=== PATIENT | male | born 1965 ===

== ENCOUNTER 2021-10-03 19:52 | Emergency (ER) | payer MEDICAID, SELFPAY ==
[2021-10-03 20:06] VITALS: BP 128/79; PULSE 98; RESP 14; TEMP 35.8; O2SAT 98; BMI 30.9
--- NOTE | 2021-10-03 20:41 | CRLHL7_ITS ---
For Patients: As a result of the Century Cures Act, medical imaging exams and procedure reports are released immediately into your electronic medical record. You may view this report before your referring provider. If you have questions, please contact your health care provider. INDICATION: Persistent cough. TECHNIQUE: Two view chest. FINDINGS: The lungs are clear. The heart, mediastinum and pulmonary vessels are of normal size. There is no evidence of pleural disease. IMPRESSION: Negative chest. Dictated by Harry Cason MD @ 10/03/2021 9:08:44 PM (Electronically Signed)
--- NOTE | 2021-10-03 21:18 | ED.NURSE ---
Report given to DENTON Morel.
--- NOTE | 2021-10-03 21:54 | ED.NURSE ---
Assisted patient with [employer] machine. Issue came up with insurance coverage. [employer] representative said that rx's could be printed and filed at a local pharmacy. Paper RX were provided to patient at time of discharge.
--- NOTE | 2021-10-05 16:55 | ED_ITS ---
HPI - URI/Sore Throat General Chief Complaint: Cough Stated Complaint: Covid+ Time Seen by Provider: 10/03/21 20:33 History of Present Illness HPI Narrative: 56-year-old man presenting to the emergency department with concern of a cough. He says when he eats he wants to cough. Drinking fluids are okay but if there cold this and inspire cough. He denies a history of reactive airway or other lung disease. He describes how in particular hurts his epigastrium with cough. Not pleuritic. Does not have abdominal pain otherwise in no particular food intolerance is. Has not apparently struggle with heartburn. Slight sore throat especially with his cough. Sounds like had more of an escalated episode of coughing this evening. And was recommended to be seen medically by his ?Patron. He was COVID positive 4 weeks ago. Feels like that had mostly resolved. Related Data Home Medications Medication Instructions Recorded Confirmed Insulin See Rx Instructions .Route .COMPLEX 10/03/21 10/03/21 metformin 1,000 mg tablet mg 10/03/21 Allergies Allergy/AdvReac Type Severity Reaction Status Date / Time No Known Drug Allergies Allergy Verified 10/03/21 20:12 Review of Systems Status of ROS: Reports: 10 or more systems reviewed and unremarkable except as noted in History and below PFSH PFSH Social History Smoking Status: Smoker, status unknown How often do you have a drink containing alcohol: never AUDIT-C Alcohol total score: 0 Non-prescribed substance use: denies use Exam Narrative: Exam Narrative: He is pleasant. NAD. Quite calm. Cranial nerves 2-12 intact. Skin is warm and dry. Has psoriatic plaquing over bilateral extremities. Slightly congested about the face but he does not have any swelling erythema or tenderness. Oropharynx is unremarkable other than his missing teeth. Abdomen is overweight soft and nontender. Lungs are clear. Equal expansion excursion. Breathing easily. Extremities are well perfused. No edema. Const: Documenting provider has reviewed patient's vital signs: yes Course Course Hospital Course: Did not require any interventions. Vital Signs Vital signs: Initial Vital Signs Temperature 96.4 F L 10/03/21 20:06 Temperature Source Temporal Artery Scan 10/03/21 20:06 Pulse Rate 98 10/03/21 20:06 Pulse Rhythm 10/03/21 20:06 Respiratory Rate 14 10/03/21 20:06 Blood Pressure 128/79 08/20/22 20:06 Blood Pressure Mean 95 10/03/21 20:06 Blood Pressure Position Sitting 10/03/21 20:06 Pulse Oximetry 98 10/03/21 20:06 Oxygen Delivery Method 10/03/21 20:06 Vital Signs Temperature 96.4 F L 10/03/21 20:06 Pulse Rate 98 10/03/21 20:06 Respiratory Rate 14 10/03/21 20:06 Blood Pressure 128/79 10/03/21 20:06 Pulse Oximetry 98 10/03/21 20:06 Oxygen Delivery Method 10/03/21 20:06 Temperature 96.4 F L 10/03/21 20:06 Pulse Rate 98 10/03/21 20:06 Respiratory Rate 14 10/03/21 20:06 Blood Pressure 128/79 10/03/21 20:06 Pulse Oximetry 98 10/03/21 20:06 Oxygen Delivery Method 10/03/21 20:06 MDM - URI/Sore Throat MDM Narrative Medical decision making narrative: It is not clear to me that there has been lingering cough since COVID diagnosis. Sounds like that was relatively mild. He does not have persistent epigastric pains generally or heartburn symptoms. And think it is unreasonable to do a chest x-ray looking for pneumothorax or evidence of aspiration. He is not actively coughing now. Vitals are well. By my read chest x-ray is WNL. No pneumothorax. No evidence of infiltrate. Discharge Plan Discharge Clinical Impression: Cough Patient Disposition: Home, Self-Care Condition: Stable Additional Instructions: Focus on hydration. Be seen for increasing cough or increasing shortness of breath, associated fever. Cough syrup and prednisone from [facility]. Take the prednisone as 60 mg daily for 2 days then 40 mg daily for 3 more days. Conc?ntrese en la hidrataci?n. Ser visto para aumentar la tos o aumentar la falta de aliento, fiebre asociada. Jarabe para la tos y prednisona de [facility]. [place] la prednisona juvenal 60 mg al d?a kenny 2 d?as y luego 40 mg al d?a kenny 3 d?as m?s. Prescriptions: No Action metformin 1,000 mg tablet Label Comments: TAKE ONE TABLET BY MOUTH TWICE A DAY WITH MORNING AND EVENING MEALS Insulin See Rx Instructions .ROUTE .COMPLEX Rx Instructions: 10units each AM; 15 units at noc; Follow Up/Referrals: Yandel Greer MD [Primary Care Provider] - Stand Alone Forms: [facility] Info Instructions
== END 2021-10-03 22:09 | disposition home or self-care (01) ==
PROVIDERS: Emergency Provider Family Medicine
DX: R05.9 Cough, unspecified (principal); Z86.16 Personal history of COVID-19
CPT/HCPCS: 71046; 99283

== ENCOUNTER 2022-03-04 19:08 | Outpatient (CLI) | payer SELFPAY | END 2022-03-04 19:09 | disposition home or self-care (01) | PROVIDERS: Visit Provider Emergency Medicine Emergency Medical Services | DX: S29.9XXA Unspecified injury of thorax, initial encounter (principal); V89.2XXA Person injured in unspecified motor-vehicle accident, traffic, initial encounter; Y92.410 Unspecified street and highway as the place of occurrence of the external cause | CPT/HCPCS: A0425; A0427 ==

== ENCOUNTER 2022-03-04 19:49 | Emergency (ER) | payer SELFPAY ==
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
--- NOTE | 2022-03-04 19:57 | CRLHL7_ITS ---
For Patients: As a result of the Century Cures Act, medical imaging exams and procedure reports are released immediately into your electronic medical record. You may view this report before your referring provider. If you have questions, please contact your health care provider. INDICATION: Chest pain. TECHNIQUE: Chest 2 views. COMPARISON: 09/2021. FINDINGS: Cardiovascular and mediastinum: Heart size and vasculature are normal in caliber and appearance. Lungs and pleural spaces: The lungs are clear. No pleural effusion or pneumothorax. Bones and soft tissues: No significant findings. IMPRESSION: No evidence of an acute pulmonary process. Dictated by Ramana Rowe MD @ 03/04/2022 8:36:25 PM (Electronically Signed)
[2022-03-04 20:11] VITALS: BP 203/115; PULSE 99; RESP 16; TEMP 36.6; O2SAT 99
[2022-03-04 21:40] VITALS: BP 151/72; PULSE 93; RESP 16; O2SAT 99
[2022-03-04 22:16] VITALS: BP 151/72; PULSE 93; RESP 16; TEMP 36.7; O2SAT 96
== END 2022-03-04 22:18 | disposition home or self-care (01) ==
LOC: ED 21:19
PROVIDERS: Emergency Provider Emergency Medicine Emergency Medical Services
DX: Z71.1 Person with feared health complaint in whom no diagnosis is made (principal); V43.52XA Car driver injured in collision with other type car in traffic accident, initial encounter
CPT/HCPCS: 71046; 76604; 76705; 93005; 93308; 99284; 99285; 99291; G0390

== ENCOUNTER 2022-12-18 21:10 | Day surgery (SDC) | payer MEDICAID, SELFPAY ==
[2022-12-18] VITALS (7 sets, daily range): BP systolic 120–138; BP diastolic 71–81; PULSE 93–107; RESP 16; TEMP 38.6; O2SAT 96–99; BMI 30.9
--- NOTE | 2022-12-18 21:37 | ED.GENADULT ---
HPI - General Adult General Date Seen: 12/18/22 Chief complaint: Abdominal Pain Stated complaint: abdominal pain, constipation Time Seen by Provider: 12/18/22 21:13 Source: patient and manager core Mode of arrival: ambulatory Limitations: language barrier History of Present Illness HPI narrative: Patient is a 57-year-old man, primarily Citizen [place]-speaking, who presents for evaluation of abdominal pain, diarrhea, cough. He says he initially got abdominal pain a few days ago, thought it was due to constipation and started to take MiraLax. He is now having diarrhea but still has abdominal pain. He describes abdominal pain as severe and diffuse. He has maybe had a little nausea but no vomiting. He has a fever here but did not noted fever at home. Cough is occasionally productive of some sputum. No bloody stools. Patient does not smoke or drink. Medications reviewed. No prior abdominal surgeries. History of diabetes and hypertension. History is obtained with the assistance of an manager core. Related Data Home Medications ?Medication ?Instructions ?Recorded ?Confirmed Insulin See Rx Instructions .Route .COMPLEX 10/03/21 06/13/23 metformin 1,000 mg tablet 1,000 mg 10/03/21 glyburide 5 mg tablet 10 mg PO BID 12/19/22 06/13/23 insulin NPH isoph U-100 human 100 20 unit subcut BID 12/19/22 06/13/23 unit/mL subcutaneous suspension (Humulin N NPH U-100 Insulin (isophane susp)) lisinopril 20 mg tablet 20 mg PO DAILY 12/19/22 06/13/23 metformin 1,000 mg tablet 1,000 mg PO BIDWMEAL 12/19/22 12/19/22 polyethylene glycol 3350 17 17 g PO DAILY PRN 12/19/22 06/13/23 gram/dose oral powder (Miralax) aspirin 81 mg tablet,delayed 81 mg PO DAILY diabetes mellitus 06/13/23 06/13/23 release clotrimazole-betamethasone 1 applic topical 06/13/23 %-0.05 % topical cream Previous Rx's ?Medication ?Instructions ?Recorded sennosides 8.6 mg capsule (senna) 8.6 mg PO DAILY PRN constipation 12/19/22 #90 caps cyclobenzaprine 10 mg tablet 10 mg PO TID #15 tabs 02/14/24 ketorolac 10 mg tablet 10 mg PO Q8H 5 days #15 tabs 03/30/23 cyclobenzaprine 10 mg tablet 10 mg PO TID #15 tabs 05/12/23 ketorolac 10 mg tablet 10 mg PO Q8H 5 days #15 tabs 05/12/23 codeine 10 mg-guaifenesin 100 mg/5 10 ml PO Q4-6H PRN #200 mL 06/13/23 mL oral liquid polymyxin B sulfate 10,000 1 drp ophthalmic (eye) Q3H 7 days 06/13/23 unit-trimethoprim 1 mg/mL eye drops #10 mL Allergies Allergy/AdvReac Type Severity Reaction Status Date / Time No Known Drug Allergies Allergy Verified 06/13/23 19:39 Review of Systems Status of ROS: Reports: 10 or more systems reviewed and unremarkable except as noted in History and below [facility] Medical History Psoriasis ?L40.9 - Psoriasis, unspecified (ICD-10) Diabetes ?E11.9 - Type 2 diabetes mellitus without complications (ICD-10) Hypertension ?I10 - Essential (primary) hypertension (ICD-10) Social History (System 05/26/23 @ 11:08 by Shreya Crystal) What is your current living situation?: I presently have a place to live Problems where you live: no known problems Problems where you live details: no known problems In the past 12 months, utilities in danger of being shut off: yes In past 12 months, lack of transportation kept you from medical appts, meetings, work, or getting things needed for daily living: no In the past 12 mos, have been you worried that your food would run out before you had money to buy more?: sometimes true In the past 12 mos, the food you bought just didn't last and you didn't have money to buy more?: sometimes true Smoking Status: Never smoker Do you use any of these nicotine containing products: None Second hand tobacco smoke exposure: No How often do you have a drink containing alcohol: never AUDIT-C Alcohol total score: 0 Non-prescribed substance use: denies use Caffeine: Yes (Coffee) How often does anyone, including family, friends and others, physically hurt you: never How often does anyone, including family, friends and others, insult or talk down to you: never How often does anyone, including family, friends and others, threaten you with harm: never How often does anyone, including family, friends and others, scream or curse at you: never service: No Exam Narrative: Exam Narrative: Vital signs as noted above. In general, an alert, nontoxic middle-aged male. Head: Normocephalic, atraumatic. Eyes: Pupils are equal reactive. Extraocular movements are full. Conjunctivae are normal. ENT: Mucous membranes are moist. Neck: Supple without lymphadenopathy. Heart: Mildly tachycardic, no obvious murmur. Lungs: Clear bilaterally. No increased work of breathing, crackles or wheezes. Abdomen: Soft and nondistended, diffuse tenderness without rebound guarding or rigidity. No localizing tenderness. Extremities: Well perfused. No edema. No calf tenderness. Pulses intact. Neurologic: Patient is alert and oriented to person and place. Speech is fluent. Face is symmetric. Moves all extremities equally. Affect: Normal. Skin: Warm and dry. Well perfused. Const: Vital Signs, click to edit/add: Vital Signs - 24 hr 12/18/22 21:18 12/18/22 21:30 12/18/22 22:26 Temperature 101.5 F H Pulse Rate 105 H 96 Pulse Rate [Pulse Oximeter] 107 H Respiratory Rate 16 16 Blood Pressure 120/80 Blood Pressure [Ri ght Upper Arm] 127/81 Pulse Oximetry 99 99 97 Oxygen Delivery Me thod Room Air Room Air Room Air 12/18/22 22:30 12/18/22 22:31 12/18/22 22:45 Temperature Pulse Rate 96 95 93 Pulse Rate [Pulse Oximeter] Respiratory Rate Blood Pressure 138/71 Blood Pressure [Ri ght Upper Arm] Pulse Oximetry 97 97 96 Oxygen Delivery Me thod 12/18/22 23:54 12/19/22 00:00 12/19/22 00:31 Temperature Pulse Rate 107 H 97 Pulse Rate [Pulse Oximeter] Respiratory Rate Blood Pressure 117/69 Blood Pressure [Ri ght Upper Arm] Pulse Oximetry 99 97 Oxygen Delivery Me thod Documenting provider has reviewed patient's vital signs: yes Course Course ED Course: Differential this point is broad and includes infectious illnesses such as COVID or pneumonia, pancreatitis, cholecystitis, appendicitis, diverticulitis or colitis among others. Will place an IV, give some Toradol to start and see how he does pain boswell. A L normal saline is ordered. I am going to get a little blood work back before deciding on imaging. Labs showed normal LFTs and lipase, elected to get a CT scan of the abdomen. White blood cell count was elevated 12.5, hemoglobin of 13.9 left shift with 79% neutrophils. Metabolic panel unremarkable, blood sugar is 144. Lactate 1.6. CRP is elevated at 3.7, urinalysis is notable for protein and glucose but no significant white blood cells. 5-10 red blood cells. Blood alcohol was negative, COVID was negative. CT abdomen by my review showed inflammatory changes in the right lower quadrant and a dilated appendix, suggestive of acute appendicitis. Final radiology read: FINDINGS: Lower chest: Unremarkable. Liver: Unremarkable. Spleen: Unremarkable. Pancreas: Unremarkable. Gallbladder and bile ducts: Unremarkable. Adrenal glands: Unremarkable. Kidneys: Unremarkable. GI tract: The appendix measures 1.4 cm. Mild periappendiceal fat stranding. No abscess or extraluminal air. Vascular structures: Unremarkable. Lymph nodes: Unremarkable. Miscellaneous: Unremarkable. No free air or significant free fluid. Pelvic Organs: Unremarkable. Bones: Unremarkable for age. IMPRESSION: Acute appendicitis. No abscess or extraluminal air. Findings discussed with Dr. Han at 12:40 a.m. on December 19, 2022.Case discussed with Dr. Richmond on-call for General surgery. Plan pending her review. Plan will be admission to the hospital for appendectomy in the morning. Pain is well controlled at this time. Vital Signs Vital signs: Initial Vital Signs Temperature 101.5 F H 12/18/22 21:18 Temperature Source Temporal Artery Scan 12/18/22 21:18 Pulse Rate 107 H 12/18/22 21:18 Respiratory Rate 16 12/18/22 21:18 Blood Pressure 127/81 12/18/22 21:18 Blood Pressure Mean 96 12/18/22 21:18 Blood Pressure Position Supine 12/18/22 21:18 Pulse Oximetry 99 12/18/22 21:18 Oxygen Delivery Method Room Air 12/18/22 21:18 Vital Signs Temperature 101.5 F H 12/18/22 21:18 Pulse Rate 107 H 12/18/22 21:18 Respiratory Rate 16 12/18/22 21:18 Blood Pressure 127/81 12/18/22 21:18 Pulse Oximetry 99 12/18/22 21:18 Oxygen Delivery Method Room Air 12/18/22 21:18 Temperature 97.7 F 12/19/22 11:45 Pulse Rate 104 H 12/19/22 15:00 Respiratory Rate 16 12/19/22 15:00 Blood Pressure 122/68 12/19/22 13:00 Pulse Oximetry 98 12/19/22 13:00 Oxygen Delivery Method Room Air 12/19/22 13:00 Fraction of Inspired Oxygen 2 12/19/22 10:17 Medical Decision Making Lab Data Labs: Lab Results 12/18/22 Range/Units 21:45 WBC 12.56 H (4.50-11.00) K/uL RBC 4.74 (4.30-5.90) m/uL Hgb 13.9 (13.5-17.5) gm/dL Hct 40.3 (37.0-53.0) % MCV 85 (80-100) fL MCH 29 (26-34) pg MCHC 35 (32-36) gm/dL RDW Coeff of Brendan 12.7 (11.5-15.5) % Plt Count 240 (140-440) K/uL Neut % (Auto) 79.1 H (42.0-72.0) % Lymph % (Auto) 11.5 L (20-44) % [place] % (Auto) 7.7 (0.0-11.0) % Eos % (Auto) 0.6 (0.0-7.0) % Baso % (Auto) 0.3 (0.0-3.0) % Neut # (Auto) 9.90 H (1.7-7.0) K/uL Lymph # (Auto) 1.40 (0.90-2.90) K/uL [place] # (Auto) 1.00 H (0.00-0.90) K/UL Eos # (Auto) 0.10 (0.00-0.50) K/uL Baso # (Auto) 0.00 (0.00-0.30) K/uL Abs Immat Gran (auto) 0.10 (0.00-0.30) K/uL Imm/Tot Granulo (auto) 0.8 % Sodium 138 (135-149) mmol/L Potassium 4.7 (3.6-5.1) mmol/L Chloride 101 (96-114) mmol/L Carbon Dioxide 28 (20-32) mmol/L Anion Gap 9 (7-15) mEq/L BUN 27 (7-30) mg/dL Creatinine 0.9 (0.5-1.5) mg/dL Estimated Creat Clear 76.74 Estimated GFR 100 ml/min Glucose 144 H (60-115) mg/dL Lactate 1.6 (0.5-1.9) mmol/L Calcium 9.9 (8.4-10.6) mg/dL Total Bilirubin 0.8 (0.1-1.5) mg/dL Direct Bilirubin 0.0 (0.0-0.5) mg/dL AST 41 H (12-35) U/L ALT 27 (4-50) U/L Alkaline Phosphatase 104 (40-150) U/L C-Reactive Protein 3.7 H (0.5-1.0) mg/dL Total Protein 7.7 (6.0-8.3) g/dL Albumin 4.3 (3.3-5.0) g/dL Lipase 45 (23-300) U/L Urine Color Yellow (Yellow) Urine Appearance Clear (Clear) Urine pH 5.5 (5.0-8.5) Ur Specific [place] 1.020 (1.000-1.030) Urine Protein 3+ A (Negative) Urine Glucose (UA) 2+ A (Negative) Urine Ketones Negative (Negative) Urine Blood 1+ A (Negative) Urine Nitrite Negative (Negative) Urine Bilirubin Negative (Negative) Urine Urobilinogen 0.2 (0.2-1.0) Ur Leukocyte Esterase Negative (Negative) Urine RBC 5-10 A (0-2) Urine WBC 0-2 (0-5) Ur Squamous Epith Cells Few (None-Few) Urine Bacteria None (None) Ethyl Alcohol < 0.01 L (0.01-0.03) % SARS-CoV-2 (PCR) Negative SARS-CoV-2 (Negative) Influenza Type A (PCR) Negative PCR FLU A (Negative) Influenza Type B (PCR) Negative PCR FLU B (Negative) RSV (PCR) Negative PCR RSV (Negative) Discharge Plan Discharge Clinical Impression: Acute appendicitis Patient Disposition: Admitted As Observation Condition: Improved Activity Level: No strenuous activity Activity Detail: Activity as tolerated. Avoid strenuous activity. No lifting greater than 20 lb for 2 weeks. Discharge Diet: Regular
[2022-12-18 22:00] LABS: Lactate Sepsis w/Reflex* 1.6 mmol/L (0.5-1.9)
[2022-12-18] MEDS: 0.9 % SODIUM CHLORIDE 1000 ml 1,000 ML IV (22:00)
[2022-12-18] MEDS: KETOROLAC 15 MG/ML inj IVP (22:00)
[2022-12-18 22:05] LABS: Appearance Urine Clear (Clear); Bilirubin Urine Negative (Negative); Blood Urine 1+ (Negative); Color Urine Yellow (Yellow); Glucose Urine 2+ (Negative); Ketones Urine Negative (Negative); Leukocyte Esterase Urine Negative (Negative); Nitrite Urine Negative (Negative); Protein Urine 3+ (Negative); Urobilinogen Urine 0.2 (0.2-1.0); pH Urine 5.5 (5.0-8.5)
[2022-12-18 22:13] LABS: Squamous Epithelial Cell Urine Few (None-Few); WBC Urine 0-2 (0-5)
[2022-12-18 22:14] LABS: Albumin* 4.3 g/dL (3.3-5.0)
[2022-12-18 22:15] LABS: Chloride* 101 mmol/L (96-114); Potassium* 4.7 mmol/L (3.6-5.1); Sodium* 138 mmol/L (135-149)
[2022-12-18 22:16] LABS: Basophils Percent Auto 0.3 % (0.0-3.0); Eosinophils Percent Auto 0.6 % (0.0-7.0); Hematocrit 40.3 % (37.0-53.0); Hemoglobin* 13.9 gm/dL (13.5-17.5); Immature Granulocytes Pct Auto 0.8 %; Lymphocytes Percent Auto 11.5 % (20-44); Mean Corpuscular HGB Conc 35 gm/dL (32-36); Mean Corpuscular Hemoglobin 29 pg (26-34); Mean Corpuscular Volume 85 fL (80-100); Monocytes Percent Auto 7.7 % (0.0-11.0); Neutrophils Percent Auto 79.1 % (42.0-72.0); Platelet Count* 240 K/uL (140-440); RDW Coefficient of Variation % 12.7 % (11.5-15.5); Red Blood Count 4.74 m/uL (4.30-5.90); White Blood Count* 12.56 K/uL (4.50-11.00)
[2022-12-18 22:17] LABS: Alkaline Phosphatase* 104 U/L (40-150); Aspartate Amino Transferase* 41 U/L (12-35); Bilirubin Total* 0.8 mg/dL (0.1-1.5); Lipase* 45 U/L (23-300); Total Protein* 7.7 g/dL (6.0-8.3)
[2022-12-18 22:18] LABS: Alanine Aminotransferase* 27 U/L (4-50); Creatinine* 0.9 mg/dL (0.5-1.5); Est. Creatinine Clearance* 76.74; Estimated Glomerular Filt Rate 100 ml/min
[2022-12-18 22:19] LABS: Anion Gap 9 mEq/L (7-15); Blood Urea Nitrogen* 27 mg/dL (7-30); Calcium* 9.9 mg/dL (8.4-10.6); Carbon Dioxide* 28 mmol/L (20-32); Glucose* 144 mg/dL (60-115)
[2022-12-18 22:22] LABS: C Reactive Protein* 3.7 mg/dL (0.5-1.0); Ethanol* < 0.01 % (0.01-0.03); Slide Review Reflex No
--- NOTE | 2022-12-18 22:31 | CRLHL7_ITS ---
For Patients: As a result of the Century Cures Act, medical imaging exams and procedure reports are released immediately into your electronic medical record. You may view this report before your referring provider. If you have questions, please contact your health care provider. INDICATION: Abdominal pain and fever TECHNIQUE: CT abdomen and pelvis acquired with 89 cc Isovue 370 IV contrast. COMPARISON: None FINDINGS: Lower chest: Unremarkable. Liver: Unremarkable. Spleen: Unremarkable. Pancreas: Unremarkable. Gallbladder and bile ducts: Unremarkable. Adrenal glands: Unremarkable. Kidneys: Unremarkable. GI tract: The appendix measures 1.4 cm. Mild periappendiceal fat stranding. No abscess or extraluminal air. Vascular structures: Unremarkable. Lymph nodes: Unremarkable. Miscellaneous: Unremarkable. No free air or significant free fluid. Pelvic Organs: Unremarkable. Bones: Unremarkable for age. IMPRESSION: Acute appendicitis. No abscess or extraluminal air. Findings discussed with Dr. Han at 12:40 a.m. on December 19, 2022. Please note that all CT scans at this facility use dose modulation, iterative reconstruction, and/or weight-based dosing when appropriate to reduce radiation dose to as low as reasonably achievable. Dictated by Lexie De La Cruz MD @ 12/19/2022 12:41:02 AM (Electronically Signed)
[2022-12-18 22:41] LABS: PCR FLU A Negative PCR FLU A (Negative); PCR FLU B Negative PCR FLU B (Negative); PCR RSV Negative PCR RSV (Negative)
[2022-12-18 22:44] LABS: SARS PCR* Negative SARS-CoV-2 (Negative)
[2022-12-18] MEDS: LORazepam 2 MG/ML inj 1 MG IVP (23:16)
[2022-12-19] VITALS (20 sets, daily range): BP systolic 108–165; BP diastolic 55–78; PULSE 90–111; RESP 14–18; TEMP 36.4–36.8; O2SAT 92–100; BMI 29.9
--- NOTE | 2022-12-19 03:00 | W.PM.THH&P_ITS ---
Telehealth- H&P: [facility] History of Present Illness Date Seen: 12/19/22 Chief complaint: abdominal pain, constipation Narrative: Narciso Elmore is seen as an Interactive Telehealth visit. 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 He has been admitted through the emergency room. He is Ethiopian-speaking. Professional web communications specialist was used. He tells me he has had 3 days of increasing abdominal pain by the time he was taken to the hospital it was 10 out of 10. He initially thought it was constipation took MiraLAX at home he has a little bit of loose stools. He was given pain medications in the emergency room his pain is significantly improved. At home he was nauseated but did not vomit. No fevers no chills no chest pain no shortness of breath. He does not have any other symptoms. Review of Systems Narrative: A complete review of systems was performed positive pertinence and negatives in the [facility] [place] Psoriasis ?L40.9 - Psoriasis, unspecified (ICD-10) Diabetes ?E11.9 - Type 2 diabetes mellitus without complications (ICD-10) Hypertension ?I10 - Essential (primary) hypertension (ICD-10) Social History What is your current living situation?: I presently have a place to live Problems where you live: no known problems Problems where you live details: no known problems In the past 12 months, utilities in danger of being shut off: yes In past 12 months, lack of transportation kept you from medical appts, meetings, work, or getting things needed for daily living: no In the past 12 mos, have been you worried that your food would run out before you had money to buy more?: sometimes true In the past 12 mos, the food you bought just didn't last and you didn't have money to buy more?: sometimes true Smoking Status: Never smoker Second hand tobacco smoke exposure: No How often do you have a drink containing alcohol: never AUDIT-C Alcohol total score: 0 Non-prescribed substance use: denies use Caffeine: Yes (Coffee) How often does anyone, including family, friends and others, physically hurt you : never How often does anyone, including family, friends and others, insult or talk down to you: never How often does anyone, including family, friends and others, threaten you with harm: never How often does anyone, including family, friends and others, scream or curse at you: never Meds Home Medications and Allergies Home Medications Medication Instructions Recorded Confirmed Type blood pressure medication 12/18/22 History insulin aspart U-100 .ROUTE 12/18/22 History metformin .ROUTE 12/18/22 History Allergies Allergy/AdvReac Type Severity Reaction Status Date / Time No Known Drug Allergies Allergy Verified 12/18/22 22:36 Exam Narrative Exam Narrative: Physical Exam GENERAL: ?vital signs reviewed, well developed and nourished, in no distress HEENT: pupils are equal round and reactive to light, extraocular movements are grossly within normal limits and oral mucosa is moist. NECK: Supple without lymphadenopathy or thyromegaly according to nursing staff examination observation HEART: Regular rate and rhythm without any rubs, murmurs, or gallops. LUNGS: Clear to auscultation bilaterally with good air movement throughout ABDOMEN: Observation from nurse assisted exam, abdomen appears soft, Mildly tender he does appear to have some guarding does not have any rebound currently mild peritoneal signs.Bowel sounds are present EXTREMITIES: Strength and sensation is observed to be grossly within normal limits in the upper and lower extremities.? No focal strength deficit is observed. SKIN:? Observed warm and dry with color normal Const Vital Signs, click to edit/add: Vital Signs - 24 hr 12/18/22 21:18 12/18/22 21:30 12/18/22 22:26 Temperature 101.5 F H Pulse Rate 105 H 96 Pulse Rate [Pulse Oximeter] 107 H Respiratory Rate 16 16 Blood Pressure 120/80 Blood Pressure [Left Arm] Blood Pressure [Right Upper Arm] 127/81 Pulse Oximetry 99 99 97 Oxygen Delivery Method Room Air Room Air Room Air 12/18/22 22:30 12/18/22 22:31 12/18/22 22:45 Temperature Pulse Rate 96 95 93 Pulse Rate [Pulse Oximeter] Respiratory Rate Blood Pressure 138/71 Blood Pressure [Left Arm] Blood Pressure [Right Upper Arm] Pulse Oximetry 97 97 96 Oxygen Delivery Method 12/18/22 23:54 12/19/22 00:00 12/19/22 00:31 Temperature Pulse Rate 107 H 97 Pulse Rate [Pulse Oximeter] Respiratory Rate Blood Pressure 117/69 Blood Pressure [Left Arm] Blood Pressure [Right Upper Arm] Pulse Oximetry 99 97 Oxygen Delivery Method 12/19/22 01:00 CDT 12/19/22 01:28 CDT 12/19/22 01:03 REFUSE LABORER Temperature 98.1 F 98.2 F Pulse Rate 94 Pulse Rate [Pulse Oximeter] 95 Respiratory Rate 16 18 Blood Pressure 108/55 L Blood Pressure [Left Arm] 165/78 H Blood Pressure [Right Upper Arm] Pulse Oximetry 98 100 Oxygen Delivery Method Room Air Room Air 12/19/22 01:03 REFUSE LABORER Temperature Pulse Rate Pulse Rate [Pulse Oximeter] Respiratory Rate 16 Blood Pressure Blood Pressure [Left Arm] Blood Pressure [Right Upper Arm] Pulse Oximetry 100 Oxygen Delivery Method Room Air Hospitalist - H&P: Result Labs Labs: Short CBC 12/18/22 Range/Units 21:45 WBC 12.56 H (4.50-11.00) K/uL Hgb 13.9 (13.5-17.5) gm/dL Hct 40.3 (37.0-53.0) % Plt Count 240 (140-440) K/uL BMP 12/18/22 21:45 Sodium 138 Potassium 4.7 Chloride 101 Carbon Dioxide 28 BUN 27 Creatinine 0.9 Glucose 144 H Calcium 9.9 Liver Function 12/18/22 Range/Units 21:45 Total Bilirubin 0.8 (0.1-1.5) mg/dL Direct Bilirubin 0.0 (0.0-0.5) mg/dL AST 41 H (12-35) U/L ALT 27 (4-50) U/L Alkaline Phosphatase 104 (40-150) U/L Albumin 4.3 (3.3-5.0) g/dL Urine 12/18/22 Range/Units 21:45 Urine Color Yellow (Yellow) Urine Appearance Clear (Clear) Urine pH 5.5 (5.0-8.5) Ur Specific [place] 1.020 (1.000-1.030) Urine Protein 3+ A (Negative) Urine Glucose (UA) 2+ A (Negative) Assessment and Plan Assessment and plan (1) Acute appendicitis: Status: Acute (2) Diabetes: Status: Acute (3) Hypertension: Status: Acute Plan Acute appendicitis?patient with a mild white count fever. He does not look particularly toxic at this point we will place him on Invanz. CT scan supporting the diagnosis of appendicitis. Surgery was contacted by the emergen cy room. We will keep him n.p.o. Anticipate surgery in the morning. This was discussed in detail with patient via layer out. We will use IV hydromorphone for pain control along with Toradol. Normal saline at 100 MLS per hour. Diabetes?patient sounds like he takes insulin unclear what kind and how much he takes. It sounds like he takes 20 units twice a day likely glargine but potentially could be other types of insulin. This will need to be clarified for now we will place him on the low-dose sliding scale. It also sounds like he may be on metformin. We will need to clarify his doses. Hypertension?patient appears to take something for high blood pressure. We will need to clarify this. DVT prophylaxis will use subcutaneous Lovenox CODE STATUS was discussed on admission he wishes to be a full code Telehealth: Statement Statement Telehealth Visit: Today's History and Physical is provided via interactive telehealth by Richard An DO.? Patient is located at [facility].? Provider is located at [facility].? Nursing staff assisted with the patient's exam. The visit being done today meets criteria for a telehealth visit and the patient or patient?s parent/guardian is aware the visit is a telehealth visit. Camera Start Time: 02:19 Camera End Time: 02:44
[2022-12-19] MEDS: SODIUM CHLORIDE 0.9 % (FLUSH) 10 ML SYRINGE 5 ML IVF (03:12)
[2022-12-19] MEDS: ERTAPENEM 1 GM in 0.9 % SODIUM CHLORIDE Mini-bag 100 ML IVPB (03:12)
[2022-12-19] MEDS: 0.9 % SODIUM CHLORIDE 1000 ml 1,000 ML 100 ML IV ×2 (03:13→12:00)
--- NOTE | 2022-12-19 06:05 | PC.NURSE ---
Pt alert and oriented x3. Afebrile. Pt reports having 10/10 abdominal pain emergency department but states he is having 0/10 now, pt was given Toradol in emergency department. Pt is up ad dari in room. Pt has been tolerating a NPO diet since 2300 per report from RN in ER. Pt slept throughout most of night after admission around 0140.
--- NOTE | 2022-12-19 09:01 | P.GSCN_ITS ---
History of Present Illness Consult details Date Seen: 12/19/22 Consult date: 12/19/22 Narrative: Patient presented to the emergency department last night for lower abdominal pain. He states the pain started about 3 days ago and has just increased in intensity. Initially started from the middle of his abdomen but then migrated to the right lower quadrant. He has never had pain like this before. Denies any nausea or vomiting. Has had a decrease in appetite. Reports a little bit of diarrhea. No fevers at home. He has never had abdominal surgery before. 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 Patient was interviewed with an synthetic chemist. Review of Systems Status of ROS: Reports: 6 or more systems reviewed and unremarkable except as noted in History and below PFSH [facility] Medical History Psoriasis ?L40.9 - Psoriasis, unspecified (ICD-10) Diabetes ?E11.9 - Type 2 diabetes mellitus without complications (ICD-10) Hypertension ?I10 - Essential (primary) hypertension (ICD-10) Social History What is your current living situation?: I presently have a place to live Problems where you live: no known problems Problems where you live details: no known problems In the past 12 months, utilities in danger of being shut off: yes In past 12 months, lack of transportation kept you from medical appts, meetings, work, or getting things needed for daily living: no In the past 12 mos, have been you worried that your food would run out before you had money to buy more?: sometimes true In the past 12 mos, the food you bought just didn't last and you didn't have money to buy more?: sometimes true Smoking Status: Never smoker Second hand tobacco smoke exposure: No How often do you have a drink containing alcohol: never AUDIT-C Alcohol total score: 0 Non-prescribed substance use: denies use Caffeine: Yes (Coffee) How often does anyone, including family, friends and others, physically hurt you : never How often does anyone, including family, friends and others, insult or talk down to you: never How often does anyone, including family, friends and others, threaten you with harm: never How often does anyone, including family, friends and others, scream or curse at you: never Meds Home Medications and Allergies Home Medications Medication Instructions Recorded Confirmed Type glyburide 5 mg tablet 10 mg PO BID 12/19/22 12/19/22 History insulin NPH isoph U-100 human 100 20 unit subcut BID 12/19/22 12/19/22 History unit/mL subcutaneous suspension (Humulin N NPH U-100 Insulin (isophane susp)) lisinopril 20 mg tablet 20 mg PO DAILY 12/19/22 12/19/22 History metformin 1,000 mg tablet 1,000 mg PO BIDWMEAL 12/19/22 12/19/22 History polyethylene glycol 3350 17 17 g PO DAILY PRN 12/19/22 12/19/22 History gram/dose oral powder (Miralax) Allergies Allergy/AdvReac Type Severity Reaction Status Date / Time No Known Drug Allergies Allergy Verified 12/18/22 22:36 Exam Narrative: Exam Narrative: General: Alert and oriented, no acute distress Respiratory: Equal breath rise bilaterally, maintained on room CV: Well perfused Abdomen: Soft, tender to palpation right lower quadrant with some guarding. Const: Vital Signs, click to edit/add: Vital Signs - 24 hr 12/18/22 21:18 12/18/22 21:30 12/18/22 22:26 Temperature 101.5 F H Pulse Rate 105 H 96 Pulse Rate [Pulse Oximeter] 107 H Respiratory Rate 16 16 Blood Pressure 120/80 Blood Pressure [Le ft Arm] Blood Pressure [Ri ght Upper Arm] 127/81 Pulse Oximetry 99 99 97 Oxygen Delivery Me thod Room Air Room Air Room Air 12/18/22 22:30 12/18/22 22:31 12/18/22 22:45 Temperature Pulse Rate 96 95 93 Pulse Rate [Pulse Oximeter] Respiratory Rate Blood Pressure 138/71 Blood Pressure [Le ft Arm] Blood Pressure [Ri ght Upper Arm] Pulse Oximetry 97 97 96 Oxygen Delivery Me thod 12/18/22 23:54 12/19/22 00:00 12/19/22 00:31 Temperature Pulse Rate 107 H 97 Pulse Rate [Pulse Oximeter] Respiratory Rate Blood Pressure 117/69 Blood Pressure [Le ft Arm] Blood Pressure [Ri ght Upper Arm] Pulse Oximetry 99 97 Oxygen Delivery Me thod 12/19/22 01:00 CDT 12/19/22 01:28 CDT 12/19/22 01:03 CLOTH NAPPING SUPERVISOR Temperature 98.1 F 98.2 F Pulse Rate 94 Pulse Rate [Pulse Oximeter] 95 Respiratory Rate 16 18 Blood Pressure 108/55 L Blood Pressure [Le ft Arm] 165/78 H Blood Pressure [Ri ght Upper Arm] Pulse Oximetry 98 100 Oxygen Delivery Me thod Room Air Room Air 12/19/22 01:03 CLOTH NAPPING SUPERVISOR Temperature Pulse Rate Pulse Rate [Pulse Oximeter] Respiratory Rate 16 Blood Pressure Blood Pressure [Le ft Arm] Blood Pressure [Ri ght Upper Arm] Pulse Oximetry 100 Oxygen Delivery Me thod Room Air Results Labs Labs: Abnormal lab results 12/18/22 Range/Units 21:45 WBC 12.56 H (4.50-11.00) K/uL Neut % (Auto) 79.1 H (42.0-72.0) % Lymph % (Auto) 11.5 L (20-44) % Neut # (Auto) 9.90 H (1.7-7.0) K/uL [place] # (Auto) 1.00 H (0.00-0.90) K/UL Glucose 144 H (60-115) mg/dL AST 41 H (12-35) U/L C-Reactive Protein 3.7 H (0.5-1.0) mg/dL Urine Protein 3+ A (Negative) Urine Glucose (UA) 2+ A (Negative) Urine Blood 1+ A (Negative) Urine RBC 5-10 A (0-2) Ethyl Alcohol < 0.01 L (0.01-0.03) % Diabetes panel 12/18/22 Range/Units 21:45 Sodium 138 (135-149) mmol/L Potassium 4.7 (3.6-5.1) mmol/L Chloride 101 (96-114) mmol/L Carbon Dioxide 28 (20-32) mmol/L BUN 27 (7-30) mg/dL Creatinine 0.9 (0.5-1.5) mg/dL Glucose 144 H (60-115) mg/dL Calcium 9.9 (8.4-10.6) mg/dL AST 41 H (12-35) U/L ALT 27 (4-50) U/L Alkaline Phosphatase 104 (40-150) U/L Total Protein 7.7 (6.0-8.3) g/dL Albumin 4.3 (3.3-5.0) g/dL Calcium panel 12/18/22 Range/Units 21:45 Calcium 9.9 (8.4-10.6) mg/dL Albumin 4.3 (3.3-5.0) g/dL Pituitary panel 12/18/22 Range/Units 21:45 Sodium 138 (135-149) mmol/L Potassium 4.7 (3.6-5.1) mmol/L Chloride 101 (96-114) mmol/L Carbon Dioxide 28 (20-32) mmol/L BUN 27 (7-30) mg/dL Creatinine 0.9 (0.5-1.5) mg/dL Glucose 144 H (60-115) mg/dL Calcium 9.9 (8.4-10.6) mg/dL Adrenal panel 12/18/22 Range/Units 21:45 Sodium 138 (135-149) mmol/L Potassium 4.7 (3.6-5.1) mmol/L Chloride 101 (96-114) mmol/L Carbon Dioxide 28 (20-32) mmol/L BUN 27 (7-30) mg/dL Creatinine 0.9 (0.5-1.5) mg/dL Glucose 144 H (60-115) mg/dL Calcium 9.9 (8.4-10.6) mg/dL Total Bilirubin 0.8 (0.1-1.5) mg/dL AST 41 H (12-35) U/L ALT 27 (4-50) U/L Alkaline Phosphatase 104 (40-150) U/L Total Protein 7.7 (6.0-8.3) g/dL Albumin 4.3 (3.3-5.0) g/dL All other labs normal. Imaging Abdomen CT scan report/results: report reviewed and image reviewed Assessment and Plan Assessment and plan (1) Acute appendicitis: Status: Acute Plan The patient presented with a history, exam and imaging findings consistent with acute appendicitis. I discussed the treatment options with the patient including non-surgical and surgical options. I recommended laparoscopic appendectomy. The risks of surgery were reviewed with the patient including the risks of bleeding, post-operative wound or intra-abdominal infection, injury to abdominal structures and possible conversion to an open operation. We also discussed anesthetic complications including NE, stroke, respiratory failure and blood clots. The patient voiced an understanding of our conversation, had the opportunity to ask questions, agreed to accept the risks of surgery and asked that we proceed with surgery.
[2022-12-19] MEDS: PIPERACILLIN/TAZOBACTAM 3.375 GM in 0.9 % SODIUM CHLORIDE Mini-bag 100 ML IVPB (09:19)
[2022-12-19] MEDS: LACTATED RINGERS 1000 ML 1,000 ML 100 ML IV (09:20)
[2022-12-19] MEDS: BUPIVACAINE 0.25% 30 ML INJECTION (09:28)
--- NOTE | 2022-12-19 09:51 | PM.GSPRC ---
Operative Note Pre-op diagnosis: Acute appendicitis Post-op diagnosis: Same, non perforated Type of Procedure: Laparoscopic appendectomy Indications: Patient is a 57-year-old male who presented to the emergency department with clinical history and CT imaging confirming a diagnosis of acute, uncomplicated appendicitis. Risks and benefits of operative intervention were discussed at length with the patient. Risks included but was not limited to: Bleeding, infection, risk of damage to surrounding structures, possible need for additional procedures, possible need to convert to an open operation and postoperative complications such as pneumonia, pulmonary emboli or [place]. All questions and concerns were addressed with the patient agreeing to proceed. Procedure Description: After discussing the risks and benefits of the procedure, the patient signed informed consent.? The operative site was marked and the patient was brought to the operating room and placed on the operating table in supine position.? Care was taken to pad the patient's pressure points.?? The patient was then intubated by anesthesia.?? The operative site was then prepped and draped in the usual sterile fashion.? A time-out was then performed. Entrance to the abdomen was obtained via a 5 mm optical trocar in the left upper quadrant. The abdomen was insufflated and briefly surveyed for any signs of injury. There were none. Incidental finding of a right inguinal hernia, no involvement of incarcerated omentum or appendix. A 12 mm port was placed lateral to the umbilicus as well as a 5 mm port in the left lower quadrant under direct vision. The patient was then placed in Trendelenburg position with the right side up. The small bowel was gently moved out of the way and the appendix was in view. A small amount of dissection was necessary to free the appendix from the surrounding pelvic attachments. This was grasped and pulled into view. Thickened mesentery with associated lymphadenopathy noted. A mesenteric window was created between the base of the appendix and the mesoappendix. A 45 mm Endo-KIKE purple load stapler was then used to transect the appendix at its base. A 60 mm vascular load stapler was then used to take the mesoappendix. The staple lines were inspected for bleeding. A small area of pinpoint arterial bleeding was identified on the mesentery. This was controlled with a single 5 mm clip. The appendix was then removed from the abdomen using an Endo-Catch bag. Moderate amount of murky fluid was suctioned from the pelvis. The appendix specimen was sent to pathology. The 12 mm port site fascia was closed with 0 Vicryl via the Joe-Annetta. All other ports removed under direct visualization. The skin was then closed with absorbable subcuticular suture. Sterile dressings were then applied. Instrument sponge and needle counts were correct at the end of the case. The patient was then woken and transported to the PACU in stable condition. Findings: Inflamed appendix, no evidence of perforation. Anesthesia: GETA Surgeon: Cara Richmond MD Estimated blood loss (mL): 5 Specimen: Appendix Condition: stable Disposition: PACU Date of procedure: 12/19/22
--- NOTE | 2022-12-19 10:06 | P.ANES_ITS ---
Anesthesia Charges Start Date/Time Anesthesia Start Date: 12/19/22 Anesthesia Start Time: 08:56 Stop Date/Time Anesthesia Stop Date: 12/19/22 Anesthesia Stop Time: 10:04 Summary Emergency: MANAGER STATISTICS
--- NOTE | 2022-12-19 12:31 | P.DS_ITS ---
DS: Providers Provider Date Seen: 12/19/22 Primary care physician: Not a Local Provider Attending Physician on discharge: Cara Richmond MD DS: Summary Hospital Course Hospital Course: Patient was admitted to the hospital with evidence of acute, uncomplicated appendicitis. He was taken to the operating room for laparoscopic appendectomy. Postoperatively the patient did well. There was no evidence of intraoperative perforation. At the time of discharge he was tolerating a regular diet, ambulating without difficulty in voiding independently. Plan for follow-up in clinic in 2 weeks. Time Spent with Patient Time attestation: Total time spent providing and/or coordinating discharge services: Exam Narrative: Exam Narrative: Abdomen: Soft, appropriately tender over incision sites. Steri-Strips in place clean/dry/intact Const: Vital Signs, click to edit/add: Vital Signs - 24 hr 12/18/22 21:18 12/18/22 21:30 12/18/22 22:26 Temperature 101.5 F H Pulse Rate 105 H 96 Pulse Rate [Pulse Oximeter] 107 H Respiratory Rate 16 16 Blood Pressure 120/80 Blood Pressure [Le ft Arm] Blood Pressure [Ri ght Upper Arm] 127/81 Pulse Oximetry 99 99 97 Oxygen Delivery Me thod Room Air Room Air Room Air Fraction of Inspir ed Oxygen 12/18/22 22:30 12/18/22 22:31 12/18/22 22:45 Temperature Pulse Rate 96 95 93 Pulse Rate [Pulse Oximeter] Respiratory Rate Blood Pressure 138/71 Blood Pressure [Le ft Arm] Blood Pressure [Ri ght Upper Arm] Pulse Oximetry 97 97 96 Oxygen Delivery Me thod Fraction of Inspir ed Oxygen 12/18/22 23:54 12/19/22 00:00 12/19/22 00:31 Temperature Pulse Rate 107 H 97 Pulse Rate [Pulse Oximeter] Respiratory Rate Blood Pressure 117/69 Blood Pressure [Le ft Arm] Blood Pressure [Ri ght Upper Arm] Pulse Oximetry 99 97 Oxygen Delivery Me thod Fraction of Inspir ed Oxygen 12/19/22 01:00 CDT 12/19/22 01:28 CDT 12/19/22 01:03 SENIOR TECHNICAL ANALYST Temperature 98.1 F 98.2 F Pulse Rate 94 Pulse Rate [Pulse Oximeter] 95 Respiratory Rate 16 18 Blood Pressure 108/55 L Blood Pressure [Le ft Arm] 165/78 H Blood Pressure [Ri ght Upper Arm] Pulse Oximetry 98 100 Oxygen Delivery Me thod Room Air Room Air Fraction of Inspir ed Oxygen 12/19/22 01:03 SENIOR TECHNICAL ANALYST 12/19/22 07:00 12/19/22 10:13 Temperature Pulse Rate 92 Pulse Rate [Pulse Oximeter] 111 H Respiratory Rate 16 16 16 Blood Pressure 159/78 H Blood Pressure [Le ft Arm] Blood Pressure [Ri ght Upper Arm] Pulse Oximetry 100 99 Oxygen Delivery Me thod Room Air Nasal Cannula Fraction of Inspir ed Oxygen 2 12/19/22 10:17 12/19/22 10:20 12/19/22 10:22 Temperature Pulse Rate 95 92 95 Pulse Rate [Pulse Oximeter] Respiratory Rate 16 16 16 Blood Pressure 144/67 H 130/72 Blood Pressure [Le ft Arm] Blood Pressure [Ri ght Upper Arm] Pulse Oximetry 97 96 99 Oxygen Delivery Me thod Nasal Cannula Nasal Cannula Fraction of Inspir ed Oxygen 2 12/19/22 10:25 12/19/22 10:30 Temperature Pulse Rate 92 95 Pulse Rate [Pulse Oximeter] Respiratory Rate 16 16 Blood Pressure 131/67 115/72 Blood Pressure [Le ft Arm] Blood Pressure [Ri ght Upper Arm] Pulse Oximetry 92 96 Oxygen Delivery Me thod Room Air Room Air Fraction of Inspir ed Oxygen DS: Data Data Completed and Pending Labs on day of discharge: Labs from last 24 hours 12/18/22 21:45 WBC 12.56 H RBC 4.74 Hgb 13.9 Hct 40.3 MCV 85 MCH 29 MCHC 35 RDW Coeff of Brendan 12.7 Plt Count 240 Neut % (Auto) 79.1 H Lymph % (Auto) 11.5 L [place] % (Auto) 7.7 Eos % (Auto) 0.6 Baso % (Auto) 0.3 Neut # (Auto) 9.90 H Lymph # (Auto) 1.40 [place] # (Auto) 1.00 H Eos # (Auto) 0.10 Baso # (Auto) 0.00 Abs Immat Gran (auto) 0.10 Imm/Tot Granulo (auto) 0.8 Sodium 138 Potassium 4.7 Chloride 101 Carbon Dioxide 28 Anion Gap 9 BUN 27 Creatinine 0.9 Estimated Creat Clear 76.74 Estimated GFR 100 Glucose 144 H Lactate 1.6 Calcium 9.9 Total Bilirubin 0.8 Direct Bilirubin 0.0 AST 41 H ALT 27 Alkaline Phosphatase 104 C-Reactive Protein 3.7 H Total Protein 7.7 Albumin 4.3 Lipase 45 Urine Color Yellow Urine Appearance Clear Urine pH 5.5 Ur Specific Haw[place]orn 1.020 Urine Protein 3+ A Urine Glucose (UA) 2+ A Urine Ketones Negative Urine Blood 1+ A Urine Nitrite Negative Urine Bilirubin Negative Urine Urobilinogen 0.2 Ur Leukocyte Esterase Negative Urine RBC 5-10 A Urine WBC 0-2 Ur Squamous Epith Cells Few Urine Bacteria None Ethyl Alcohol < 0.01 L SARS-CoV-2 (PCR) Negative SARS-CoV-2 Influenza Type A (PCR) Negative PCR FLU A Influenza Type B (PCR) Negative PCR FLU B RSV (PCR) Negative PCR RSV Discharge Plan Discharge Disposition: Home, Self-Care Discharging Surgeon: Cara Richmond Follow-Up Appointment: 2 week follow up, NF Prescriptions: New senna 8.6 mg capsule 8.6 mg PO DAILY PRN (Reason: constipation) Qty: 90 0RF hydrocodone-acetaminophen 5-325 mg tablet 1 tab PO Q6H PRN (Reason: pain) Qty: 10 0RF Continued polyethylene glycol 3350 [Miralax] 17 gram/dose powder 17 g PO DAILY PRN Humulin N NPH U-100 Insulin 100 unit/mL suspension 20 unit subcut BID metformin 1,000 mg tablet 1,000 mg PO BIDWMEAL lisinopril 20 mg tablet 20 mg PO DAILY glyburide 5 mg tablet 10 mg PO BID Activity Level: No strenuous activity Activity Detail: Activity as tolerated. Avoid strenuous activity. No lifting greater than 20 lb for 2 weeks. Discharge Diet: Regular Patient Instructions: Hydrocodone/Acetaminophen (By mouth), Senna (By mouth), Surgical Site Infections (DC), General Anesthesia (DC), Laparoscopic Appendectomy (DC), Post-Operative Instructions: Appendectomy Additional Instructions: You were prescribed a narcotic pain medication. In addition you may supplement with Tylenol and/or ibuprofen. Be sure to not exceed greater than 4 g of Tylenol in a 24 hour period. While on narcotic pain medicine please take stool softeners. A prescription of stool softeners has been sent to the pharmacy. Stop if having greater than 2 stools per day. Okay to shower starting tomorrow. Do not soak in a bath for 2 weeks. Allow Steri-Strips to fall off on their own. Forms: Work/School Release Follow-up: Cara Richmond MD [Staff Physician] - 12/30/22 2:00 pm ([facility] for postoperative care.) Magdaleno Brady MD [Staff Physician] - Discharge Orders: Discharge Order (Routine); Ordered 12/19/22 Ordered By: Cara Richmond
[2022-12-19] MEDS: INSULIN ASPART 100 UNIT/ML SUBCUT (12:32)
--- NOTE | 2022-12-19 15:25 | PC.NURSE ---
Nursing Care Hours: [id number] Pt this shift calm and cooperative, alert and oriented. C/o abdomen pain 4/10 prior to surgery. After surgery, rated 0/10 with each assessment. As pt was getting out of bed for discharge, rated pain 6/10, but will last picker the pain medication on the way home and take as needed. Pt tolerating regular diet, drinking and voiding. Walk wiggins x1. No passing gas yet, BS hypoactive. Denies nausea. IV removed for discharge. Dairy Grazer used for pre and post op teaching as well as discharge teaching. Pt states he understands and has no further questions. Louis eli CDI. VSS through recovery. pt ambulated off the unit with friend, in stable condition.
--- NOTE | 2022-12-21 14:48 | SUR.PHASEI ---
End time and verification of PACU documentation done by this nurse based on conversation with Tanja Ramey who was on the procedure. Nurse documenting in PACU is no longer at this hospital as staff member to complete this documentation. Isaak Henderson RN
== END 2022-12-19 15:22 | disposition home or self-care (01) ==
LOC: ED 12-19 01:07 → SS 12-19 01:44 → MEDSURG 12-19 01:45
PROVIDERS: Emergency Provider Emergency Medicine; Visit Provider Surgery
PROC: 0DTJ4ZZ Resection of Appendix, Percutaneous Endoscopic Approach (ICD-10-PCS; CPT 44970; principal; 2022-12-19 09:00)
DX: K35.80 Unspecified acute appendicitis (principal); I10 Essential (primary) hypertension; E11.9 Type 2 diabetes mellitus without complications
CPT/HCPCS: 44970; 00840; 36415; 74177; 80048; 80076; 81001; 82077; 82962; 83605; 83690; 85025; 86140; 87631; 88304; 93005; 95992; 99140; 99284; 99285; J0330; J0665; J1100; J1335; J1885; J2060; J2250; J2371; J2405; J2543; J2704; J2710; J3010; J7030; J7120; Q9967

== ENCOUNTER 2023-03-30 16:54 | Emergency (ER) | payer MEDICAID, SELFPAY ==
[2023-03-30 17:13] VITALS: BP 158/93; PULSE 90; RESP 18; TEMP 36.4; O2SAT 100; BMI 30.9
--- NOTE | 2023-03-30 17:48 | ED_ITS ---
HPI - Headache General Chief Complaint: Headache/Migraine Stated Complaint: head pain Time Seen by Provider: 03/30/23 16:59 History of Present Illness HPI Narrative: This 57-year-old male is Syriac-speaking and understands little bit of anguish. 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 He reports a headache with some neck tightness and discomfort over the past week. He does not have any recent injury event or strenuous activity. He states that he typically does not get headaches. He does not report any neurologic deficits or signs of infection. He has not had any fevers. Related Data Home Medications Medication Instructions Recorded Confirmed Insulin See Rx Instructions .Route .COMPLEX 10/03/21 03/30/23 metformin 1,000 mg tablet 1,000 mg 10/03/21 Previous Rx's Medication Instructions Recorded cyclobenzaprine 10 mg tablet 10 mg PO TID #15 tabs 03/30/23 ketorolac 10 mg tablet 10 mg PO Q8H 5 days #15 tabs 03/30/23 Allergies Allergy/AdvReac Type Severity Reaction Status Date / Time No Known Drug Allergies Allergy Verified 03/30/23 17:12 Review of Systems Status of ROS: Reports: 10 or more systems reviewed and unremarkable except as noted in History and below Narrative: Constitutional: No fevers, no weight gain or loss. Eyes: No discharge. No vision changes. HENT: No congestion, no sore throat, no ear pain. Cardiovascular: No chest pain, no palpitations. Respiratory: No shortness of breath, no wheezes, no cough. Gastrointestinal: No abdominal pain, no vomiting, no diarrhea. Genitourinary: No dysuria, no hematuria. Musculoskeletal: Normal range of motion. Skin: No rashes, no pruritis. Neurological: No dizziness, weakness, sensory change, speech change. All other systems reviewed and are negative. PFSH PFS Social History Smoking Status: Smoker, status unknown Do you use any of these nicotine containing products: None How often do you have a drink containing alcohol: never AUDIT-C Alcohol total score: 0 Non-prescribed substance use: denies use Exam Narrative: Exam Narrative: Constitutional: Well-developed, well-nourished, no acute distress. HEENT: Normocephalic, atraumatic. Neck: Normal range of motion. Nontender. Supple. Heart: Intact distal pulses. Lungs: No chest discomfort. No wheezes, rhonchi, or rales. Abdomen: Nontender. Back: Normal range of motion. Extremities: Normal range of motion. No injury. Skin: Intact. No rash. Warm. No erythema or pallor. Neurologic: No altered sensation. No weakness. Alert and oriented. Psychiatric: No suicidality. No anxiety or depression. No insomnia. Nursing notes and vitals signs are reviewed. Const: Vital Signs, click to edit/add: Vital Signs - 24 hr 03/30/23 17:13 Temperature 97.5 F L Pulse Rate [Pulse Oximeter] 90 Respiratory Rate 18 Blood Pressure [Ri t Upper Arm] 158/93 H Pulse Oximetry 100 Oxygen Delivery Me thod Room Air Course Vital Signs Vital signs: Initial Vital Signs Temperature 97.5 F L 03/30/23 17:13 Temperature Source Temporal Artery Scan 03/30/23 17:13 Pulse Rate 90 03/30/23 17:13 Pulse Rhythm Regular 03/30/23 17:13 Pulse Strength 3+ Normal 03/30/23 17:13 Respiratory Rate 18 03/30/23 17:13 Blood Pressure 158/93 H 03/30/23 17:13 Blood Pressure Mean 114 H 03/30/23 17:13 Blood Pressure Position Semi-Fowlers 03/30/23 17:13 Pulse Oximetry 100 03/30/23 17:13 Oxygen Delivery Method Room Air 03/30/23 17:13 Vital Signs Temperature 97.5 F L 03/30/23 17:13 Pulse Rate 90 03/30/23 17:13 Respiratory Rate 18 03/30/23 17:13 Blood Pressure 158/93 H 03/30/23 17:13 Pulse Oximetry 100 03/30/23 17:13 Oxygen Delivery Method Room Air 03/30/23 17:13 Temperature 97.5 F L 03/30/23 17:13 Pulse Rate 90 03/30/23 17:13 Respiratory Rate 18 03/30/23 17:13 Blood Pressure 158/93 H 03/30/23 17:13 Pulse Oximetry 100 03/30/23 17:13 Oxygen Delivery Method Room Air 03/30/23 17:13 MDM - Headache MDM Narrative Medical decision making narrative: This patient comes in reporting headache over the past week or so. He has taken a couple Tylenol tablets without much relief. He arrives with normal vital signs except his blood pressure is a bit elevated. He is not showing any signs of neurologic deficit or of infection. I did discuss lab and imaging options with him. He is okay to be discharged home and did receive a prescription for Toradol and Flexeril. Discharge Plan Discharge Clinical Impression: Headache Patient Disposition: Home, Self-Care Condition: Stable Additional Instructions: Take medication as prescribed. Follow up with MD or return if worsening. Prescriptions: New cyclobenzaprine 10 mg tablet 10 mg PO TID Qty: 15 0RF ketorolac 10 mg tablet 10 mg PO Q8H 5 Days Qty: 15 0RF No Action metformin 1,000 mg tablet 1,000 mg Patient Comments: TAKE ONE TABLET BY MOUTH TWICE A DAY WITH MORNING AND EVENING MEALS Insulin See Rx Instructions .ROUTE .COMPLEX Rx Instructions: 10units each AM; 15 units at noc; Follow Up/Referrals: Yandel Greer MD [Primary Care Provider] - Stand Alone Forms: [employer] Info Instructions
== END 2023-03-30 18:35 | disposition home or self-care (01) ==
PROVIDERS: Emergency Provider Emergency Medicine Emergency Medical Services
DX: R51.9 Headache, unspecified (principal)
CPT/HCPCS: 99283; 99284

== ENCOUNTER 2023-04-21 20:04 | Emergency (ER) | payer OTHER, MEDICAID, SELFPAY ==
[2023-04-21 20:09] VITALS: BP 151/83; PULSE 99; RESP 18; TEMP 36.1; O2SAT 97
--- NOTE | 2023-04-21 20:28 | CT_ITS ---
Patient: CARLY RICO Facility:?[facility] R[facility] Patient ID:?[id number] Site Patient ID:?[id number]. Site :?[id number] Study:?CT-Head WITHOUT-04/21/2023 8:48:36 PM Ordering Physician:JESUS Final Report: INDICATION: Hit head at work, neck pain. COMPARISON: None. TECHNIQUE: CT of the head without IV contrast. Coronal and sagittal reconstructions. FINDINGS: No intracranial hemorrhage, mass effect, or evidence of acute infarct. No midline shift. No abnormal extra-axial fluid collections. Mild generalized cerebral and cerebellar volume loss. Ventricular caliber is within normal limits. Orbits and extraocular muscles are symmetric. The visualized paranasal sinuses and mastoid air cells are clear. Soft tissues are unremarkable. No acute fracture identified. IMPRESSION: No acute intracranial findings. Please note that all CT scans at this facility use dose modulation, iterative reconstruction, and/or weight-based dosing when appropriate to reduce radiation dose to as low as reasonably achievable. Dictated by Kourtney Barrera MD @ 04/21/2023 9:04:03 PM Signed by:?Kourtney Barrera MD @04/21/2023 9:04:03 PM (Electronic Signature)
--- NOTE | 2023-04-21 20:28 | CT_ITS ---
Patient: CARLY RICO Facility:?[facility] RIS Patient ID:?[id number] Site Patient ID:?[id number]. Site :?[id number] Study:?CT-Spine Cervical WITHOUT-04/21/2023 8:49:03 PM Ordering Physician:JESUS Final Report: INDICATION: Hit head at work, neck pain. COMPARISON: None. TECHNIQUE: CT of the cervical spine without IV contrast. Coronal and sagittal reconstructions. FINDINGS: No acute fracture or traumatic malalignment of the cervical spine. Vertebral body heights are well maintained. Normal vertebral body alignment. Straightening of the normal cervical lordosis. Endplate spurring and severe disc space narrowing at C6-C7. Mild spinal canal stenosis at C6-C7. No prevertebral soft tissue swelling. Visualized intracranial contents are unremarkable. The thyroid gland is normal in appearance. The mastoid air cells are clear. The lung apices are clear. IMPRESSION: 1. No acute fracture or traumatic malalignment of the cervical spine. 2. 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 Please note that all CT scans at this facility use dose modulation, iterative reconstruction, and/or weight-based dosing when appropriate to reduce radiation dose to as low as reasonably achievable. Dictated by Kourtney Barrera MD @ 04/21/2023 9:12:41 PM Signed by:?Kourtney Barrera MD @04/21/2023 9:12:41 PM (Electronic Signature)
--- NOTE | 2023-04-21 20:43 | ED_ITS ---
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 It shortly prior to arrival he was at work when he hit his head against a steel line that is about at head level. He says it swung toward him and hit him in the head. Since then he is also developing midline neck pain. States his some dizziness associated with it but denies numbness or weakness. Denies being on any blood thinners. No previous injuries. Denies vision changes, lightheadedness, chest pain, shortness of breath. No other concerns noted at this time. Has not taken anything yet for pain. States most the pain is on the parietal region on the left side of his head any feels is swelling there. Related Data Home Medications Medication Instructions Recorded Confirmed glyburide 5 mg tablet 10 mg PO BID 12/19/22 12/19/22 insulin NPH isoph U-100 human 100 20 unit subcut BID 12/19/22 12/19/22 unit/mL subcutaneous suspension (Humulin N NPH U-100 Insulin (isophane susp)) lisinopril 20 mg tablet 20 mg PO DAILY 12/19/22 12/19/22 metformin 1,000 mg tablet 1,000 mg PO BIDWMEAL 12/19/22 12/19/22 polyethylene glycol 3350 17 17 g PO DAILY PRN 12/19/22 12/19/22 gram/dose oral powder (Miralax) Previous Rx's Medication Instructions Recorded sennosides 8.6 mg capsule (senna) 8.6 mg PO DAILY PRN constipation 12/19/22 #90 caps Allergies Allergy/AdvReac Type Severity Reaction Status Date / Time No Known Drug Allergies Allergy Verified 12/30/22 14:18 Review of Systems Status of ROS: Reports: 6 or more systems reviewed and unremarkable except as noted in History and below [facility] Medical History Psoriasis ?L40.9 - Psoriasis, unspecified (ICD-10) Diabetes ?E11.9 - Type 2 diabetes mellitus without complications (ICD-10) Hypertension ?I10 - Essential (primary) hypertension (ICD-10) Social History What is your current living situation?: I presently have a place to live Problems where you live: no known problems Problems where you live details: no known problems In the past 12 months, utilities in danger of being shut off: yes In past 12 months, lack of transportation kept you from medical appts, meetings, work, or getting things needed for daily living: no In the past 12 mos, have been you worried that your food would run out before you had money to buy more?: sometimes true In the past 12 mos, the food you bought just didn't last and you didn't have mo farrukh to buy more?: sometimes true Smoking Status: Never smoker Second hand tobacco smoke exposure: No How often do you have a drink containing alcohol: never AUDIT-C Alcohol total score: 0 Non-prescribed substance use: denies use Caffeine: Yes (Coffee) How often does anyone, including family, friends and others, physically hurt you : never How often does anyone, including family, friends and others, insult or talk down to you: never How often does anyone, including family, friends and others, threaten you with harm: never How often does anyone, including family, friends and others, scream or curse at you: never Exam Narrative: Exam Narrative: Const: Well-nourished, Well-developed, in mild distress Eyes: PERRL, no conjunctival injection, and symmetrical lids HENT: Atraumatic external nose and ears. Moist mucous membranes. Tenderness to patient's left parietal region Neck: Symmetric, trachea midline, No thyromegaly. CVS: RRR, No murmurs or gallops. Peripheral pulses 2+ and equal in all extremities RESP: Unlabored respiratory effort. Clear to auscultation bilaterally. GI: Nontender/Nondistended, No rebound or guarding. MSK:Extremities w/o deformity, Normal Active ROM, midline cervical spine tenderness more around the C3-C4 region Skin: Warm, Dry. No rashes or lesions. Neuro: Normal Muscle tone, No focal neurological deficits. Psych: Awake, Alert, & Oriented x3. Appropriate mood and affect. Const: Vital Signs, click to edit/add: Vital Signs - 24 hr 04/21/23 20:09 04/21/23 21:23 Temperature 97 F L Pulse Rate [Pulse Oximeter] 99 94 Respiratory Rate 18 18 Blood Pressure [Ri ght Upper Arm] 151/83 H 146/76 H Pulse Oximetry 97 97 Oxygen Delivery Me thod Room Air Room Air Course Vital Signs Vital signs: Initial Vital Signs Temperature 97 F L 04/21/23 20:09 Temperature Source Temporal Artery Scan 04/21/23 20:09 Pulse Rate 99 04/21/23 20:09 Respiratory Rate 18 04/21/23 20:09 Blood Pressure 151/83 H 04/21/23 20:09 Blood Pressure Mean 105 04/21/23 20:09 Blood Pressure Position Sitting 04/21/23 20:09 Pulse Oximetry 97 04/21/23 20:09 Oxygen Delivery Method Room Air 04/21/23 20:09 Vital Signs Temperature 97 F L 04/21/23 20:09 Pulse Rate 99 04/21/23 20:09 Respiratory Rate 18 04/21/23 20:09 Blood Pressure 151/83 H 04/21/23 20:09 Pulse Oximetry 97 04/21/23 20:09 Oxygen Delivery Method Room Air 04/21/23 20:09 Temperature 97 F L 04/21/23 20:09 Pulse Rate 94 04/21/23 21:23 Respiratory Rate 18 04/21/23 21:23 Blood Pressure 146/76 H 04/21/23 21:23 Pulse Oximetry 97 04/21/23 21:23 Oxygen Delivery Method Room Air 04/21/23 21:23 Medications Administered Medications: Discontinued Medications Generic Name Dose Route Start Last Admin Trade Name Freq PRN Reason Stop Dose Admin Ketorolac Tromethamine 30 mg 04/21/23 20:28 04/21/23 21:30 Ketorolac 30 Mg/Ml Inj IM 04/21/23 20:29 30 mg ONCE ONE Administration MDM - Head Injury MDM Narrative Medical decision making narrative: Patient is a 58-year-old male presenting for headache and neck pain after hitting his head at work. With the midline neck tenderness we will do cervical spine CT on with a head CT. Patient given Toradol for pain. Imaging returned showing no concerning abnormalities. It was reviewed by myself and the radiologist. He is otherwise doing well can be discharged home. Nursing staff did do a point of care blood sugar and was elevated at 363. He is not symptomatic from this right now and does not require treatment in the emergency department. Imaging Data CT scan - head: Radiologist's impression: No acute intracranial findings. Please note that all CT scans at this facility use dose modulation, iterative reconstruction, and/or weight-based dosing when appropriate to reduce radiation dose to as low as reasonably achievable. Dictated by Kourtney Barrera MD @ 04/21/2023 9:04:[address] scan cervical spine: Radiologist's impression: 1. No acute fracture or traumatic malalignment of the cervical spine. 2. 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 Please note that all CT scans at this facility use dose modulation, iterative reconstruction, and/or weight-based dosing when appropriate to reduce radiation dose to as low as reasonably achievable. Dictated by Kourtney Barrera MD @ 04/21/2023 9:12:41 PM Discharge Plan Discharge Clinical Impression: Closed head injury Qualifiers: Encounter type: initial encounter Qualified Code(s): S09.90XA - Unspecified injury of head, initial encounter Patient Disposition: Home, Self-Care Condition: Stable Instructions: Head Injury (DC) Additional Instructions: Take Tylenol and ibuprofen for pain. Return to emergency department for new or worsening symptoms. There is no signs of fractures or internal brain injury on your imaging. Prescriptions: No Action polyethylene glycol 3350 [Miralax] 17 gram/dose powder 17 g PO DAILY PRN Humulin N NPH U-100 Insulin 100 unit/mL suspension 20 unit subcut BID metformin 1,000 mg tablet 1,000 mg PO BIDWMEAL lisinopril 20 mg tablet 20 mg PO DAILY glyburide 5 mg tablet 10 mg PO BID senna 8.6 mg capsule 8.6 mg PO DAILY PRN (Reason: constipation) Qty: 90 0RF Follow Up/Referrals: Provider,Not a Local [Referring] - Stand Alone Forms: [employer] Info Instructions
[2023-04-21 21:23] VITALS: BP 146/76; PULSE 94; RESP 18; O2SAT 97
[2023-04-21] MEDS: KETOROLAC 30 MG/ML inj IM (21:30)
== END 2023-04-21 21:57 | disposition home or self-care (01) ==
PROVIDERS: Emergency Provider Student in an Organized Health Care Education/Training Program; PCP Family Medicine
DX: S09.90XA Unspecified injury of head, initial encounter (principal); R51.9 Headache, unspecified; M54.2 Cervicalgia; W22.8XXA Striking against or struck by other objects, initial encounter; Y99.0 Civilian activity done for income or pay
CPT/HCPCS: 70450; 72125; 96372; 99282; 99283; J1885

== ENCOUNTER 2023-05-12 15:59 | Emergency (ER) | payer OTHER, MEDICAID, SELFPAY ==
[2023-05-12 16:20] VITALS: BP 116/79; PULSE 99; RESP 16; TEMP 36.3; O2SAT 98; BMI 30.9
--- NOTE | 2023-05-12 16:50 | ED_ITS ---
HPI - General Adult General Chief complaint: Head Injury/Pain Stated complaint: head pain Time Seen by Provider: 05/12/23 16:34 History of Present Illness HPI narrative: This patient is a 58-year-old male who comes in because of persistent headache after head injury that occurred at work almost 3 weeks ago. He did have brief loss of consciousness at that time. He did come in for evaluation and a CT scan of the head was obtained with no acute findings. He comes in today because he states that he is return to work and they are making him do heavy lifting and activities that he feels he cannot tolerate. He has been taking ibuprofen and Tylenol without sufficient relief of his headache. He does not report any neurologic deficits. [employer] services are used in this encounter. Related Data Home Medications Medication Instructions Recorded Confirmed glyburide 5 mg tablet 10 mg PO BID 12/19/22 12/19/22 insulin NPH isoph U-100 human 100 20 unit subcut BID 12/19/22 12/19/22 unit/mL subcutaneous suspension (Humulin N NPH U-100 Insulin (isophane susp)) lisinopril 20 mg tablet 20 mg PO DAILY 12/19/22 12/19/22 metformin 1,000 mg tablet 1,000 mg PO BIDWMEAL 12/19/22 12/19/22 polyethylene glycol 3350 17 17 g PO DAILY PRN 12/19/22 12/19/22 gram/dose oral powder (Miralax) Previous Rx's Medication Instructions Recorded sennosides 8.6 mg capsule (senna) 8.6 mg PO DAILY PRN constipation 12/19/22 #90 caps cyclobenzaprine 10 mg tablet 10 mg PO TID #15 tabs 05/12/23 ketorolac 10 mg tablet 10 mg PO Q8H 5 days #15 tabs 05/12/23 Allergies Allergy/AdvReac Type Severity Reaction Status Date / Time No Known Drug Allergies Allergy Verified 12/30/22 14:18 Review of Systems Status of ROS: Reports: 10 or more systems reviewed and unremarkable except as noted in History and below Narrative: Constitutional: No fevers, no weight gain or loss. Eyes: No discharge. No vision changes. HENT: No congestion, no sore throat, no ear pain. Cardiovascular: No chest pain, no palpitations. Respiratory: No shortness of breath, no wheezes, no cough. Gastrointestinal: No abdominal pain, no vomiting, no diarrhea. Genitourinary: No dysuria, no hematuria. Musculoskeletal: Normal range of motion. Skin: No rashes, no pruritis. Neurological: No dizziness, weakness, sensory change, speech change. Endo/Heme/Allergies: No bruising or bleeding. No polydipsia. Pysch: no suicidality, no anxiety, no insomnia. All other systems reviewed and are negative. PFSH PFS Medical History Psoriasis ?L40.9 - Psoriasis, unspecified (ICD-10) Diabetes ?E11.9 - Type 2 diabetes mellitus without complications (ICD-10) Hypertension ?I10 - Essential (primary) hypertension (ICD-10) Social History What is your current living situation?: I presently have a place to live Problems where you live: no known problems Problems where you live details: no known problems In the past 12 months, utilities in danger of being shut off: yes In past 12 months, lack of transportation kept you from medical appts, meetings, work, or getting things needed for daily living: no In the past 12 mos, have been you worried that your food would run out before you had money to buy more?: sometimes true In the past 12 mos, the food you bought just didn't last and you didn't have money to buy more?: sometimes true Smoking Status: Never smoker Second hand tobacco smoke exposure: No How often do you have a drink containing alcohol: never AUDIT-C Alcohol total score: 0 Non-prescribed substance use: denies use Caffeine: Yes (Coffee) How often does anyone, including family, friends and others, physically hurt you : never How often does anyone, including family, friends and others, insult or talk down to you: never How often does anyone, including family, friends and others, threaten you with harm: never How often does anyone, including family, friends and others, scream or curse at you: never Exam Narrative: Exam Narrative: Constitutional: Well-developed, well-nourished, no acute distress. HEENT: Normocephalic, atraumatic. Patient reports a headache. Neck: Normal range of motion. Supple. He reports some diffuse discomfort in his neck related to the headache. No midline tenderness. Heart: Intact distal pulses. Lungs: No chest discomfort. No wheezes, rhonchi, or rales. Abdomen: Nontender. Back: Normal range of motion. Extremities: Normal range of motion. No injury. Skin: Intact. No rash. Warm. No erythema or pallor. Neurologic: No altered sensation. No weakness. Alert and oriented. Psychiatric: No suicidality. No anxiety or depression. No insomnia. Nursing notes and vitals signs are reviewed. Const: Vital Signs, click to edit/add: Vital Signs - 24 hr 05/12/23 16:20 Temperature 97.4 F L Pulse Rate [Pulse Oximeter] 99 Respiratory Rate 16 Blood Pressure [Ri ght Upper Arm] 116/79 Pulse Oximetry 98 Oxygen Delivery Me thod Room Air Course Vital Signs Vital signs: Initial Vital Signs Temperature 97.4 F L 05/12/23 16:20 Temperature Source Temporal Artery Scan 05/12/23 16:20 Pulse Rate 99 05/12/23 16:20 Respiratory Rate 16 05/12/23 16:20 Blood Pressure 116/79 05/12/23 16:20 Blood Pressure Mean 91 05/12/23 16:20 Blood Pressure Position Sitting 05/12/23 16:20 Pulse Oximetry 98 05/12/23 16:20 Oxygen Delivery Method Room Air 05/12/23 16:20 Vital Signs Temperature 97.4 F L 05/12/23 16:20 Pulse Rate 99 05/12/23 16:20 Respiratory Rate 16 05/12/23 16:20 Blood Pressure 116/79 05/12/23 16:20 Pulse Oximetry 98 05/12/23 16:20 Oxygen Delivery Method Room Air 05/12/23 16:20 Temperature 97.4 F L 05/12/23 16:20 Pulse Rate 99 05/12/23 16:20 Respiratory Rate 16 05/12/23 16:20 Blood Pressure 116/79 05/12/23 16:20 Pulse Oximetry 98 05/12/23 16:20 Oxygen Delivery Method Room Air 05/12/23 16:20 Medical Decision Making MDM Narrative Medical decision making narrative: This patient comes in with ongoing symptoms after head injury that occurred at work a almost 3 weeks ago. He has filed a claim with workmen's compensation and this is in process currently. He comes in because he feels that he cannot continue with a heavy workload that is required of him at work. He does report headache and some mild neck pain. He did have a CT scan after this injury occur red with negative results. He is not showing any sign of neurologic deficit. The patient did received prescriptions for Toradol and Flexeril and I did provide a return to work note. Discharge Plan Discharge Clinical Impression: Post concussion syndrome Patient Disposition: Home, Self-Care Condition: Stable Additional Instructions: Okay to return to work but to avoid lifting greater than 20 lb for 3-5 days then increase activity as tolerated. Take medication as needed and directed. Follow up with MD or return if worsening. Prescriptions: New cyclobenzaprine 10 mg tablet 10 mg PO TID Qty: 15 0RF ketorolac 10 mg tablet 10 mg PO Q8H 5 Days Qty: 15 0RF No Action polyethylene glycol 3350 [Miralax] 17 gram/dose powder 17 g PO DAILY PRN Humulin N NPH U-100 Insulin 100 unit/mL suspension 20 unit subcut BID metformin 1,000 mg tablet 1,000 mg PO BIDWMEAL lisinopril 20 mg tablet 20 mg PO DAILY glyburide 5 mg tablet 10 mg PO BID senna 8.6 mg capsule 8.6 mg PO DAILY PRN (Reason: constipation) Qty: 90 0RF Follow Up/Referrals: Richard Mejía MD [Primary Care Provider] - Stand Alone Forms: [employer] Info Instructions
[2023-05-12 17:22] VITALS: BP 116/79; PULSE 99; RESP 16; TEMP 36.3
== END 2023-05-12 17:23 | disposition home or self-care (01) ==
PROVIDERS: Emergency Provider Emergency Medicine Emergency Medical Services; PCP Family Medicine
DX: F07.81 Postconcussional syndrome (principal)
CPT/HCPCS: 99283; 99284

== ENCOUNTER 2023-06-08 15:13 | Outpatient (RCR) | payer OTHER, MEDICAID, SELFPAY | END 2023-10-06 23:59 | disposition home or self-care (01) | PROVIDERS: PCP Family Medicine; Visit Provider Physician Assistant | DX: S09.90XA Unspecified injury of head, initial encounter (principal); M54.2 Cervicalgia; R42 Dizziness and giddiness; R51.9 Headache, unspecified; M62.89 Other specified disorders of muscle; Z51.89 Encounter for other specified aftercare | CPT/HCPCS: 97140; 97161; T1013 ==

== ENCOUNTER 2023-06-13 19:30 | Emergency (ER) | payer MEDICAID, SELFPAY ==
[2023-06-13 19:36] VITALS: BP 195/100; PULSE 91; RESP 20; TEMP 37.6; O2SAT 100; BMI 45.1
--- NOTE | 2023-06-13 19:50 | ED.GENADULT ---
HPI - General Adult General Chief complaint: Cough Stated complaint: Cough, blurred vision Time Seen by Provider: 06/13/23 19:42 History of Present Illness HPI narrative: This 58-year-old male comes in reporting cough for the past 3 days. He also has some blurry vision due to matting in both eyes typical of conjunctivitis. He does not report any fever or shortness of breath. He does not report any ear pain. He is otherwise in good normal health for him. Related Data Home Medications Medication Instructions Recorded Confirmed Insulin See Rx Instructions .Route .COMPLEX 10/03/21 06/13/23 metformin 1,000 mg tablet 1,000 mg 10/03/21 glyburide 5 mg tablet 10 mg PO BID 12/19/22 06/13/23 insulin NPH isoph U-100 human 100 20 unit subcut BID 12/19/22 06/13/23 unit/mL subcutaneous suspension (Humulin N NPH U-100 Insulin (isophane susp)) lisinopril 20 mg tablet 20 mg PO DAILY 12/19/22 06/13/23 metformin 1,000 mg tablet 1,000 mg PO BIDWMEAL 12/19/22 12/19/22 polyethylene glycol 3350 17 17 g PO DAILY PRN 12/19/22 06/13/23 gram/dose oral powder (Miralax) aspirin 81 mg tablet,delayed 81 mg PO DAILY diabetes mellitus 06/13/23 06/13/23 release clotrimazole-betamethasone 1 applic topical 06/13/23 %-0.05 % topical cream Previous Rx's Medication Instructions Recorded sennosides 8.6 mg capsule (senna) 8.6 mg PO DAILY PRN constipation 12/19/22 #90 caps cyclobenzaprine 10 mg tablet 10 mg PO TID #15 tabs 03/30/23 ketorolac 10 mg tablet 10 mg PO Q8H 5 days #15 tabs 03/30/23 cyclobenzaprine 10 mg tablet 10 mg PO TID #15 tabs 05/12/23 ketorolac 10 mg tablet 10 mg PO Q8H 5 days #15 tabs 05/12/23 codeine 10 mg-guaifenesin 100 mg/5 10 ml PO Q4-6H PRN #200 mL 06/13/23 mL oral liquid polymyxin B sulfate 10,000 1 drp ophthalmic (eye) Q3H 7 days 06/13/23 unit-trimethoprim 1 mg/mL eye drops #10 mL Allergies Allergy/AdvReac Type Severity Reaction Status Date / Time No Known Drug Allergies Allergy Verified 06/13/23 19:39 Review of Systems Status of ROS: Reports: 10 or more systems reviewed and unremarkable except as noted in History and below Narrative: Constitutional: No fevers, no weight gain or loss. Eyes: Bilateral purulent discharge. HENT: No congestion, no sore throat, no ear pain. Cardiovascular: No chest pain, no palpitations. Respiratory: No shortness of breath, no wheezes. Frequent cough that is usually not productive. Gastrointestinal: No abdominal pain, no vomiting, no diarrhea. Genitourinary: No dysuria, no hematuria. Musculoskeletal: Normal range of motion. Skin: No rashes, no pruritis. Neurological: No dizziness, weakness, sensory change, speech change. Endo/Heme/Allergies: No bruising or bleeding. No polydipsia. Pysch: no suicidality, no anxiety, no insomnia. All other systems reviewed and are negative. [facility] Medical History Psoriasis ?L40.9 - Psoriasis, unspecified (ICD-10) Diabetes ?E11.9 - Type 2 diabetes mellitus without complications (ICD-10) Hypertension ?I10 - Essential (primary) hypertension (ICD-10) Social History (System 05/26/23 @ 11:08 by Shreya Crystal) What is your current living situation?: I presently have a place to live Problems where you live: no known problems Problems where you live details: no known problems In the past 12 months, utilities in danger of being shut off: yes In past 12 months, lack of transportation kept you from medical appts, meetings, work, or getting things needed for daily living: no In the past 12 mos, have been you worried that your food would run out before you had money to buy more?: sometimes true In the past 12 mos, the food you bought just didn't last and you didn't have money to buy more?: sometimes true Smoking Status: Never smoker Do you use any of these nicotine containing products: None Second hand tobacco smoke exposure: No How often do you have a drink containing alcohol: never AUDIT-C Alcohol total score: 0 Non-prescribed substance use: denies use Caffeine: Yes (Coffee) How often does anyone, including family, friends and others, physically hurt you: never How often does anyone, including family, friends and others, insult or talk down to you: never How often does anyone, including family, friends and others, threaten you with harm: never How often does anyone, including family, friends and others, scream or curse at you: never service: No Exam Narrative: Exam Narrative: Constitutional: Well-developed, well-nourished, no acute distress. HEENT: Normocephalic, atraumatic. Small amount of purulence along the eyelids of both eyes typical of conjunctivitis. Neck: Normal range of motion. Nontender. Supple. Heart: Regular. No murmurs. Normal rate. Intact distal pulses. Lungs: Clear to auscultation. No chest discomfort. No wheezes, rhonchi, or rales. Abdomen: Normal bowel sounds. Nontender. No rebound tenderness. Genitalia: Deferred. Back: No midline tenderness. Normal range of motion. Extremities: Normal range of motion. No injury. Skin: Intact. No rash. Warm. No erythema or pallor. Neurologic: No altered sensation. No weakness. Alert and oriented. Psychiatric: No suicidality. No anxiety or depression. No insomnia. Nursing notes and vitals signs are reviewed. Const: Vital Signs, click to edit/add: Vital Signs - 24 hr 06/13/23 19:36 Temperature 99.6 F Pulse Rate [Femora l] 91 Respiratory Rate 20 Blood Pressure [Ri ght Upper Arm] 195/100 H Pulse Oximetry 100 Oxygen Delivery Me thod Room Air Course Vital Signs Vital signs: Initial Vital Signs Temperature 99.6 F 06/13/23 19:36 Temperature Source Temporal Artery Scan 06/13/23 19:36 Pulse Rate 91 06/13/23 19:36 Respiratory Rate 20 06/13/23 19:36 Blood Pressure 195/100 H 06/13/23 19:36 Blood Pressure Mean 131 H 06/13/23 19:36 Pulse Oximetry 100 06/13/23 19:36 Oxygen Delivery Method Room Air 06/13/23 19:36 Vital Signs Temperature 99.6 F 06/13/23 19:36 Pulse Rate 91 04/29/24 19:36 Respiratory Rate 20 06/13/23 19:36 Blood Pressure 195/100 H 06/13/23 19:36 Pulse Oximetry 100 06/13/23 19:36 Oxygen Delivery Method Room Air 06/13/23 19:36 Temperature 99.6 F 06/13/23 19:36 Pulse Rate 91 06/13/23 19:36 Respiratory Rate 20 06/13/23 19:36 Blood Pressure 195/100 H 06/13/23 19:36 Pulse Oximetry 100 06/13/23 19:36 Oxygen Delivery Method Room Air 06/13/23 19:36 Medical Decision Making MDM Narrative Medical decision making narrative: This patient comes in reporting cough for the past 3 days along with some matting in both eyes. His vital signs are normal and exam is otherwise normal. I did discuss lab and imaging options with the patient and these were declined in a process of shared decision making. The patient did receive a prescription for Polytrim ophthalmic and Robitussin AC. Discharge Plan Discharge Clinical Impression: Acute upper respiratory infection, Conjunctivitis Patient Disposition: Home, Self-Care Condition: Stable Additional Instructions: Take medication as prescribed. Follow up with MD return if worsening. Prescriptions: New polymyxin B sulf-trimethoprim 10,000 unit- 1 mg/mL drops 1 drp ophthalmic (eye) Q3H 7 Days Qty: 10 0RF Rx Instructions: while awake; do not exceed 6 doses in 24 hours codeine-guaifenesin 10-100 mg/5 mL liquid 10 ml PO Q4-6H PRNQty: 200 0RF No Action cyclobenzaprine 10 mg tablet 10 mg PO TID Qty: 15 0RF ketorolac 10 mg tablet 10 mg PO Q8H 5 Days Qty: 15 0RF aspirin 81 mg tablet,delayed release (DR/EC) 81 mg PO DAILY clotrimazole-betamethasone 1-0.05 % cream topical metformin 1,000 mg tablet 1,000 mg Patient Comments: TAKE ONE TABLET BY MOUTH TWICE A DAY WITH MORNING AND EVENING MEALS Insulin See Rx Instructions .ROUTE .COMPLEX Rx Instructions: 10units each AM; 15 units at noc; polyethylene glycol 3350 [Miralax] 17 gram/dose powder 17 g PO DAILY PRN Humulin N NPH U-100 Insulin 100 unit/mL suspension 20 unit subcut BID metformin 1,000 mg tablet 1,000 mg PO BIDWMEAL lisinopril 20 mg tablet 20 mg PO DAILY glyburide 5 mg tablet 10 mg PO BID senna 8.6 mg capsule 8.6 mg PO DAILY PRN (Reason: constipation) Qty: 90 0RF cyclobenzaprine 10 mg tablet 10 mg PO TID Qty: 15 0RF ketorolac 10 mg tablet 10 mg PO Q8H 5 Days Qty: 15 0RF Follow Up/Referrals: Richard Mejía MD [Primary Care Provider] - Stand Alone [facility]
--- OUTSIDE RECORDS SUMMARY | 2023-06-13 20:03 | XMS_ITS | Clinical Summary ---
Author Name Unknown Organization [facility] Address [address] [place] [address] Care Team Providers Care Palm And Back Forger Name Role Phone Elsewhere, Pcp Primary Care Provider Unavailabl e Source Comments Patient records contain information from all sites at [facility]. For routine questions regarding patient records, call [phone] during business hours, M-F 8:00 AM - 5:00 PM Central Time. Record requests for emergency care only can be directed to [phone] at any time.[facility] Allergies No known active allergies Medications Medication Sig Dispensed Refills Start Date End Date Status aspirin 325 mg oral capsule Take 325 mg by mouth daily. 12/01/2006 Active blood sugar diagnostic (OneTouch Ultra Test) strips 1 strip by other route 3 (three) times a day. 08/10/2007 Active clobetasoL (TEMOVATE) 0.05 % ointment Apply 1 application topically 2 (two) times a day. 04/14/2017 Active fluocinonide (LIDEX) 0.05 % ointment Apply 1 application topically 2 (two) times a day. 04/20/2017 Active glyBURIDE (DIABETA) 5 mg tablet Take 10 mg by mouth 2 (two) times a day. 02/15/2017 Active insulin NPH 100 unit/mL injection Inject 20 Units under the skin 2 (two) times a day. 02/15/2017 Active lisinopriL (PRINIVIL,ZESTRIL) 20 mg tablet Take 20 mg by mouth daily. 10/21/2021 Active metFORMIN (GLUCOPHAGE) 1,000 mg tablet Take 1,000 mg by mouth 2 (two) times a day. 02/15/2017 Active clotrimazole-betamet hasone (LOTRISONE) 1-0.05 % cream APPLY TO THE AFFECTED TOPICALLY AND SURROUNDING AREAS OF SKIN 2 TIMES PER DAY IN THE MORNING AND EVENING FOR 2 WEEKS 07/09/2022 Active triamcinolone (KENALOG) 0.1 % cream APPLY A THIN LAYER TOPICALLY TO THE AFFECTED AREA(S) 2 TIMES PER DAY 07/09/2022 Active sucralfate (CARAFATE) 1 gram tablet 1 g. Active docusate sodium (COLACE) 100 mg capsule TAKE 1 CAPSULE (100 MG) BY MOUTH ONCE DAILY FOR 14 DAYS. Active aspirin [address] tablet 81 mg. Active polyethylene glycol (MIRALAX) 17 gram/dose oral powder MIX 17GM IN 80Z LIQUID AND GIVE VIA J-TUBE TWICE A DAY 01/25/2022 Active omeprazole (PriLOSEC) [address] capsule 20 mg. Active Active Problems Problem Noted Date Diagnosed Date Albuminuria 08/29/2020 Diabetes Mellitus Type 2 Hyperglycemia 0 Overview: A1C was 8.9 on 07/08/22 Hyperlipidemia Mixed 01/22/2010 Neuroma 02/27/2008 Other Psoriasis 05/25/2006 Encounters Date Type Department Care Team Description 05/19/2023 1:15 PM CDT Office Visit Department of Occupational Medicine in [address] [phone] Siena Palacio P.A.-C., P.A. Injury Head Initial; Pain Neck 04/29/2023 10:15 AM CDT Office Visit Department of Occupational Medicine in [address] [phone] Siena Palacio P.A.-C., P.A. Injury Head Initial (Primary Dx); Pain Neck 04/28/2023 3:00 PM CDT Office Visit Department of Ophthalmology in [address] [phone] Law French Jr., M.D. 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 Injury Head Initial (Primary Dx) from Last 3 Months Immunizations Name Administration Dates Next Due Influenza, Injectable, Quadrivalent 11/14,11/29/2017,12/07/2016,2015 Influenza, Unspecified 12/29/2016 PPSV23(Discontinued) 06/15/2011 Td, (Adult) Unspecified 02/14/1998 Tdap 11/24/2021,06/15/2011 influenza vaccine quad (FLUZONE/FLUARIX) (6 months and older)(PF) 12/18/2020,11/17/2019 Social History Tobacco Use Types Packs/Day Years Used Date Smoking Tobacco: Never Smokeless Tobacco: Never Tobacco Cessation:Counseling Given: Not Answered Humiliation, Afraid, Rape, and Kick questionnair e Answer Date Recorded Within the last year, have y ou been afraid of your partner or ex-partner? No 11/24/2021 Within the last year, have y ou been humiliated or emotionally abused in other ways by your partner or ex-partner? No Within the last year, have y ou been kicked, hit, slapped, or otherwise physically hurt by your partner or ex-partner? No 11/24/2021 Within the last year, have y ou been raped or forced to have any kind of sexual activity by your partner or ex-partner? No 11/24/2021 Social Connection and Isolat ion Panel [NHANES] Answer Date Recorded In a typical week, how many times do you talk on the phone with family, friends, or neighbors? More than three times a week 11/24/2021 How often do you get togethe r with friends or relatives? Once a week 11/24/2021 How often do you attend chur or scientology services? More than 4 times per year 11/24/2021 Do you belong to any clubs o r organizations such as anabaptism groups, unions, fraternal or athletic groups, or school groups? No 11/24/2021 How often do you attend meet ings of the clubs or organizations you belong to? Never 11/24/2021 Are you , , di vorced, , never , or living with a partner? 11/24/2021 Overall Financial Resource Strain (CARDIA) Answe r Date Recorded How hard is it for you to pa y for the very basics like food, housing, medical care, and heating? Not very hard 11/24/2021 PHQ-2 Answer Date Recorded PHQ-2 Score 6 08/12/2022 [facility] of Occupat ional Health - Occupational Stress Questionnaire Answer Date Recorded Do you feel stress - tense, restless, nervous, or anxious, or unable to sleep at night because your mind is troubled all the time - these days? Not at all 11/24/2021 Exercise Vital Sign Answer Date Recorde d On average, how many days pe r week do you engage in moderate to strenuous exercise (like a brisk walk)? 7 days 11/24/2021 On average, how many minutes do you engage in exercise at this level? 30 min 11/24/2021 Hunger Vital Sign Answer Date Recorded Within the past 12 months, y ou worried that your food would run out before you got the money to buy more. Sometimes true Within the past 12 months, t he food you bought just didn't last and you didn't have money to get more. Sometimes true 12/2021 PRAPARE - Transportation Answer Date Re corded In the past 12 months, has l ack of transportation kept you from medical appointments or from getting medications? Yes 11/14 In the past 12 months, has l ack of transportation kept you from meetings, work, or from getting things needed for daily living? Yes 11/24/2021 Housing Stability Vital Sign Answer Miah e Recorded In the last 12 months, was t here a time when you were not able to pay the mortgage or rent on time? No 11/24/2021 In the last 12 months, how many places have you lived? 1 11/24/2021 In the last 12 months, was t here a time when you did not have a steady place to sleep or slept in a long term (including now)? No 11/24/2021 Nutrition Answer Date Recorded Nutrition: EVOO Fat Source Yes 11/24 On average, how many serving s of fruits and vegetables do you eat per day (serving size is equal to 1 cup or approximately the size of a tennis ball)? 2-3 11/24/2021 Dental Answer Date Recorded Dental: Regular Dentist No 11/25/19 Employment Answer Date Recorded Employment status Employed and actively working without restrictions 11/24/2021 Education Answer Date Recorded What is the highest level of school you have completed or the highest degree you have received? 9th grade 11/24/2021 Sex and Gender Information Value Date Recorded Sex Assigned at Male 08/04/2022 2:54 PM CDT Gender Identity Not on file Sexual Orientation Not on file Last Filed Vital Signs Vital Sign Reading Time Taken Comments Blood Pressure 119/72 05/19/2023 1:40 PM CDT Pulse 91 05/19/2023 1:40 PM CDT Temperature 37.2 ??C (98.9 ??F) 04/29/2023 1 0:05 AM CDT Respiratory Rate 16 11/24/2021 2:19 PM CDT Oxygen Saturation 98% 09/10/2022 11: 43 AM CDT Inhaled Oxygen Concentration - - Weight 79.7 kg (175 lb 11.3 oz) 024 10:05 AM CDT Height 165.1 cm (5' 5) 04/29/2023 10:0 5 AM CDT Body Mass Index 29.24 04/29/2023 10:05 AM CDT Plan of Treatment Upcoming Encounters Date Type Department Care Team (Late st Contact Info) Description 06/24/2023 9:00 AM CDT Office Visit Department of Occupational Medicine in [place], [place] [address] [place] [phone] Siena Palacio P.A.-C., P.A. [address] [place] [phone] Health Maintenance Due Date Last Done Comments CT Colonography 1966 Cologuard 1966 Colonoscopy 1966 Colorectal Cancer Screening 1966 Diabetic Office Visit with F oot Exam 1966 FIT 1966 HIV Screening 1966 Hemoglobin A1C 1966 Hepatitis C Screening 1966 Urine Albumin 1966 Hepatitis B Vaccines (1 of 3 - 19+ 3-dose series) 1985 Pneumococcal vaccine (0-64 y ears) (2 of 2 - PCV) 06/14/2012 06/15/2011 Zoster Vaccines (1 of 2) 2016 Lipid (Cholesterol) Screening 07/01/2022, 08/27/2020, 02/20/2020 COVID-19 Vaccine (4 - 2022-2 4 season) 2022 12/18/2020, 05/31/2020, 05/10/2020 Depression Screening (Annual PHQ-2) 02/14/2023 Creatinine Level (Kidney Fun ction Test) 07/22/2023 07/21/2022, 12/24/2021, 07/01/2021, Additional history exists Potassium Level 07/22/2023 07/21/2022, 12/15, 07/01/2021, Additional history exists Sodium Level 07/22/2023 07/21/2022, 12/15, 07/01/2021, Additional history exists Dilated Eye Exam 04/27/2024 04/28/2023 Office Visit for Blood Press ure Check / Re-check 05/18/2024 05/19/2023 DTaP,Tdap,and Td Vaccines (3 - Td or Tdap) 11/25/2031 11/24/2021, 06/15/2011, 02/14/1998 Influenza Vaccine Completed 12/14/2022, , 12/18/2020, Additional history exists Procedures Procedure Name Priority Date/Time Associated Diagnosis Comments BASIC METABOLIC PANEL, S/P STAT 07/21/2022 12:10 PM CDT EXTI LIPID PANEL, S Routine 07/01/2021 9 :40 AM CDT from Last 3 Months or Most Recently Relevant to Health Maintenance Results * (ABNORMAL) Basic Metabolic Panel (07/21/2022 12:10 PM CDT) Potassium, P 4.6 3.6 - 5.2 mmol/L 07/21/2022 12:30 PM CDT CNFL Sodium, P 137 135 - 145 mmol/L 07/21/2022 12:30 PM CDT CNFL Chloride, P 104 98 - 107 mmol/L 07/21/2022 12:30 PM CDT CNFL Bicarbonate, P 22 22 - 29 mmol/L 07/21/2022 12:30 PM CDT CNFL Anion Gap, P 11 7 - 15 07/21/2022 12:30 PM CDT CNFL BUN (Blood Urea Nitrogen), P 25(H) 8 - 24 mg/dL 07/21/2022 12:30 PM CDT CNFL Creatinine 1.12 0.74 - 1.35 mg/dL 07/21/2022 12:30 PM CDT CNFL Estimated GFR (eGFR) 77 >=60 mL/min/BSA 07/21/2022 12:30 PM CDT CNFL Comment: Estimated GFR calculated using the 2020 CKD_EPI creatinine equation. Calcium, Total, P 9.8 8.6 - 10.0 mg/dL 07/21/2022 12:30 PM CDT CNFL Glucose, P 177(H) 70 - 140 mg/dL 07/21/2022 12:30 PM CDT CNFL Blood (Blood, Venous) 07/21/2022 12:10 PM CDT 07/21/2022 12:10 PM CDT Grant Ren APRN, C.N.P., D.N.P. LAB BLOOD ADD-ON [facility] [address] [place] [id number], [facility] CNFL [facility] in [address] [address] from Last 3 Months or Most Recently Relevant to Health Maintenance Care Teams Palm And Back Forger Relationship Specialty Start Date End Date Elsewhere, Pcp PCP - General Internal Medicine 11/24/21
--- OUTSIDE RECORDS SUMMARY | 2023-06-13 20:04 | XMS_ITS | Referral Summary ---
Author Name Unknown Organization [facility] Address [address] [place] [address] Care Team Providers Care Imagery Intelligence Name Role Phone Elsewhere, Pcp Primary Care Provider Unavailabl e Source Comments Patient records contain information from all sites at [facility]. For routine questions regarding patient records, call [phone] during business hours, M-F 8:00 AM - 5:00 PM Central Time. Record requests for emergency care only can be directed to [phone] at any time.[facility] Encounters Date Type Department Care Team Description 05/19/2023 1:15 PM CDT Office Visit Department of Occupational Medicine in [place], [place] [address] [place] [phone] Siena Palacio P.A.-C., P.A. Injury Head Initial; Pain Neck 04/29/2023 10:15 AM CDT Office Visit Department of Occupational Medicine in [place], [place] [address] [place] [phone] Siena Palacio P.A.-C., P.A. Injury Head Initial (Primary Dx); Pain Neck 04/28/2023 3:00 PM CDT Office Visit Department of Ophthalmology in [place], [place] [address] [place] [phone] Law French Jr., M.D. 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 Injury Head Initial (Primary Dx) from Last 3 Months Allergies No known active allergies Medications Medication [...] Mixed 01/22/2010 Neuroma 02/27/2008 Other Psoriasis 05/25/2006 Immunizations Name Administration Dates Next Due Influenza, [...] week 11/24/2021 How often do you attend [facility] or gnosticist services? More than 4 times per year 11/24/2021 Do you belong to any clubs o r organizations such as faith groups, unions, fraternal or athletic groups, or [...] Answer Date Recorded PHQ-2 Score 6 08/12/2022 [facility] of Occupat ional Health - Occupational Stress [...] place to sleep or slept in a senior living (including now)? No 11/24/2021 Nutrition Answer Date [...] Office Visit Department of Occupational Medicine in [place], [place] [address] [place] [phone] Siena Palacio P.A.-C., P.A. [address] [place] [phone] Procedures Procedure Name Priority Date/Time Associated Diagnosis [...] CDT 07/21/2022 12:10 PM CDT Grant Ren APRN C.N.P., D.N.P. LAB BLOOD ADD-ON [facility] [address] [place] [phone], [facility] CNFL [facility] in [address] [address] from Last 3 Months or Most Recently Relevant to Health Maintenance Care Teams Imagery Intelligence Relationship Specialty Start Date End Date Elsewhere, Pcp PCP - General Internal Medicine 11/24/21
--- OUTSIDE RECORDS SUMMARY | 2023-06-13 20:04 | XMS_ITS | Encounter Summary ---
Author Name Unknown Organization [facility] Address [address] [place] [address] Care Team Providers Care Preschool Assistant Director Name Role Phone Elsewhere, Pcp Primary Care Provider Unavailabl e Reason for Visit * Appointment Request (Routine) - Closed Specialty Diagnoses / Procedures Referred By Michael pino Referred To Contact Ophthalmology Referral ID Status Reason Start Date Expiration Date Visits Re quested Visits Authorized [id number] Closed 04/28/2023 04/27/2024 1 1 Encounter Details Date Type Department Care Team (Latest Contact Info) Description 04/28/2023 3:00 PM CDT Office Visit Department of Ophthalmology in [place], [place] [address] [phone] Law French Jr., M.D. 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 More than 4 times per year 11/24/2021 Do you belong to any clubs o r organizations such as gnosticist groups, unions, fraternal or athletic groups, or [...] Answer Date Recorded PHQ-2 Score 6 08/12/2022 [facility] of Occupat ional Health - Occupational Stress [...] place to sleep or slept in a halfway (including now)? No 11/24/2021 Nutrition Answer Date [...] on file Sexual Orientation Not on file documented as of this encounter Progress Notes * Law French Jr., M.D. - 04/28/2023 3:00 PM CDT Narciso Elmore was seen today for No chief complaint on file. 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 Ramires for proliferative diabetic retinopathy ou No sign of retinal detachment #2 Watch RTO prn documented in this encounter Plan of Treatment Upcoming Encounters Date Type Department Care Team (John wynne Contact Info) Description 06/24/2023 9:00 AM CDT Office Visit Department of Occupational Medicine in [place], [place] [address] [place] [phone] Siena Palacio P.A.-C., P.A. 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
--- OUTSIDE RECORDS SUMMARY | 2023-06-13 20:04 | XMS_ITS | Encounter Summary ---
Author Name Unknown Organization [facility] Address [address] [place] [address] Care Team Providers Care Crm Consultant Name Role Phone Elsewhere, Pcp Primary Care Provider Unavailabl e Reason for Referral * Outpatient (Routine) - Closed Specialty Diagnoses / Procedures Referred By Michael pino Referred To Contact Preventive Medicine Diagnoses Injury Head Initial Pain Neck Siena Palacio P.A.-C., P.A. [address] [address] [facility] Referral ID Status Reason Start Date Expiration Date Visits Re quested Visits Authorized [id number] Closed 04/29/2023 10/28/2024 1 1 * Physical Therapy (Routine) - Authorized Specialty Diagnoses / Procedures Referred By Contac t Referred To Contact Diagnoses Injury Head Initial Pain Neck Siena Palacio P.A.-C., P.A. 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 [address], [place] [address] Injury Head Initial (Primary Dx); Pain Neck Social History Tobacco Use Types Packs/Day Years [...] How often do you attend chur or nondenominational services? More than 4 times per year 11/24/2021 Do you belong to any clubs o r organizations such as voodoo groups, unions, fraternal or athletic groups, or [...] Answer Date Recorded PHQ-2 Score 6 08/12/2022 [facility] - Occupational [...] place to sleep or slept in a residential (including now)? No 11/24/2021 Nutrition Answer Date [...] on file documented as of this encounter Last Filed Vital Signs Vital Sign Reading Time Taken Comments Blood Pressure 138/82 04/29/2023 10:05 AM CDT Pulse 97 04/29/2023 10:05 AM CDT Temperature 37.2 ??C (98.9 ??F) 04/29/2023 1 0:05 AM CDT Respiratory Rate - - Oxygen Saturation - - Inhaled Oxygen Concentration - - Weight 79.7 kg (175 lb 11.3 oz) 024 10:05 AM CDT Height 165.1 cm (5' 5) 04/29/2023 10:0 5 AM CDT Body Mass Index 29.24 04/29/2023 10:05 AM CDT documented in this encounter Progress Notes * Siena Palacio P.A.-C., P.A. 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 Narciso Elmore is a 58 y.o. male who presents today for return visit in regard to a head injury that occurred at work on 04/21/23. He presents with his son today. To review, the injury occurred when the patient was attempting to shift a dish rack that had gottenstuck in a creel selector machine. He was reaching into the machine, and then he accidentally struck the left side of his head against the inside of the creel selector machine as he was trying to back out ofit. The patient reported that he blacked out for about 4-5 seconds and felt dizzy afterward. He denied any episodes of vomiting. The patient was initially seen in the ED in [place] on the [facility], where CT imaging of the head and neck was negative for any acute findings. The patient was then discharged with instructions for conservative cares. At his initial visit in our clinic yesterday, there was some concern for possible retinal detachment or tear given the visual symptoms he described, whichhad reportedly been present ever since the head injury. The patient was evaluated in our ophthalmology department that same day, where there was fortunately no evidence of retinal detachment, although his diabetic retinopathy was noted to be significant. Today, Narciso reports Pain Score: 9/10; Pain Loc: Head. He states that his symptoms are essentially the same as they were yesterday. He reports a headache and some pain and stiffness in his neck. Recall that he has remained out of work since the [facility], and he is currently off for spring. Previous injury or condition: Denies any prior injuries, surgeries, or conditions of the head. He has a history of diabetes and diabetic retinopathy. He follows regularly with [facility] for his diabetic retinopathy. Most recent A1c per chart review was 8.9% on 07/08/22. He is currently on insulin, glyburide, and metformin for his diabetes. He is on baby aspirin and antihypertensive medication as well. Social and Occupational History: He works for [employer] (at [employer]), duration of employment: 2 months. He works full-time 5 days per week for 8 hours per shift. He works overtime frequently, usually about 2 days per week. He is currently off work due to spring break, which will continue for about another 2 weeks. Tobacco use: never Past Medical History: Diagnosis Date Constipation Diabetes Mellitus Type 2 (HCC) Gastroesophageal Reflux Disease Hypertension Essential Primary Current Outpatient Medications on File Prior to Visit Medication Sig Dispense Refill aspirin 325 mg oral capsule Take 325 mg by mouth daily. aspirin [address] tablet 81 mg. blood sugar diagnostic (OneTouch Ultra Test) strips 1 strip by other route 3 (three) times a day. clobetasoL (TEMOVATE) 0.05 % ointment Apply 1 application topically 2 (two) times a day. clotrimazole-betamethasone (LOTRISONE) 1-0.05 % cream APPLY TO THE AFFECTED TOPICALLY AND SURROUNDING AREAS OF SKIN 2 TIMES PER DAY IN THE MORNING AND EVENING FOR 2 WEEKS docusate sodium (COLACE) 100 mg capsule TAKE 1 CAPSULE (100 MG) BY MOUTH ONCE DAILY FOR 14 DAYS. fluocinonide (LIDEX) 0.05 % ointment Apply 1 application topically 2 (two) times a day. glyBURIDE (DIABETA) 5 mg tablet Take 10 mg by mouth 2 (two) times a day. insulin NPH 100 unit/mL injection Inject 20 Units under the skin 2 (two) times a day. lisinopriL (PRINIVIL,ZESTRIL) 20 mg tablet Take 20 mg by mouth daily. metFORMIN (GLUCOPHAGE) 1,000 mg tablet Take 1,000 mg by mouth 2 (two) times a day. omeprazole (PriLOSEC) [address] capsule 20 mg. polyethylene glycol (MIRALAX) 17 gram/dose oral powder MIX 17GM IN 80Z LIQUID AND GIVE VIA J-TUBE TWICE A DAY sucralfate (CARAFATE) 1 gram tablet 1 g. triamcinolone (KENALOG) 0.1 % cream APPLY A THIN LAYER TOPICALLY TO THE AFFECTED AREA(S) 2 TIMES PER DAY No current facility-administered medications on file prior to visit. ROS: Eyes: Positive for visual problems. - Negative for sudden loss of vision. - Positive for flashes in vision Musculoskeletal: Positive for muscle pain/stiffness. - Negative for pain or stiffness in the joints, back pain and joint swelling. - Positive for neck pain Neurological: Positive for loss of consciousness and headaches. - Negative for seizures, light-headedness, numbness or shooting pain in hands, arms, legs, or feet,loss of balance or tendency to fall easily, slurred speech and weakness in arms or legs. The following systems were negative: Constitutional, Skin, ENT, Respiratory, Cardiovascular, Gastrointestinal, Hematologic BP 138/82 (BP Location: Right arm, Patient Position: Sitting, Cuff Size: Regular) Pulse 97 Temp37.2 ??C (Temporal) Ht 165.1 cm Wt 79.7 kg BMI 29.24 kg/m?? PHYSICAL EXAM: Constitutional General: He is not in acute distress. Appearance: He is not toxic-appearing. Comments: Relaxed HENT Head: Normocephalic. Comments: There is some tenderness to palpation over the left parietal scalp with an underlying hematoma. Nose: Nose normal. No congestion or rhinorrhea. Eyes General: No scleral icterus. Right eye: No discharge. Left eye: No discharge. Extraocular Movements: Extraocular movements intact. Conjunctiva/sclera: Conjunctivae normal. Pupils: Pupils are equal, round, and reactive to light. Neck Comments: There is some tenderness to palpation in the mid suboccipital region. Flexion and extension remain limited. Cardiovascular Rate and Rhythm: Normal rate. Pulmonary Effort: Pulmonary effort is normal. No respiratory distress. Abdominal General: Abdomen is flat. There is no distension. Musculoskeletal General: No swelling or deformity. Comments: Extremities: Warm and well perfused. No joint pain or deformities. Skin General: Skin is warm and dry. Capillary Refill: Capillary refill takes less than 2 seconds. Coloration: Skin is not pale. Findings: No bruising, lesion or rash. Neurological Mental Status: He is alert. Comments: Thought processes coherent. Oriented to person, place, and time. Gait with normal base. Diagnostics: CT CERVICAL SPINE WITHOUT CONTRAST Result date: 04/21/23 IMPRESSION: No acute fracture or traumatic malalignment of the cervical spine. Spondylotic changes at C6-7. CT HEAD WITHOUT CONTRAST Result date: 04/21/23 IMPRESSION: No acute intracranial findings. ASSESSMENT / PLAN 1. Injury Head Initial 2. Pain Neck MMI: No PPD: Undetermined Work Related: Yes This visit was conducted with the assistance of charger operator services. 58 y/o male presents for return visit in regard to a head injury that occurred at work on 04/21/23 when he struck his head on the side of a creel selector machine. The patient was seen yesterday in ophthalmology, and there was fortunately no evidence of retinal detachment, although the patient's diabeticretinopathy was noted to be significant. Encouraged the patient to follow up with [facility]. Otherwise, clinical picture is consistent with concussion and neck strain. Referral was placed to PT today for further evaluation and treatment. Discussed appropriate conservative cares, including activity modification, brain rest, gentle motion/stretches, avoidance of alcohol/stimulants, and OTC pain medications PRN. After discussion, work restrictions were outlined for 4 hours per day, limitedlift/push/pull, no bending or climbing. Further details below. Will plan for return visit in our clinic in approximately 3 weeks. May return sooner if concerns arise. Discussed worsening symptoms that would prompt sooner return. Medications: OTC analgesics PRN. Discussed limited use in order to prevent rebound headaches. Work status: modified duty with restrictions as follows: 4 hours per day. Maximum lifting 10 lbs, front carry only. Maximum push/pull 10 lbs. No bending or climbing. Rare kneeling and squatting/crouching. Standing/walking & sitting as tolerated. See attached Report of Injury and Illness for full details. The patient indicates understanding of these issues and agrees with the plan. 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 Thank you for letting me be involved in your care. documented in this encounter Plan of Treatment Upcoming Encounters Date Type Department Care Team (Late st Contact Info) Description 06/24/2023 9:00 AM CDT Office Visit Department of Occupational Medicine in [place], [place] [address] [phone] Siena Palacio P.A.-C., P.A. [address] [phone] Scheduled Referrals Name Type Priority Associated Diagnoses Order Schedule Preventive Medicine office visit (clinic) Outpatient Referral Routine Injury Head Initial Pain Neck Expected: 05/20/2023, Expires: 07/29/2024 documented as of this encounter Visit Diagnoses Diagnosis Injury Head Initial- Primary Pain Neck documented in this encounter Care Teams Crm Consultant Relationship Specialty Start Date End Date Elsewhere, Pcp PCP - General Internal Medicine 11/24/21 documented as of this encounter
--- OUTSIDE RECORDS SUMMARY | 2023-06-13 20:04 | XMS_ITS ---
Author Name Unknown Organization [facility] Address [address] [place] [address] Care Team Providers Care Senior Financial Reporting Accountant Name Role Phone Unavailable Unavailable Unavailable Surgery Details Not on file Complications Check Surgery Details section. Procedure Estimated Blood Loss Check Surgery Details section. Procedure Findings Check Surgery Details section. Procedure Specimens Taken Check Surgery Details section.
--- OUTSIDE RECORDS SUMMARY | 2023-06-13 20:04 | XMS_ITS | Encounter Summary ---
Author Name Unknown Organization [facility] Address [address] [place] [address] Care Team Providers Care Excelsior Cutter Name Role Phone Elsewhere, Pcp Primary Care Provider Unavailabl e Reason for Visit * Reason Comments Work Related Injury DOI 04/21/2023[employer] - [place] * Appointment Request (Routine) - Closed Specialty Diagnoses / Procedures Referred By Contmadelaine t Referred To Contact Occupational Medicine Diagnoses n/a [facility] Referral ID Status Reason Start Date Expiration Date Visits Re quested Visits Authorized [id number] Closed 04/26/2023 04/25/2024 1 1 Encounter Details Date Type Department Care Team (Latest Contact Info) Description 04/28/2023 1:45 PM CDT Comprehensive Visit Department of Occupational Medicine in [place], [place] [address] [address] Siena Palacio, P.A.-Zachary., P.A. [address] [address] Injury Head Initial (Primary Dx) Social History Tobacco Use Types Packs/Day Years [...] 11/24/2021 How often do you attend chur ch or mormon services? More than 4 times per year 11/24/2021 Do you belong to any clubs o r organizations such as restorationism groups, unions, fraternal or athletic groups, or [...] Answer Date Recorded PHQ-2 Score 6 08/12/2022 [facility] - Occupational [...] Sign Reading Time Taken Comments Blood Pressure 128/79 04/28/2023 1:36 PM CDT re- take Pulse 94 04/28/2023 1:36 PM CDT Temperature - - Respiratory Rate - - Oxygen Saturation - - Inhaled Oxygen Concentration - - Weight - - Height - - Body Mass Index - - documented in this encounter Progress Notes * Siena Palacio P.A.-C., P.A. 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 male who presents today for evaluation in regard to a headinjury that occurred at work on 04/21/23. He presents with his son today, who assists with translation. The injury occurred when the patient was attempting to shift a dish rack that had gotten stuck in [employer] machine. He was reaching into the machine, and then he accidentally struck the left sideof his head against the inside of the color blender machine as he was trying to back out of it. The patient reports that he blacked out for about 4-5 seconds and felt dizzy afterward. He denies any episodes of vomiting. The patient was seen in the ED in [place] on the [facility], where CT imaging of the head and neck was negative for any acute findings. The patient was then discharged with instructions for conservative cares. Today, Narciso reports Pain Score: 8/10; Pain Loc: Head (left side). He reports some improvement in his pain since the DOI, but he does still have pain, mainly over the left side of his head. He states that there is still a bump on the left side of his head, and it feels warm at times. Pain does not radiate. He has been using OTC Tylenol at night for pain control with minimal relief. He reportssome mild pain and stiffness in his neck. He denies any dizziness at this point, and he feels that his memory & cognition are fine. Upon further questioning, he does endorse that he has been experiencing some vision changes ever since the head injury. He reports blurry vision and periodic flashes in his vision, in both eyes. He states that he did not have any of these visual symptoms prior tothe head injury. He does report a history of diabetic retinopathy, for which he is seen regularly at [facility]. Previous injury or condition: Denies any prior injuries, surgeries, or conditions of the head. He has a history of diabetes and diabetic retinopathy. Most recent A1c per chart review was 8.9% on 07/08/22. He is currently on insulin, glyburide, and metformin for his diabetes. He is on baby aspirin and antihypertensive medication as well. Occupational Medicine Consultation Document complete and reviewed, please see scanned document for details. Social and Occupational History: He works for [employer] (at [employer] duration of employment: 2 months. He works [...] DR tablet 81 mg. blood sugar diagnostic ([employer] GasTouch Ultra Test) strips 1 strip by other route 3 (three) times a day. clobetasoL (TEMOVATE) 0.05 % ointment Apply 1 application topically 2 (two) times a day. clotrimazole-betamethasone (LOTRISONE) 1-0.05 % cream APPLY TO THE AFFECTED TOPICALLY AND SURROUNDING AREAS OF SKIN 2 TIMES PER DAY IN THE MORNING AND EVENING FOR 2 WEEKS fluocinonide (LIDEX) 0.05 % ointment Apply 1 [...] (PriLOSEC) [address] capsule 20 mg. triamcinolone (KENALOG) 0.1 % cream APPLY A THIN LAYER TOPICALLY TO THE AFFECTED AREA(S) 2 TIMES PER DAY docusate sodium (COLACE) 100 mg capsule TAKE 1 CAPSULE (100 MG) BY MOUTH ONCE DAILY FOR 14 DAYS. polyethylene glycol (MIRALAX) 17 gram/dose oral powder MIX 17GM IN 80Z LIQUID AND GIVE VIA J-TUBE TWICE A DAY sucralfate (CARAFATE) 1 gram tablet 1 g. No current facility-administered medications on file prior [...] Skin, ENT, Respiratory, Cardiovascular, Gastrointestinal, Hematologic BP 128/79 (BP Location: Right arm, Patient Position: Sitting, Cuff Size: Regular) Comment: re-take Pulse 94 PHYSICAL EXAM: Constitutional General: He is not in acute distress. Appearance: He is not toxic-appearing. Comments: Relaxed HENT Head: Normocephalic. Comments: No significant ecchymosis. No deformity. No Acuña sign or racoon eyes. There is some tenderness to palpation over the left parietal scalp with an underlying hematoma. Right Ear: Tympanic membrane, ear canal and external ear normal. Left Ear: Tympanic membrane, ear canal and external ear normal. Ears: Comments: No hemotympanum Nose: Nose normal. No congestion or rhinorrhea. Mouth/Throat: Mouth: Mucous membranes are moist. Pharynx: Oropharynx is clear. No oropharyngeal exudate or posterior oropharyngeal erythema. Eyes General: No scleral icterus. Right eye: No discharge. Left eye: No discharge. Extraocular Movements: Extraocular movements intact. Conjunctiva/sclera: Conjunctivae normal. Pupils: Pupils are equal, round, and reactive to light. Neck Comments: There is some tenderness to palpation in the mid suboccipital region. Flexion is slightlylimited. Notable limitation in extension. Right & left side rotation are slightly limited. Cardiovascular Rate and Rhythm: Normal rate. Heart sounds: Normal heart sounds. No murmur heard. No friction rub. No gallop. Pulmonary Effort: Pulmonary effort is normal. No respiratory distress. Breath sounds: Normal breath sounds. No wheezing, rhonchi or rales. Abdominal General: Abdomen is flat. There is [...] place, and time. Gait with normal base. Heel to toe walking is intact. Cranial nerves 2-12 grossly intact. Biceps and patellar reflexes 2+ and symmetric. Romberg testing, [id number], rapid alternating movements are all within normal limits. Diagnostics: CT CERVICAL SPINE WITHOUT CONTRAST Result date: 04/21/23 IMPRESSION: No acute fracture or traumatic malalignment of the cervical spine. Spondylotic changes at C6-7. CT HEAD WITHOUT CONTRAST Result date: 04/21/23 IMPRESSION: No acute intracranial findings. ASSESSMENT / PLAN 1. Injury Head Initial MMI: No PPD: Undetermined Work Related: Yes 58 y/o male presents for evaluation of a head injury that occurred at work one week ago when he struck his head on the side of a color blender machine. [facility]en [facility] the [facility], where CT imaging of thehead and cervical spine were negative for any acute intracranial findings or acute osseous injury. Aside from headaches, upon further questioning the patient does endorse visual changes including flashes and blurriness in both eyes ever since the head injury. The patient has a history of diabetic retinopathy, for which he follows regularly with [facility]. Clinical picture is concerning for possible retinal detachment or tear after closed head injury. A same-day consult with our ophthalmology team was coordinated, and the patient was escorted straight to their department. Will plan forclose follow-up in our clinic tomorrow. Work status: unable to work. Off work until recheck tomorrow. See attached Report of Injury and Illness for full details. The patient indicates understanding of these issues and agrees with the plan. Patient has been instructed to discuss their work status with their dried yeast supervisor. Tobacco cessation counseling: Not applicable, patient is not currently using tobacco. I discussed this case in detail with my colleague Sania Parks PA-C. Thank you for letting me be involved in your care. documented in this encounter Plan of Treatment Upcoming Encounters Date Type Department Care Team (Late st Contact Info) Description 06/24/2023 9:00 AM CDT Office Visit Department of Occupational Medicine in [place], [place] [address] [place] [address] Siena Palacio P.A.-C., P.A. [address], [place] [address] documented as of this encounter Visit Diagnoses Diagnosis Injury Head Initial- Primary documented in this encounter Care Teams Excelsior Cutter Relationship Specialty Start Date End Date Elsewhere, Pcp PCP - General Internal Medicine 11/24/21 documented as of this encounter
--- OUTSIDE RECORDS SUMMARY | 2023-06-13 20:04 | XMS_ITS | Encounter Summary ---
Author Name Unknown Organization [facility] Address [address] [place] [address] Care Team Providers Care Power Mule Operator Name Role Phone Elsewhere, Pcp Primary Care Provider Unavailabl e Reason for Referral * Outpatient (Routine) - Authorized Specialty Diagnoses / Procedures Referred By Contac t Referred To Contact Preventive Medicine Diagnoses Injury Head Initial Pain Neck Siena Palacio P.A.-C., P.A. [address] [address] [facility] Referral ID Status Reason Start Date Expiration Date V isits Requested Visits Authorized [id number] Authorized 05/19/2023 11/17/2024 1 1 * Outpatient (Routine) - Pending Review Specialty Diagnoses / Procedures Referred By Contact Referred To Contact Physical Medicine and Rehabilitation Diagnoses Injury Head Initial Siena Palacio P.A.-C., P.A. [address] [address] [facility] Referral ID Status Reason Start Date Expiration Date V isits Requested Visits Authorized [id number] Pending Review 05/19/2023 11/17/2024 1 1 Reason for Visit * Reason Comments Work Related Injury DOI 04/21/2023HeadBo n Appetite: [place] * Outpatient (Routine) - Closed Specialty Diagnoses / Procedures Referred By Michael pino Referred To Contact Preventive Medicine Diagnoses Injury Head Initial Pain Neck Siena Palacio P.A.-C., P.A. [address] [address] [facility] Region Referral ID Status Reason Start Date Expiration Date Visits Re quested Visits Authorized [id number] Closed 04/29/2023 10/28/2024 1 1 Encounter Details Date Type Department Care Team (Latest Contact Info) Description 05/19/2023 1:15 PM CDT Office Visit Department of Occupational Medicine in [place], [place] [address] [address] Siena Palacio P.A.-C., P.A. [address] [phone] Injury Head Initial; Pain Neck Social History Tobacco Use Types [...] often do you attend chur ch or jainism services? More than 4 times per year 11/24/2021 Do you belong to any clubs o r organizations such as roman catholic groups, unions, fraternal or athletic groups, or [...] Answer Date Recorded PHQ-2 Score 6 08/12/2022 [facility] Occupat ional Health - Occupational Stress [...] place to sleep or slept in a fci (including now)? No 11/24/2021 Nutrition Answer Date [...] Pulse 91 05/19/2023 1:40 PM CDT Temperature - - Respiratory Rate - - Oxygen Saturation - - Inhaled Oxygen Concentration - - Weight - - Height - - Body Mass Index - - documented in this encounter Progress Notes * Siena Palacio P.A.-C., P.A. 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 Narciso Elmore is a 58 y.o. male who presents today for return visit in regard to a head injury that occurred at work on 04/21/23. He presents with his son today. 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 He was reaching into the machine, and then he accidentally struck the left side of his head against the inside of the gluing machine offbearer machine as he was trying to back out ofit. The patient reported that he blacked out for about 4-5 seconds and felt dizzy afterward. He denied any episodes of vomiting. The patient was initially seen in the ED in [place] on the , where CT imaging of the head and neck was negative for any acute findings. The patient was then discharged with instructions for conservative cares. At his initial visit in our clinic, there was some concern for possible retinal detachment or tear given the visual symptoms he described, which had reportedly been present ever since the head injury. The patient was evaluated in our ophthalmology department that same day, where there was fortunately no evidence of retinal detachment, although his diabetic retinopathy was noted to be significant. At his follow-up in our clinic the next day, the patient was given work restrictions and referred to PT. Narciso presents for follow-up today, reporting Pain Score: 8/10; Pain Loc: Head. He reports ongoing headaches with occasional dizziness. He still has some visual symptoms that have not changed much, but he is scheduled to follow up with [facility] in June. He denies any pain in his neck, but his neck does feel stiff. He has not yet started any PT. He states that he does not remember being referred to PT. He ended up going to the ED in [place] on 05/11 due to his headaches, where he was prescribed Toradol and Flexeril. He has been taking this medications with some benefit. He is concerned because his employer is not following his restrictions. He states that he still has to do heavy lifting at work, and he is planning to go see a front tender about all this tomorrow. Previous injury or condition: Denies any prior injuries, surgeries, or conditions of the head. He has a history of diabetes and diabetic retinopathy. He follows regularly with [facility] for his diabetic retinopathy. Most recent A1c per chart review was 8.9% on 07/08/22. He is currently on insulin, glyburide, and metformin for his diabetes. He is on baby aspirin and antihypertensive medication as well. Social and Occupational History: He works for [employer] (at [employer]), duration of employment: 2 months. He works full-time 5 days per week for 8 hours per shift. He works overtime frequently, usually about 2 days per week. Tobacco use: never Past Medical History: Diagnosis [...] - Negative for sudden loss of vision. Musculoskeletal: Positive for muscle pain/stiffness. - Negative for pain or stiffness in the joints, back pain and joint swelling. Neurological: Positive for loss of consciousness, light-headedness and headaches. - Negative for seizures, numbness or shooting pain in hands, arms, legs, or feet, loss of balance or tendency to fall easily, slurred speech and weakness in arms or legs. The following systems were negative: Constitutional, Skin, ENT, Respiratory, Cardiovascular, Gastrointestinal, Hematologic BP 119/72 (BP Location: Right arm, Patient Position: Sitting, Cuff Size: Regular) Pulse 91 PHYSICAL EXAM: Constitutional General: He is not in acute distress. Appearance: He is not toxic-appearing. Comments: Relaxed HENT Head: Normocephalic and atraumatic. Nose: Nose normal. No congestion or rhinorrhea. Eyes General: No scleral icterus. Right eye: No discharge. Left eye: No discharge. Extraocular Movements: Extraocular movements intact. Conjunctiva/sclera: Conjunctivae normal. Pupils: Pupils are equal, round, and reactive to light. Neck Comments: There is some tenderness to palpation in the mid suboccipital region. Cervical flexion within normal limits but extension remains limited with discomfort. Cardiovascular Rate and Rhythm: Normal rate. Pulmonary [...] patellar reflexes 2+ and symmetric. Romberg testing, rapid alternating movements are within normal limits. Psychiatric Mood and Affect: Mood normal. Behavior: Behavior normal. Thought Content: Thought content normal. Diagnostics: CT CERVICAL SPINE WITHOUT CONTRAST Result date: 04/21/23 IMPRESSION: No acute fracture or traumatic malalignment of the cervical spine. Spondylotic changes at C6-7. CT HEAD WITHOUT CONTRAST Result date: 04/21/23 IMPRESSION: No acute intracranial findings. ASSESSMENT / PLAN 1. Injury Head Initial 2. Pain Neck MMI: No PPD: Undetermined Work Related: Yes This visit was conducted with the assistance of picker feeder services. 58 y/o male presents for return visit in regard to a head injury that occurred at work on 04/21/23. The patient has not yet been able to start PT. He reports ongoing headaches, occasional dizziness, and some persistent visual symptoms due to diabetic retinopathy. No neurological abnormalities on exam. Encouraged the patient to follow up as scheduled with [facility]. At this time, given the duration of symptoms, referral was placed to the brain rehabilitation program in [place]. Encouraged the patient to proceed with local PT as well to work on his cervical muscle tension. Reviewed instructions for conservative cares, including activity modification, brain rest, gentle motion/stretches, and avoidance of alcohol/stimulants. No change in restrictions for now. Further details below. Will plan for return visit in our clinic in approximately 4 weeks. May return sooner if concerns arise. Discussed worsening symptoms that would prompt sooner return, including red flag symptoms that would prompt emergent evaluation. 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 Thank you for letting me be involved in your care. I spent a total of 33 minutes today. documented in this encounter Plan of Treatment Upcoming Encounters Date Type Department Care Team (Late st Contact Info) Description 06/24/2023 9:00 AM CDT Office Visit Department of Occupational Medicine in [place], [place] [address] [phone] Siena Palacio P.A.-C., P.A. [address] [address] Scheduled Referrals Name Type Priority Associated Diagnoses Order Schedule Physical Medicine and Rehabilitation - General consult (clinic) Outpatient Referral Routine Injury Head Initial Expected: 05/19/2023, Expires: 08/17/2024 Preventive Medicine office visit (clinic) Outpatient Referral Routine Injury Head Initial Pain Neck Expected: 06/18/2023, Expires: 08/17/2024 documented as of this encounter Visit Diagnoses Diagnosis Injury Head Initial Pain Neck documented in this encounter Care Teams Power Mule Operator Relationship Specialty Start Date End Date Elsewhere, Pcp PCP - General Internal Medicine 11/24/21 documented as of this encounter
== END 2023-06-13 20:15 | disposition home or self-care (01) ==
LOC: ED 20:02
PROVIDERS: Emergency Provider Emergency Medicine Emergency Medical Services; PCP Family Medicine
DX: J06.9 Acute upper respiratory infection, unspecified (principal); H10.023 Other mucopurulent conjunctivitis, bilateral
CPT/HCPCS: 99283; 99284

== ENCOUNTER 2023-09-13 19:27 | Emergency (ER) | payer MEDICAID, SELFPAY ==
[2023-09-13 19:38] VITALS: BP 108/73; PULSE 89; RESP 20; TEMP 36.7; O2SAT 99; BMI 28.3
--- NOTE | 2023-09-13 20:09 | ED.WOUNDLAC ---
HPI - Wound/Laceration General Chief Complaint: Laceration/Wound Stated Complaint: Laceration - R thumb Time Seen by Provider: 09/13/23 19:32 History of Present Illness HPI narrative: This 58-year-old male comes in with an injury to his right thumb. He has a small laceration on the pad of his right thumb that occurred just prior to arrival. His tetanus status is up-to-date. Related Data Home Medications ?Medication ?Instructions ?Recorded ?Confirmed Insulin See Rx Instructions .Route .COMPLEX 10/03/21 06/13/23 metformin 1,000 mg tablet 1,000 mg 10/03/21 glyburide 5 mg tablet 10 mg PO BID 12/19/22 06/13/23 insulin NPH isoph U-100 human 100 20 unit subcut BID 12/19/22 06/13/23 unit/mL subcutaneous suspension (Humulin N NPH U-100 Insulin (isophane susp)) lisinopril 20 mg tablet 20 mg PO DAILY 12/19/22 06/13/23 metformin 1,000 mg tablet 1,000 mg PO BIDWMEAL 12/19/22 12/19/22 polyethylene glycol 3350 17 17 g PO DAILY PRN 12/19/22 06/13/23 gram/dose oral powder (Miralax) aspirin 81 mg tablet,delayed 81 mg PO DAILY diabetes mellitus 06/13/23 06/13/23 release clotrimazole-betamethasone 1 applic topical 06/13/23 %-0.05 % topical cream Previous Rx's ?Medication ?Instructions ?Recorded sennosides 8.6 mg capsule (senna) 8.6 mg PO DAILY PRN constipation 12/19/22 #90 caps cyclobenzaprine 10 mg tablet 10 mg PO TID #15 tabs 03/30/23 ketorolac 10 mg tablet 10 mg PO Q8H 5 days #15 tabs 03/30/23 cyclobenzaprine 10 mg tablet 10 mg PO TID #15 tabs 05/12/23 ketorolac 10 mg tablet 10 mg PO Q8H 5 days #15 tabs 05/12/23 codeine 10 mg-guaifenesin 100 mg/5 10 ml PO Q4-6H PRN #200 mL 06/13/23 mL oral liquid polymyxin B sulfate 10,000 1 drp ophthalmic (eye) Q3H 7 days 06/13/23 unit-trimethoprim 1 mg/mL eye drops #10 mL Allergies Allergy/AdvReac Type Severity Reaction Status Date / Time No Known Drug Allergies Allergy Verified 09/13/23 19:39 Review of Systems Status of ROS: Reports: 10 or more systems reviewed and unremarkable except as noted in History and below Narrative: Constitutional: No fevers, no weight gain or loss. Eyes: No discharge. No vision changes. HENT: No congestion, no sore throat, no ear pain. Cardiovascular: No chest pain, no palpitations. Respiratory: No shortness of breath, no wheezes, no cough. Gastrointestinal: No abdominal pain, no vomiting, no diarrhea. Genitourinary: No dysuria, no hematuria. Musculoskeletal: Normal range of motion. Skin: No rashes, no pruritis. Neurological: No dizziness, weakness, sensory change, speech change. Endo/Heme/Allergies: No bruising or bleeding. No polydipsia. Pysch: no suicidality, no anxiety, no insomnia. All other systems reviewed and are negative. PFSH [facility] Medical History Psoriasis ?L40.9 - Psoriasis, unspecified (ICD-10) Diabetes ?E11.9 - Type 2 diabetes mellitus without complications (ICD-10) Hypertension ?I10 - Essential (primary) hypertension (ICD-10) Social History (System 05/26/23 @ 11:08 by Shreya Crystal) What is your current living situation?: I presently have a place to live Problems where you live: no known problems Problems where you live details: no known problems In the past 12 months, utilities in danger of being shut off: yes In past 12 months, lack of transportation kept you from medical appts, meetings, work, or getting things needed for daily living: no In the past 12 mos, have been you worried that your food would run out before you had money to buy more?: sometimes true In the past 12 mos, the food you bought just didn't last and you didn't have money to buy more?: sometimes true Smoking Status: Never smoker Do you use any of these nicotine containing products: None Second hand tobacco smoke exposure: No How often do you have a drink containing alcohol: never AUDIT-C Alcohol total score: 0 Non-prescribed substance use: denies use Caffeine: Yes (Coffee) How often does anyone, including family, friends and others, physically hurt you: never How often does anyone, including family, friends and others, insult or talk down to you: never How often does anyone, including family, friends and others, threaten you with harm: never How often does anyone, including family, friends and others, scream or curse at you: never service: No Exam Narrative: Exam Narrative: Constitutional: Well-developed, well-nourished, no acute distress. HEENT: Normocephalic, atraumatic. Neck: Normal range of motion. Nontender. Supple. Heart: Intact distal pulses. Lungs: No chest discomfort. No wheezes, rhonchi, or rales. Abdomen: Nontender. Back: Normal range of motion. Extremities: Normal range of motion. 0.5 cm laceration on the palmar aspect of the distal portion of the right thumb. There is no ongoing bleeding. Skin: Intact. No rash. Warm. No erythema or pallor. Neurologic: No altered sensation. No weakness. Alert and oriented. Psychiatric: No suicidality. No anxiety or depression. No insomnia. Nursing notes and vitals signs are reviewed. Const: Vital Signs, click to edit/add: Vital Signs - 24 hr 09/13/23 19:38 Temperature 98.0 F Pulse Rate [Right Pulse Oximeter] 89 Respiratory Rate 20 Blood Pressure [Ri ght Upper Arm] 108/73 Pulse Oximetry 99 Oxygen Delivery Me thod Room Air Course Vital Signs Vital signs: Initial Vital Signs Temperature 98.0 F 09/13/23 19:38 Temperature Source Temporal Artery Scan 09/13/23 19:38 Pulse Rate 89 09/13/23 19:38 Respiratory Rate 20 09/13/23 19:38 Blood Pressure 108/73 09/13/23 19:38 Blood Pressure Mean 84 09/13/23 19:38 Blood Pressure Position Sitting 09/13/23 19:38 Pulse Oximetry 99 09/13/23 19:38 Oxygen Delivery Method Room Air 09/13/23 19:38 Vital Signs Temperature 98.0 F 09/13/23 19:38 Pulse Rate 89 09/13/23 19:38 Respiratory Rate 20 09/13/23 19:38 Blood Pressure 108/73 09/13/23 19:38 Pulse Oximetry 99 09/13/23 19:38 Oxygen Delivery Method Room Air 09/13/23 19:38 Temperature 98.0 F 09/13/23 19:38 Pulse Rate 89 09/13/23 19:38 Respiratory Rate 20 09/13/23 19:38 Blood Pressure 108/73 09/13/23 19:38 Pulse Oximetry 99 09/13/23 19:38 Oxygen Delivery Method Room Air 09/13/23 19:38 MDM - Wound/Laceration MDM Narrative Medical decision making narrative: This patient has a small laceration on his right thumb. Skin edges are well approximated. The wound was cleansed and Dermabond was applied. This was followed by a Band-Aid. Instructions regarding wound care were given. Discharge Plan Discharge Clinical Impression: Laceration Patient Disposition: Home, Self-Care Condition: Stable Additional Instructions: Keep wound clean and dry. Follow up with MD as needed. Return if worsening. Prescriptions: No Action cyclobenzaprine 10 mg tablet 10 mg PO TID Qty: 15 0RF ketorolac 10 mg tablet 10 mg PO Q8H 5 Days Qty: 15 0RF aspirin 81 mg tablet,delayed release (DR/EC) 81 mg PO DAILY clotrimazole-betamethasone 1-0.05 % cream topical polymyxin B sulf-trimethoprim 10,000 unit- 1 mg/mL drops 1 drp ophthalmic (eye) Q3H 7 Days Qty: 10 0RF Rx Instructions: while awake; do not exceed 6 doses in 24 hours codeine-guaifenesin 10-100 mg/5 mL liquid 10 ml PO Q4-6H PRNQty: 200 0RF metformin 1,000 mg tablet 1,000 mg Patient Comments: TAKE ONE TABLET BY MOUTH TWICE A DAY WITH MORNING AND EVENING MEALS Insulin See Rx Instructions .ROUTE .COMPLEX Rx Instructions: 10units each AM; 15 units at noc; polyethylene glycol 3350 [Miralax] 17 gram/dose powder 17 g PO DAILY PRN Humulin N NPH U-100 Insulin 100 unit/mL suspension 20 unit subcut BID metformin 1,000 mg tablet 1,000 mg PO BIDWMEAL lisinopril 20 mg tablet 20 mg PO DAILY glyburide 5 mg tablet 10 mg PO BID senna 8.6 mg capsule 8.6 mg PO DAILY PRN (Reason: constipation) Qty: 90 0RF cyclobenzaprine 10 mg tablet 10 mg PO TID Qty: 15 0RF ketorolac 10 mg tablet 10 mg PO Q8H 5 Days Qty: 15 0RF Follow Up/Referrals: Richard Mejía MD [Primary Care Provider] - Stand Alone Forms: [facility] [employer] Info Instructions
--- OUTSIDE RECORDS SUMMARY | 2023-09-13 20:25 | XMS_ITS | Clinical Summary ---
Author Organization [facility] Address [address] [place] [address] Care Team Providers Care Haircutter Name Role Phone Elsewhere, Pcp Primary Care Provider Unavailabl e Source Comments Patient records contain information from all sites at [facility]. For routine questions regarding patient records, call [phone] during business hours, M-F 8:00 AM - 5:00 PM Central Time. Record requests for emergency care only can be directed to [phone] at any time.[facility] Allergies No known active allergies Medications Medication [...] 08/29/2020 Diabetes Mellitus Type 2 Hyperglycemia 0 Overview (09/10/2022): A1C was 8.9 on 07/08/22 Hyperlipidemia Mixed 01/22/2010 Neuroma 02/27/2008 Other Psoriasis 05/25/2006 Immunizations Name Administration Dates Next Due Influenza, Injectable, Quadrivalent 11/14,11/29/2017,12/07/2016,2015 Influenza, Unspecified 12/29/2016 PPSV23 06/15/2011 Td, (Adult) Unspecified 02/14/1998 Tdap 11/24/2021,06/15/2011 [...] How often do you attend chur or gnosticism services? More than 4 times per year 11/24/2021 Do you belong to any clubs o r organizations such as jainism groups, unions, fraternal or athletic groups, or [...] Answer Date Recorded PHQ-2 Score 6 08/12/2022 [facility] of Occupat ional Health - Occupational [...] 04/29/2023 10:05 AM CDT Plan of Treatment Health Maintenance Due Date Last Done Comments [...] 07/22/2023 07/21/2022, 12/15, 07/01/2021, Additional history exists Influenza Vaccine (#1) 2023 , 11/30/2021, 12/18/2020, Additional history exists Dilated Eye Exam 04/27/2024 04/28/2023 Office Visit for Blood Press ure Check / Re-check 05/18/2024 05/19/2023 DTaP,Tdap,and Td Vaccines (3 - Td or Tdap) 11/25/2031 11/24/2021, 06/15/2011, 02/14/1998 Procedures Procedure Name Priority Date/Time Associated Diagnosis Comments BASIC METABOLIC PANEL, S/P STAT 07/21/2022 12:10 PM CDT from Last 3 Months or Most [...] Ren APRN C.N.P., D.N.P. LAB BLOOD ADD-ON [facility] [address] [place] [id number], [facility] CNFL [facility] in [address] [address] from Last 3 Months or Most Recently Relevant to Health Maintenance Care Teams Haircutter Relationship Specialty Start Date End Date Elsewhere, Pcp PCP - General Internal Medicine 11/24/21
--- OUTSIDE RECORDS SUMMARY | 2023-09-13 20:26 | XMS_ITS ---
Author Organization [facility] Address [address] [place] [address] Care Team Providers Care Macadam Raker Name Role Phone Unavailable Unavailable Unavailable Surgery Details Not on file Complications Check Surgery Details section. Procedure Estimated Blood Loss Check Surgery Details section. Procedure Findings Check Surgery Details section. Procedure Specimens Taken Check Surgery Details section.
--- OUTSIDE RECORDS SUMMARY | 2023-09-13 20:26 | XMS_ITS | Referral Summary ---
Author Organization [facility] Address [address] [place] [address] Care Team Providers Care Salad Bar Clerk Name Role Phone Elsewhere, Pcp Primary Care Provider Unavailabl e Source Comments Patient records contain information from all sites at [facility]. For routine questions regarding patient records, call [phone] during business hours, M-F 8:00 AM - 5:00 PM Central Time. Record requests for emergency care only can be directed to [phone] at any time.[facility] Allergies No known active allergies Medications Medication [...] How often do you attend chur or roman catholic services? More than 4 times per year 11/24/2021 Do you belong to any clubs o r organizations such as pentecostalism groups, unions, fraternal or athletic groups, or [...] Answer Date Recorded PHQ-2 Score 6 08/12/2022 [facility] of Occupat ional Health - [...] place to sleep or slept in a nursing home (including now)? No 11/24/2021 Nutrition Answer Date [...] 04/29/2023 10:05 AM CDT Plan of Treatment Not on file Procedures Procedure Name Priority Date/Time Associated Diagnosis [...] Ren APRN, C.N.P., D.N.P. LAB BLOOD ADD-ON Performing Organization Address City/State/[facility] Co de Phone Number [facility] [address] [place] [phone], [facility] CNFL [facility] in [address] [address] from Last 3 Months or Most Recently Relevant to Health Maintenance Care Teams Salad Bar Clerk Relationship Specialty Start Date End Date Elsewhere, Pcp PCP - General Internal Medicine 11/24/21
== END 2023-09-13 20:31 | disposition home or self-care (01) ==
LOC: ED 20:24
PROVIDERS: Emergency Provider Emergency Medicine Emergency Medical Services
DX: S61.012A Laceration without foreign body of left thumb without damage to nail, initial encounter (principal)
CPT/HCPCS: 12001; 99282; 99284

== ENCOUNTER 2023-10-29 18:40 | Emergency (ER) | payer MEDICAID, SELFPAY ==
[2023-10-29 18:50] VITALS: BP 146/73; PULSE 98; RESP 18; TEMP 36.7; O2SAT 99; BMI 30.9
--- NOTE | 2023-10-29 19:08 | ED.GENADULT ---
HPI - General Adult General Chief complaint: Cough Stated complaint: Cough, fever Time Seen by Provider: 10/29/23 18:58 History of Present Illness HPI narrative: This 58-year-old male comes in reporting cough and subjective fever over the past couple days. He states that his has respiratory symptoms at home also and was noted to be positive with COVID. He states that he is coughing especially at night such that he has difficulty sleeping. He does not report any shortness of breath. He arrives here with normal vital signs. Related Data Home Medications ?Medication ?Instructions ?Recorded ?Confirmed Insulin See Rx Instructions .Route .COMPLEX 10/03/21 06/13/23 metformin 1,000 mg tablet 1,000 mg 10/03/21 glyburide 5 mg tablet 10 mg PO BID 12/19/22 06/13/23 insulin NPH isoph U-100 human 100 20 unit subcut BID 12/19/22 06/13/23 unit/mL subcutaneous suspension (Humulin N NPH U-100 Insulin (isophane susp)) lisinopril 20 mg tablet 20 mg PO DAILY 12/19/22 06/13/23 metformin 1,000 mg tablet 1,000 mg PO BIDWMEAL 12/19/22 12/19/22 polyethylene glycol 3350 17 17 g PO DAILY PRN 12/19/22 06/13/23 gram/dose oral powder (Miralax) aspirin 81 mg tablet,delayed 81 mg PO DAILY diabetes mellitus 06/13/23 06/13/23 release clotrimazole-betamethasone 1 applic topical 06/13/23 %-0.05 % topical cream Previous Rx's ?Medication ?Instructions ?Recorded sennosides 8.6 mg capsule (senna) 8.6 mg PO DAILY PRN constipation 12/19/22 #90 caps cyclobenzaprine 10 mg tablet 10 mg PO TID #15 tabs 03/30/23 ketorolac 10 mg tablet 10 mg PO Q8H 5 days #15 tabs 03/30/23 cyclobenzaprine 10 mg tablet 10 mg PO TID #15 tabs 05/12/23 ketorolac 10 mg tablet 10 mg PO Q8H 5 days #15 tabs 05/12/23 codeine 10 mg-guaifenesin 100 mg/5 10 ml PO Q4-6H PRN #200 mL 06/13/23 mL oral liquid polymyxin B sulfate 10,000 1 drp ophthalmic (eye) Q3H 7 days 06/13/23 unit-trimethoprim 1 mg/mL eye drops #10 mL Allergies Allergy/AdvReac Type Severity Reaction Status Date / Time No Known Drug Allergies Allergy Verified 10/29/23 18:49 Review of Systems Status of ROS: Reports: 10 or more systems reviewed and unremarkable except as noted in History and below Narrative: Constitutional: No fevers, no weight gain or loss. Eyes: No discharge. No vision changes. HENT: No congestion, no sore throat, no ear pain. Cardiovascular: No chest pain, no palpitations. Respiratory: No shortness of breath, no wheezes. He reports a persistent uncontrolled cough. Gastrointestinal: No abdominal pain, no vomiting, no diarrhea. Genitourinary: No dysuria, no hematuria. Musculoskeletal: Normal range of motion. Skin: No rashes, no pruritis. Neurological: No dizziness, weakness, sensory change, speech change. Endo/Heme/Allergies: No bruising or bleeding. No polydipsia. Pysch: no suicidality, no anxiety, no insomnia. All other systems reviewed and are negative. [facility] Medical History Psoriasis ?L40.9 - Psoriasis, unspecified (ICD-10) Diabetes ?E11.9 - Type 2 diabetes mellitus without complications (ICD-10) Hypertension ?I10 - Essential (primary) hypertension (ICD-10) Social History (System 05/26/23 @ 11:08 by Shreya Crystal) What is your current living situation?: I presently have a place to live Problems where you live: no known problems Problems where you live details: no known problems In the past 12 months, utilities in danger of being shut off: yes In past 12 months, lack of transportation kept you from medical appts, meetings, work, or getting things needed for daily living: no In the past 12 mos, have been you worried that your food would run out before you had money to buy more?: sometimes true In the past 12 mos, the food you bought just didn't last and you didn't have money to buy more?: sometimes true Smoking Status: Never smoker Do you use any of these nicotine containing products: None Second hand tobacco smoke exposure: No How often do you have a drink containing alcohol: never AUDIT-C Alcohol total score: 0 Non-prescribed substance use: denies use Caffeine: Yes (Coffee) How often does anyone, including family, friends and others, physically hurt you: never How often does anyone, including family, friends and others, insult or talk down to you: never How often does anyone, including family, friends and others, threaten you with harm: never How often does anyone, including family, friends and others, scream or curse at you: never service: No Exam Narrative: Exam Narrative: Constitutional: Well-developed, well-nourished, no acute distress. HEENT: Normocephalic, atraumatic. Neck: Normal range of motion. Nontender. Supple. Heart: Regular. No murmurs. Normal rate. Intact distal pulses. Lungs: Clear to auscultation. No chest discomfort. No wheezes, rhonchi, or rales. Abdomen: Normal bowel sounds. Nontender. No rebound tenderness. Genitalia: Deferred. Back: No midline tenderness. Normal range of motion. Extremities: Normal range of motion. No injury. Skin: Intact. No rash. Warm. No erythema or pallor. Neurologic: No altered sensation. No weakness. Alert and oriented. Psychiatric: No suicidality. No anxiety or depression. No insomnia. Nursing notes and vitals signs are reviewed. Const: Vital Signs, click to edit/add: Vital Signs - 24 hr 10/29/23 18:50 Temperature 98.0 F Pulse Rate [Femora l] 98 Respiratory Rate 18 Blood Pressure [Ri ght Upper Arm] 146/73 H Pulse Oximetry 99 Oxygen Delivery Me thod Room Air Course Vital Signs Vital signs: Initial Vital Signs Respiratory Effort Normal, Spontaneous, Non-Labored 10/29/23 18:44 Respiratory Depth Normal 10/29/23 18:44 Vital Signs Temperature 98.0 F 10/29/23 18:50 Pulse Rate 98 10/29/23 18:50 Respiratory Rate 18 10/29/23 18:50 Blood Pressure 146/73 H 10/29/23 18:50 Pulse Oximetry 99 10/29/23 18:50 Oxygen Delivery Method Room Air 10/29/23 18:50 Temperature 98.0 F 10/29/23 18:50 Pulse Rate 98 10/29/23 18:50 Respiratory Rate 18 10/29/23 18:50 Blood Pressure 146/73 H 10/29/23 18:50 Pulse Oximetry 99 10/29/23 18:50 Oxygen Delivery Method Room Air 10/29/23 18:50 Medical Decision Making MDM Narrative Medical decision making narrative: This patient comes in with respiratory symptoms as described above. Nasal pharyngeal swab returns positive for COVID. The patient has normal vital signs and is in no acute distress. He does complain of persistent coughing especially at night. I did provide a prescription for Robitussin AC. He is okay to be discharged home and understands that he should return if worsening symptoms occur. Lab Data Labs: Lab Results 10/29/23 Range/Units 19:00 SARS-CoV-2 (PCR) POSITIVE SARS-CoV-2 A (Negative) Influenza Type A (PCR) Negative PCR FLU A (Negative) Influenza Type B (PCR) Negative PCR FLU B (Negative) RSV (PCR) Negative PCR RSV (Negative) Discharge Plan Discharge Clinical Impression: COVID-19 Patient Disposition: Home, Self-Care Condition: Unchanged Additional Instructions: Take medication as needed and indicated. Follow up with MD or return if worsening symptoms occur. Prescriptions: No Action cyclobenzaprine 10 mg tablet 10 mg PO TID Qty: 15 0RF ketorolac 10 mg tablet 10 mg PO Q8H 5 Days Qty: 15 0RF aspirin 81 mg tablet,delayed release (DR/EC) 81 mg PO DAILY clotrimazole-betamethasone 1-0.05 % cream topical polymyxin B sulf-trimethoprim 10,000 unit- 1 mg/mL drops 1 drp ophthalmic (eye) Q3H 7 Days Qty: 10 0RF Rx Instructions: while awake; do not exceed 6 doses in 24 hours codeine-guaifenesin 10-100 mg/5 mL liquid 10 ml PO Q4-6H PRNQty: 200 0RF metformin 1,000 mg tablet 1,000 mg Patient Comments: TAKE ONE TABLET BY MOUTH TWICE A DAY WITH MORNING AND EVENING MEALS Insulin See Rx Instructions .ROUTE .COMPLEX Rx Instructions: 10units each AM; 15 units at noc; polyethylene glycol 3350 [Miralax] 17 gram/dose powder 17 g PO DAILY PRN Humulin N NPH U-100 Insulin 100 unit/mL suspension 20 unit subcut BID metformin 1,000 mg tablet 1,000 mg PO BIDWMEAL lisinopril 20 mg tablet 20 mg PO DAILY glyburide 5 mg tablet 10 mg PO BID senna 8.6 mg capsule 8.6 mg PO DAILY PRN (Reason: constipation) Qty: 90 0RF cyclobenzaprine 10 mg tablet 10 mg PO TID Qty: 15 0RF ketorolac 10 mg tablet 10 mg PO Q8H 5 Days Qty: 15 0RF Follow Up/Referrals: Provider,Not a Local [Primary Care Provider] - Stand Alone Forms: [facility] Info Instructions
--- OUTSIDE RECORDS SUMMARY | 2023-10-29 19:14 | XMS_ITS | Clinical Summary ---
Author Organization [facility] Address [address] [place] [address] Care Team Providers Care Athletic Coordinator Name Role Phone Elsewhere, Pcp Primary Care Provider Unavailabl e Source Comments Patient records contain information from all sites at [facility]. For routine questions regarding patient records, call [phone] during business hours, M-F 8:00 AM - 5:00 PM Central Time. Record requests for emergency care only can be directed to [phone] at any time.[facility] Allergies No known active allergies Medications [...] How often do you attend chur or yarsani services? More than 4 times per year 11/24/2021 Do you belong to any clubs o r organizations such as uatsdin groups, unions, fraternal or athletic groups, or [...] Answer Date Recorded PHQ-2 Score 6 08/12/2022 [facility] - Occupational Stress [...] place to sleep or slept in a custodial (including now)? No 11/24/2021 Nutrition Answer Date [...] Exam 1966 FIT 1966 HIV Screening 1966 Hepatitis C Screening 1966 Urine Albumin 1966 Hepatitis B Vaccines (1 of 3 - 19+ 3-dose series) 1985 Pneumococcal vaccine (0-64 y ears) (2 of 2 - PCV) 06/14/2012 06/15/2011 Zoster Vaccines (1 of 2) 2016 Lipid (Cholesterol) Screening 07/01/2022, 08/27/2020, 02/20/2020 Hemoglobin A1C 10/08/2022 07/08/2022, 06/14, 08/27/2020, Additional history exists Depression Screening (Annual PHQ-2) 02/14/2023 Creatinine Level (Kidney Fun ction Test) 07/22/2023 07/21/2022, 12/24/2021, 07/01/2021, Additional history exists Potassium Level 07/22/2023 07/21/2022, 12/15, 07/01/2021, Additional history exists Sodium Level 07/22/2023 07/21/2022, 12/15, 07/01/2021, Additional history exists COVID-19 Vaccine (4 - 2022-2 4 season) 2023 12/18/2020, 05/31/2020, 05/10/2020 Influenza Vaccine (#1) 2023 , 11/30/2021, 12/18/2020, [...] Ren APRN, C.N.P., D.N.P. LAB BLOOD ADD-ON [facility] [address] [place] [id number], [facility] in [address] [address] from Last 3 Months or Most Recently Relevant to Health Maintenance Care Teams Athletic Coordinator Relationship Specialty Start Date End Date Elsewhere, Pcp PCP - General Internal Medicine 11/24/21
--- OUTSIDE RECORDS SUMMARY | 2023-10-29 19:14 | XMS_ITS | Referral Summary ---
Author Organization [facility] Address [address] [place] [address] Care Team Providers Care Second Time Worker Name Role Phone Elsewhere, Pcp Primary Care Provider Unavailabl e Source Comments Patient records contain information from all sites at [facility]. For routine questions regarding patient records, call [phone] during business hours, M-F 8:00 AM - 5:00 PM Central Time. Record requests for emergency care only can be directed to [phone] at any time.[facility] Allergies No known active allergies Medications [...] How often do you attend chur or voodoo services? More than 4 times per year 11/24/2021 Do you belong to any clubs o r organizations such as quaker groups, unions, fraternal or athletic groups, or [...] Answer Date Recorded PHQ-2 Score 6 08/12/2022 [facility] - Occupational [...] place to sleep or slept in a [place] [facility] [place] facility (including now)? No 11/24/2021 Nutrition Answer Date [...] D.N.P. LAB BLOOD ADD-ON Performing Organization Address City/State/[facility] Co de Phone Number [facility] [address] [place] [id number], [facility] in [address] [address] from Last 3 Months or Most Recently Relevant to Health Maintenance Care Teams Second Time Worker Relationship Specialty Start Date End Date Elsewhere, Pcp PCP - General Internal Medicine 11/24/21
--- OUTSIDE RECORDS SUMMARY | 2023-10-29 19:14 | XMS_ITS ---
Author Organization [facility] Address [address] [place] [address] Care Team Providers Care Econometrics Professor Name Role Phone Unavailable Unavailable Unavailable Surgery Details Not on file Complications Check Surgery Details section. Procedure Estimated Blood Loss Check Surgery Details section. Procedure Findings Check Surgery Details section. Procedure Specimens Taken Check Surgery Details section.
[2023-10-29 19:31] VITALS: BP 141/74; PULSE 86; RESP 14; O2SAT 97
[2023-10-29 19:44] LABS: PCR FLU A Negative PCR FLU A (Negative); PCR FLU B Negative PCR FLU B (Negative); PCR RSV Negative PCR RSV (Negative); SARS PCR* POSITIVE SARS-CoV-2 (Negative)
[2023-10-29 20:01] VITALS: BP 146/77; PULSE 87; RESP 16; O2SAT 98
[2023-10-29 20:18] VITALS: BP 146/73; PULSE 98; RESP 16; TEMP 36.7
== END 2023-10-29 20:15 | disposition home or self-care (01) ==
PROVIDERS: Emergency Provider Emergency Medicine Emergency Medical Services
DX: U07.1 COVID-19 (principal)
CPT/HCPCS: 87631; 99282; 99283; 99284

== ENCOUNTER 2023-11-17 19:15 | Emergency (ER) | payer MEDICAID, SELFPAY ==
[2023-11-17 19:34] VITALS: BP 164/91; PULSE 96; RESP 16; TEMP 37.1; O2SAT 99; BMI 30.9
--- NOTE | 2023-11-17 20:28 | CRLHL7_ITS ---
For Patients: As a result of the Century Cures Act, medical imaging exams and procedure reports are released immediately into your electronic medical record. You may view this report before your referring provider. If you have questions, please contact your health care provider. Indication: DIFFUSE ABD PAIN, WORSEN IN EPIGASTRIC Technique: CT abdomen/pelvis without IV contrast Comparison: CT abdomen/pelvis on December 18, 2022 Findings: Lower thorax: Unremarkable Abdomen/pelvis: The liver, gallbladder and biliary system, spleen, pancreas, adrenal glands, kidneys, ureters, bladder, seminal vesicles, prostate, and visualized external genitalia are unremarkable in appearance. 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 There is no evidence of bowel obstruction or inflammation. Postsurgical changes of appendectomy. No free fluid or free air. No abscess. No abdominopelvic lymphadenopathy. The vasculature is unremarkable. Soft tissue/musculoskeletal: Unremarkable Impression: No CT evidence of an acute process involving the abdomen or pelvis. Please note that all CT scans at this facility use dose modulation, iterative reconstruction, and/or weight-based dosing when appropriate to reduce radiation dose to as low as reasonably achievable. Dictated by Lamine Garza MD @ 11/17/2023 10:08:18 PM (Electronically Signed)
--- NOTE | 2023-11-17 20:34 | ED.ABDPAIN ---
HPI - Abdominal Pain General Date Seen: 11/17/23 Chief Complaint: Abdominal Pain Stated Complaint: stomach pain Time Seen by Provider: 11/17/23 20:08 Source: patient Mode of arrival: ambulatory Limitations: no limitations History of Present Illness HPI narrative: Patient is a 58-year-old male presenting to the emergency department for epigastric pain. States he is having discomfort throughout his abdomen but is worse in the epigastric region. Symptoms have been going on for the past 3-4 weeks. Of note weeks ago he was diagnosed with COVID. States that is a burning sensation in when he lays down flat he gets coughing fits. Has been taking guanfacine for his cough which has been helping. Has not been eating as much due to the associated nausea with it. Is not taking any thing for reflux at this time. Has had previous appendicitis surgery. Denies weakness, numbness, headache, vision changes, chest pain, shortness of breath, diarrhea, dysuria. Denies having symptoms like this before. No other concerns noted. Related Data Home Medications ?Medication ?Instructions ?Recorded ?Confirmed Insulin See Rx Instructions .Route .COMPLEX 10/03/21 06/13/23 metformin 1,000 mg tablet 1,000 mg 10/03/21 glyburide 5 mg tablet 10 mg PO BID 12/19/22 06/13/23 insulin NPH isoph U-100 human 100 20 unit subcut BID 12/19/22 06/13/23 unit/mL subcutaneous suspension (Humulin N NPH U-100 Insulin (isophane susp)) lisinopril 20 mg tablet 20 mg PO DAILY 12/19/22 06/13/23 metformin 1,000 mg tablet 1,000 mg PO BIDWMEAL 12/19/22 12/19/22 polyethylene glycol 3350 17 17 g PO DAILY PRN 12/19/22 06/13/23 gram/dose oral powder (Miralax) aspirin 81 mg tablet,delayed 81 mg PO DAILY diabetes mellitus 06/13/23 06/13/23 release clotrimazole-betamethasone 1 applic topical 06/13/23 %-0.05 % topical cream Previous Rx's ?Medication ?Instructions ?Recorded sennosides 8.6 mg capsule (senna) 8.6 mg PO DAILY PRN constipation 12/19/22 #90 caps cyclobenzaprine 10 mg tablet 10 mg PO TID #15 tabs 03/30/23 ketorolac 10 mg tablet 10 mg PO Q8H 5 days #15 tabs 03/30/23 cyclobenzaprine 10 mg tablet 10 mg PO TID #15 tabs 05/12/23 ketorolac 10 mg tablet 10 mg PO Q8H 5 days #15 tabs 05/12/23 codeine 10 mg-guaifenesin 100 mg/5 10 ml PO Q4-6H PRN #200 mL 06/13/23 mL oral liquid polymyxin B sulfate 10,000 1 drp ophthalmic (eye) Q3H 7 days 06/13/23 unit-trimethoprim 1 mg/mL eye drops #10 mL omeprazole 20 mg capsule,delayed 20 mg PO DAILY #20 caps 11/17/23 release Allergies Allergy/AdvReac Type Severity Reaction Status Date / Time No Known Drug Allergies Allergy Verified 10/29/23 18:49 Review of Systems Status of ROS Reports: 10 or more systems reviewed and unremarkable except as noted in History and below PFSH PFS Medical History Psoriasis ?L40.9 - Psoriasis, unspecified (ICD-10) Diabetes ?E11.9 - Type 2 diabetes mellitus without complications (ICD-10) Hypertension ?I10 - Essential (primary) hypertension (ICD-10) Social History What is your current living situation?: I presently have a place to live Problems where you live: no known problems Problems where you live details: no known problems In the past 12 months, utilities in danger of being shut off: yes In past 12 months, lack of transportation kept you from medical appts, meetings, work, or getting things needed for daily living: no In the past 12 mos, have been you worried that your food would run out before you had money to buy more?: sometimes true In the past 12 mos, the food you bought just didn't last and you didn't have money to buy more?: sometimes true Smoking Status: Never smoker Do you use any of these nicotine containing products: None Second hand tobacco smoke exposure: No How often do you have a drink containing alcohol: never AUDIT-C Alcohol total score: 0 Non-prescribed substance use: denies use Caffeine: Yes (Coffee) How often does anyone, including family, friends and others, physically hurt you: never How often does anyone, including family, friends and others, insult or talk down to you: never How often does anyone, including family, friends and others, threaten you with harm: never How often does anyone, including family, friends and others, scream or curse at you: never service: No Exam Narrative: Exam Narrative: Const: Well-nourished, Well-developed, in mild distress Eyes: PERRL, no conjunctival injection, and symmetrical lids HENT: Atraumatic external nose and ears. Moist mucous membranes. Neck: Symmetric, trachea midline, No thyromegaly. CVS: RRR, No murmurs or gallops. Peripheral pulses 2+ and equal in all extremities RESP: Unlabored respiratory effort. Clear to auscultation bilaterally. GI: Mild diffuse abdominal tenderness with moderate tenderness at the epigastric region. Nondistended, No rebound or guarding. MSK:Extremities w/o deformity, Normal Active ROM Skin: Warm, Dry. No rashes or lesions. Neuro: Normal Muscle tone, No focal neurological deficits. Psych: Awake, Alert, & Oriented x3. Appropriate mood and affect. Const: Vital Signs, click to edit/add: Vital Signs - 24 hr 11/17/23 19:34 Temperature 98.8 F Pulse Rate [Pulse Oximeter] 96 Respiratory Rate 16 Blood Pressure [Ri ght Upper Arm] 164/91 H Pulse Oximetry 99 Oxygen Delivery Me thod Room Air Course Vital Signs Vital signs: Initial Vital Signs Temperature 98.8 F 11/17/23 19:34 Temperature Source Temporal Artery Scan 11/17/23 19:34 Pulse Rate 96 11/17/23 19:34 Pulse Strength 2+ Slightly Diminished 11/17/23 19:34 Respiratory Rate 16 11/17/23 19:34 Blood Pressure 164/91 H 11/17/23 19:34 Blood Pressure Mean 115 H 11/17/23 19:34 Blood Pressure Position Sitting 11/17/23 19:34 Pulse Oximetry 99 11/17/23 19:34 Oxygen Delivery Method Room Air 11/17/23 19:34 Vital Signs Temperature 98.8 F 11/17/23 19:34 Pulse Rate 96 11/17/23 19:34 Respiratory Rate 16 11/17/23 19:34 Blood Pressure 164/91 H 11/17/23 19:34 Pulse Oximetry 99 11/17/23 19:34 Oxygen Delivery Method Room Air 11/17/23 19:34 Temperature 98.8 F 11/17/23 19:34 Pulse Rate 96 11/17/23 19:34 Respiratory Rate 16 11/17/23 19:34 Blood Pressure 164/91 H 11/17/23 19:34 Pulse Oximetry 99 11/17/23 19:34 Oxygen Delivery Method Room Air 11/17/23 19:34 Medications Administered Medications: Discontinued Medications Generic Name Dose Route Start Last Admin Trade Name Freq PRN Reason Stop Dose Admin Lactated Ringer's 1,000 mls @ 1,000 mls/hr 11/17/23 20:28 11/17/23 21:01 Lactated Ringers 1000 Ml IV 11/17/23 21:27 1,000 mls/hr .Q1H ONE Administration Lidocaine/Aluminum/Magnesium/Simeth 30 ml 11/17/23 20:28 11/17/23 21:04 Gi Cocktail (Visc Lido/Antacid) 30 Ml PO 11/17/23 20:29 30 ml ONCE ONE Administration Metoclopramide HCl 10 mg 11/17/23 21:48 11/17/23 21:54 Metoclopramide Hcl 5 Mg/Ml Inj IVP 11/17/23 21:49 10 mg ONCE ONE Administration Ondansetron HCl 4 mg 11/17/23 20:28 11/17/23 21:02 Ondansetron 2 Mg/Ml Inj IVP 11/17/23 20:29 4 mg ONCE ONE Administration MDM - Abdominal Pain MDM Narrative Medical decision making narrative: Patient is a 58-year-old male presenting for abdominal pain. Based on his description of epigastric pain and nighttime cough I do think he is having GERD. He is having some mild diffuse abdominal discomfort though so I will order CT scan to rule out other causes of his symptoms. Also order CBC, CMP, lipase, troponin, EKG, urinalysis. Given 1 L of fluids in some Zofran for his nausea. Also gave a GI cocktail for symptoms. Symptoms improved with a GI cocktail. Lab work returned with the blood sugar of 317. Will order hemoglobin HbA1c to better evaluate how uncontrolled his diabetes is. He does state he states his medications as prescribed and he follows up with [facility]. Lipase returned showing no concerning abnormalities. Urinalysis shows no signs of UTI. Troponin EKG shows no concerning findings. CT scan returned also showing no concerning abnormalities. After the CT scan he was having some nausea though on Reglan was ordered. At this time he is doing much better and I believe he is safe for discharge. Will prescribe him some Prilosec. Likely is recent COVID diagnosis exacerbated his underlying reflux. He is agreeable to this plan. Lab Data Labs: Lab Results 11/17/23 11/17/23 11/17/23 Range/Units 20:29 21:06 21:20 WBC 6.07 (4.50-11.00) K/uL RBC 4.86 (4.30-5.90) m/uL Hgb 14.1 (13.5-17.5) gm/dL Hct 40.7 (37.0-53.0) % MCV 84 (80-100) fL MCH 29 (26-34) pg MCHC 35 (32-36) gm/dL RDW Coeff of Brendan 12.6 (11.5-15.5) % Plt Count 223 (140-440) K/uL Neut % (Auto) 60.8 (42.0-72.0) % Lymph % (Auto) 26.2 (20-44) % Stephenson % (Auto) 9.7 (0.0-11.0) % Eos % (Auto) 2.3 (0.0-7.0) % Baso % (Auto) 0.7 (0.0-3.0) % Neut # (Auto) 3.69 (1.7-7.0) K/uL Lymph # (Auto) 1.59 (0.90-2.90) K/uL Stephenson # (Auto) 0.60 (0.00-0.90) K/UL Eos # (Auto) 0.14 (0.00-0.50) K/uL Baso # (Auto) 0.04 (0.00-0.30) K/uL Abs Immat Gran (auto) 0.02 (0.00-0.30) K/uL Imm/Tot Granulo (auto) 0.3 % Sodium 137 (135-149) mmol/L Potassium 4.8 (3.6-5.1) mmol/L Chloride 98 (96-114) mmol/L Carbon Dioxide 30 (20-32) mmol/L Anion Gap 9 (7-15) mEq/L BUN 39 H (7-30) mg/dL Creatinine 1.2 (0.5-1.5) mg/dL Estimated Creat Clear 56.87 Estimated GFR 71 ml/min Glucose 317 H (60-115) mg/dL Hemoglobin A1c 11.2 H (0-5.6) % Calcium 10.2 (8.4-10.6) mg/dL Total Bilirubin 0.5 (0.1-1.5) mg/dL AST 25 (12-35) U/L ALT 33 (4-50) U/L Alkaline Phosphatase 142 (40-150) U/L Total Protein 8.2 (6.0-8.3) g/dL Albumin 4.9 (3.3-5.0) g/dL Lipase 87 (23-300) U/L Urine Color Yellow (Yellow) Urine Appearance Clear (Clear) Urine pH 5.5 (5.0-8.5) Ur Specific Warner 1.015 (1.000-1.030) Urine Protein 3+ A (Negative) Urine Glucose (UA) 3+ A (Negative) Urine Ketones Negative (Negative) Urine Blood 1+ A (Negative) Urine Nitrite Negative (Negative) Urine Bilirubin Negative (Negative) Urine Urobilinogen 0.2 (0.2-1.0) Ur Leukocyte Esterase Negative (Negative) Urine RBC 0-2 (0-2) Urine WBC 0-2 (0-5) Ur Squamous Epith Cells Few (None-Few) Urine Bacteria None (None) Lab Acknowledgement POC Troponin I 0.00 L (0.01-0.04) ng/ml 11/17/23 Range/Units 21:35 WBC (4.50-11.00) K/uL RBC (4.30-5.90) m/uL Hgb (13.5-17.5) gm/dL Hct (37.0-53.0) % MCV (80-100) fL MCH (26-34) pg MCHC (32-36) gm/dL RDW Coeff of Brendan (11.5-15.5) % Plt Count (140-440) K/uL Neut % (Auto) (42.0-72.0) % Lymph % (Auto) (20-44) % Stephenson % (Auto) (0.0-11.0) % Eos % (Auto) (0.0-7.0) % Baso % (Auto) (0.0-3.0) % Neut # (Auto) (1.7-7.0) K/uL Lymph # (Auto) (0.90-2.90) K/uL Stephenson # (Auto) (0.00-0.90) K/UL Eos # (Auto) (0.00-0.50) K/uL Baso # (Auto) (0.00-0.30) K/uL Abs Immat Gran (auto) (0.00-0.30) K/uL Imm/Tot Granulo (auto) % Sodium (135-149) mmol/L Potassium (3.6-5.1) mmol/L Chloride (96-114) mmol/L Carbon Dioxide (20-32) mmol/L Anion Gap (7-15) mEq/L BUN (7-30) mg/dL Creatinine (0.5-1.5) mg/dL Estimated Creat Clear Estimated GFR ml/min Glucose (60-115) mg/dL Hemoglobin A1c (0-5.6) % Calcium (8.4-10.6) mg/dL Total Bilirubin (0.1-1.5) mg/dL AST (12-35) U/L ALT (4-50) U/L Alkaline Phosphatase (40-150) U/L Total Protein (6.0-8.3) g/dL Albumin (3.3-5.0) g/dL Lipase (23-300) U/L Urine Color (Yellow) Urine Appearance (Clear) Urine pH (5.0-8.5) Ur Specific Warner (1.000-1.030) Urine Protein (Negative) Urine Glucose (UA) (Negative) Urine Ketones (Negative) Urine Blood (Negative) Urine Nitrite (Negative) Urine Bilirubin (Negative) Urine Urobilinogen (0.2-1.0) Ur Leukocyte Esterase (Negative) Urine RBC (0-2) Urine WBC (0-5) Ur Squamous Epith Cells (None-Few) Urine Bacteria (None) Lab Acknowledgement Test Added POC Troponin I (0.01-0.04) ng/ml Imaging Data CT scan abdomen and pelvis: Attestation: I have reviewed the pertinent imaging results. Radiologist's impression: No CT evidence of an acute process involving the abdomen or pelvis. Please note that all CT scans at this facility use dose modulation, iterative reconstruction, and/or weight-based dosing when appropriate to reduce radiation dose to as low as reasonably achievable. Dictated by Lamine Garza MD @ 11/17/2023 10:08:18 PM ECG Data Attestation: I personally reviewed and interpreted this ECG as follows: Prior ECG tracings: available for review Interpretation: Normal sinus rhythm with a rate of 89 beats per minute, normal intervals, normal axis, no ST or T-wave abnormalities. Appears similar previous EKG on file Discharge Plan Discharge Clinical Impression: Gastric reflux Diabetes Qualifiers: Diabetes mellitus type: other specified (including ALPHONSE) Diabetes mellitus [facility] insulin use: unspecified intermediate manager insulin use status Diabetes mellitus complication status: without complication Qualified Code(s): E13.9 - Other specified diabetes mellitus without complications Patient Disposition: Home, Self-Care Condition: Improved Instructions: GERD (Gastroesophageal Reflux Disease) (DC) Additional Instructions: Your symptoms are from gastric reflux. I prescribed your Prilosec to help with this. Also you have poorly controlled diabetes and you should follow-up with [facility]. Return for new or worsening symptoms. Prescriptions: New omeprazole 20 mg capsule,delayed release(DR/EC) 20 mg PO DAILY Qty: 20 2RF No Action cyclobenzaprine 10 mg tablet 10 mg PO TID Qty: 15 0RF ketorolac 10 mg tablet 10 mg PO Q8H 5 Days Qty: 15 0RF aspirin 81 mg tablet,delayed release (DR/EC) 81 mg PO DAILY clotrimazole-betamethasone 1-0.05 % cream topical polymyxin B sulf-trimethoprim 10,000 unit- 1 mg/mL drops 1 drp ophthalmic (eye) Q3H 7 Days Qty: 10 0RF Rx Instructions: while awake; do not exceed 6 doses in 24 hours codeine-guaifenesin 10-100 mg/5 mL liquid 10 ml PO Q4-6H PRNQty: 200 0RF metformin 1,000 mg tablet 1,000 mg Patient Comments: TAKE ONE TABLET BY MOUTH TWICE A DAY WITH MORNING AND EVENING MEALS Insulin See Rx Instructions .ROUTE .COMPLEX Rx Instructions: 10units each AM; 15 units at noc; polyethylene glycol 3350 [Miralax] 17 gram/dose powder 17 g PO DAILY PRN Humulin N NPH U-100 Insulin 100 unit/mL suspension 20 unit subcut BID metformin 1,000 mg tablet 1,000 mg PO BIDWMEAL lisinopril 20 mg tablet 20 mg PO DAILY glyburide 5 mg tablet 10 mg PO BID senna 8.6 mg capsule 8.6 mg PO DAILY PRN (Reason: constipation) Qty: 90 0RF cyclobenzaprine 10 mg tablet 10 mg PO TID Qty: 15 0RF ketorolac 10 mg tablet 10 mg PO Q8H 5 Days Qty: 15 0RF Follow Up/Referrals: Provider,Not a Local [Primary Care Provider] - Stand Alone Forms: [facility] Info Inst[facility]
[2023-11-17] MEDS: LACTATED RINGERS 1000 ML 1,000 ML IV (21:01)
[2023-11-17] MEDS: ONDANSETRON 2 MG/ML inj 4 MG IVP (21:02)
[2023-11-17] MEDS: GI COCKTAIL (VISC LIDO/ANTACID) 30 ML PO (21:04)
[2023-11-17 21:13] LABS: Basophils Absolute Auto 0.04 K/uL (0.00-0.30); Basophils Percent Auto 0.7 % (0.0-3.0); Eosinophils Absolute Auto 0.14 K/uL (0.00-0.50); Eosinophils Percent Auto 2.3 % (0.0-7.0); Hematocrit 40.7 % (37.0-53.0); Hemoglobin* 14.1 gm/dL (13.5-17.5); Immature Granulocytes Abs Auto 0.02 K/uL (0.00-0.30); Immature Granulocytes Pct Auto 0.3 %; Lymphocytes Absolute Auto 1.59 K/uL (0.90-2.90); Lymphocytes Percent Auto 26.2 % (20-44); Mean Corpuscular HGB Conc 35 gm/dL (32-36); Mean Corpuscular Hemoglobin 29 pg (26-34); Mean Corpuscular Volume 84 fL (80-100); Monocytes Percent Auto 9.7 % (0.0-11.0); Neutrophils Absolute Auto 3.69 K/uL (1.7-7.0); Neutrophils Percent Auto 60.8 % (42.0-72.0); Platelet Count* 223 K/uL (140-440); RDW Coefficient of Variation % 12.6 % (11.5-15.5); Red Blood Count 4.86 m/uL (4.30-5.90); Slide Review Reflex No; White Blood Count* 6.07 K/uL (4.50-11.00)
[2023-11-17 21:25] LABS: Albumin* 4.9 g/dL (3.3-5.0)
[2023-11-17 21:26] LABS: Appearance Urine Clear (Clear); Bilirubin Urine Negative (Negative); Blood Urine 1+ (Negative); Color Urine Yellow (Yellow); Glucose Urine 3+ (Negative); Ketones Urine Negative (Negative); Leukocyte Esterase Urine Negative (Negative); Nitrite Urine Negative (Negative); Protein Urine 3+ (Negative); Specific Gravity Urine 1.015 (1.000-1.030); Urobilinogen Urine 0.2 (0.2-1.0); pH Urine 5.5 (5.0-8.5)
[2023-11-17 21:26] LABS: Chloride* 98 mmol/L (96-114); Potassium* 4.8 mmol/L (3.6-5.1); Sodium* 137 mmol/L (135-149)
[2023-11-17 21:28] LABS: Alkaline Phosphatase* 142 U/L (40-150); Anion Gap 9 mEq/L (7-15); Aspartate Amino Transferase* 25 U/L (12-35); Bilirubin Total* 0.5 mg/dL (0.1-1.5); Blood Urea Nitrogen* 39 mg/dL (7-30); Carbon Dioxide* 30 mmol/L (20-32); Creatinine* 1.2 mg/dL (0.5-1.5); Est. Creatinine Clearance* 56.87; Estimated Glomerular Filt Rate 71 ml/min; Lipase* 87 U/L (23-300); Total Protein* 8.2 g/dL (6.0-8.3)
[2023-11-17 21:29] LABS: Alanine Aminotransferase* 33 U/L (4-50); Calcium* 10.2 mg/dL (8.4-10.6); Glucose* 317 mg/dL (60-115)
--- OUTSIDE RECORDS SUMMARY | 2023-11-17 21:40 | XMS_ITS ---
Author Organization [facility] Address [address] [place] [address] Care Team Providers Care Sorting Machine Attendant Name Role Phone Unavailable Unavailable Unavailable Surgery Details Not on file Complications Check Surgery Details section. Procedure Estimated Blood Loss Check Surgery Details section. Procedure Findings Check Surgery Details section. Procedure Specimens Taken Check Surgery Details section.
--- OUTSIDE RECORDS SUMMARY | 2023-11-17 21:40 | XMS_ITS | Clinical Summary ---
Author Organization [facility] Address [address] [place] [address] Care Team Providers Care Wood Sash And Frame Carpenter Name Role Phone Elsewhere, Pcp Primary Care Provider Unavailabl e Source Comments Patient records contain information from all sites at [facility]. For routine questions regarding patient records, call [phone] during business hours, M-F 8:00 AM - 5:00 PM Central Time. Record requests for emergency care only can be directed to [phone] at any time.[facility] Allergies No known active allergies Medications [...] How often do you attend chur or jain services? More than 4 times per year 11/24/2021 Do you belong to any clubs o r organizations such as christian groups, unions, fraternal or athletic groups, or [...] Answer Date Recorded PHQ-2 Score 6 08/12/2022 [facility] - Occupational Stress [...] place to sleep or slept in a fdc (including now)? No 11/24/2021 Nutrition Answer Date [...] Additional history exists COVID-19 Vaccine (4 - 2023-2 5 season) 2023 12/18/2020, 05/31/2020, 05/10/2020 Influenza Vaccine [...] Ren APRN, C.N.P., D.N.P. LAB BLOOD ADD-ON [facility] [address] [place] [id number], [facility] in [address] [address] from Last 3 Months or Most Recently Relevant to Health Maintenance Care Teams Wood Sash And Frame Carpenter Relationship Specialty Start Date End Date Elsewhere, Pcp PCP - General Internal Medicine 11/24/21
--- OUTSIDE RECORDS SUMMARY | 2023-11-17 21:40 | XMS_ITS | Referral Summary ---
Author Organization [facility] Address [address] [place] [address] Care Team Providers Care Shoe Planner Name Role Phone Elsewhere, Pcp Primary Care Provider Unavailabl e Source Comments Patient records contain information from all sites at [facility]. For routine questions regarding patient records, call [phone] during business hours, M-F 8:00 AM - 5:00 PM Central Time. Record requests for emergency care only can be directed to [phone] at any time.[facility] Allergies No known active allergies Medications [...] How often do you attend chur or sikh services? More than 4 times per year [...] Answer Date Recorded PHQ-2 Score 6 08/12/2022 [facility] - Occupational [...] place to sleep or slept in a mcc (including now)? No 11/24/2021 Nutrition Answer Date [...] D.N.P. LAB BLOOD ADD-ON Performing Organization Address City/State/[facility] Co de Phone Number [facility] [address] [place] [id number], [facility] in [address] [address] from Last 3 Months or Most Recently Relevant to Health Maintenance Care Teams Shoe Planner Relationship Specialty Start Date End Date Elsewhere, Pcp PCP - General Internal Medicine 11/24/21
[2023-11-17 21:54] LABS: Hemoglobin A1C* 11.2 % (0-5.6)
[2023-11-17] MEDS: METOCLOPRAMIDE HCL 5 MG/ML INJ 10 MG IVP (21:54)
[2023-11-17 21:59] LABS: RBC Urine 0-2 (0-2); Squamous Epithelial Cell Urine Few (None-Few); WBC Urine 0-2 (0-5)
[2023-11-17 22:00] VITALS: PULSE 104; O2SAT 99
[2023-11-17 22:15] VITALS: BP 139/76; PULSE 98; O2SAT 98
[2023-11-17 22:30] VITALS: PULSE 96; O2SAT 98
[2023-11-17] MEDS: OMEPRAZOLE 20 MG CAPSULE DR PO (22:57)
== END 2023-11-17 23:16 | disposition home or self-care (01) ==
PROVIDERS: Emergency Provider Student in an Organized Health Care Education/Training Program
DX: K21.9 Gastro-esophageal reflux disease without esophagitis (principal); E13.9 Other specified diabetes mellitus without complications
CPT/HCPCS: 36415; 74177; 80053; 81001; 83036; 83690; 84484; 85025; 93005; 96374; 96375; 99283; 99284; A9270; J2405; J2765; J7120; Q9967

== ENCOUNTER 2024-02-25 18:57 | Emergency (ER) | payer OTHER, SELFPAY ==
--- OUTSIDE RECORDS SUMMARY | 2024-02-25 18:59 | XMS_ITS | Clinical Summary ---
Author Organization [facility] Address [address] [place] [address] Care Team Providers Care Vice President Of Talent Management Name Role Phone Viral Silva M.D. Primary Care Provider [phone] Source Comments Patient records contain information from all sites at [facility]. For routine questions regarding patient records, call [phone] during business hours, M-F 8:00 AM - 5:00 PM Central Time. Record requests for emergency care only can be directed to [phone] at any time.[facility] Allergies No known active allergies Medications blood sugar diagnostic (OneTouch Ultra Test) strips 1 strip by other route 3 (three) times a day. 8 Active fluocinonide (LIDEX) 0.05 % ointment Apply 1 application topically 2 (two) times a day. 8 Active docusate sodium (COLACE) 100 mg capsule TAKE 1 CAPSULE (100 MG) BY MOUTH ONCE DAILY FOR 14 DAYS. Active aspirin [address] tablet 81 mg. Active polyethylene glycol (MIRALAX) 17 gram/dose oral powder MIX 17GM IN 80Z LIQUID AND GIVE VIA J-TUBE TWICE A DAY 2 Active metFORMIN (Glucophage) 1,000 mg tablet Take 1 tablet (1,000 mg total) by mouth 2 (two) times a day. 180 tablet 3 4 Active triamcinolone (Kenalog) 0.5 % ointment Apply 1 Application topically 2 (two) times a day. Apply to head. 80 g 1 4 Active insulin NPH 100 unit/mL vial Inject 22 Units under the skin 2 (two) times a day with meals. 22 units in the Am and 20 3 mL 3 4 Active lisinopriL 20 mg tablet Take 1 tablet (20 mg total) by mouth daily. 90 tablet 3 4 Active triamcinolone (Kenalog) 0.1 % cream Apply topically 2 (two) times a day. 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 Quality (D5) 01/19/2024 Clinical Communication Department of [facility], [facility], [address] [address] Rosa Amado, R.N. Quality (D5) 01/07/2024 Orders Only Department of [facility], [address] [address] Viral Silva M.D. Screening Cancer Colon 01/06/2024 3:00 PM WATER RESOURCES PROJECT MANAGER Office Visit Department of [facility], [facility], [address] [address] Viral Silva M.D. Diabetes Mellitus Type 2 (HCC) (Primary Dx); Hypertension Essential Primary; Hyperlipidemia; Screening Cancer Colon; Obesity Body Mass Index 30-39.9 Adult; Other Psoriasis from Last 3 Months Immunizations Name Administration Dates Next Due Influenza, Injectable, Quadrivalent 11/16,11/30/2021,11/29/2017,2016,12/09/2015 Influenza, Seasonal, Injectable 12/07/2023 Influenza, Unspecified 12/29/2016 PPSV23 06/15/2011 Td, (Adult) [...] any clubs o r organizations such as taoist groups, unions, fraternal or athletic groups, or [...] Answer Date Recorded PHQ-2 Score 6 08/12/2022 [facility] - Occupational Stress Questionnaire Answer Date Recorded [...] now)? No 11/24/2021 Nutrition Answer Date Recorded On average, how many serving s of fruits and vegetables do you eat per day (serving size is equal to 1 cup or approximately the size of a tennis ball)? 2-3 11/24/2021 Dental Answer Date Recorded Dental: Regular Dentist No 11/25/19 22 Employment Answer Date Recorded Employment status Employed and actively working without restrictions 11/24/2021 Education Answer Date Recorded What is the highest level of school you have completed or the highest degree you have received? 9th grade 11/24/2021 Sex and Gender Information Value Date Recorded Sex Assigned at Male 08/04/2022 2:54 PM CDT Legal Sex Male 1:14 PM CDT Gender Identity Not on file Sexual Orientation Not on file Last Filed Vital Signs Vital Sign Reading Time Taken Comments Blood Pressure 137/80 01/06/2024 3:08 PM WATER RESOURCES PROJECT MANAGER Pulse 99 01/06/2024 3:08 PM WATER RESOURCES PROJECT MANAGER Temperature 36.4 C (97.5 F) 01/06/2024 3:01 PM WATER RESOURCES PROJECT MANAGER Respiratory Rate 16 01/06/2024 3:01 PM WATER RESOURCES PROJECT MANAGER Oxygen Saturation 98% 09/10/2022 11:43 AM CDT Inhaled Oxygen Concentration - - Weight 80.9 kg (178 lb 5.6 oz) 01/06/2024 3:01 P M WATER RESOURCES PROJECT MANAGER Height 164 cm (5' 4.57) 01/06/2024 3:01 PM WATER RESOURCES PROJECT MANAGER Body Mass Index 30.08 01/06/2024 3:01 PM WATER RESOURCES PROJECT MANAGER Plan of Treatment Health Maintenance Due Date Last Done Comments CT Colonography 1966 Cologuard 1966 Colonoscopy 1966 Colorectal Cancer Screening 1966 FIT 1966 HIV Screening 1966 Hepatitis C Screening 1966 Urine Albumin 1966 Hepatitis B Vaccines (1 of 3 - 19+ 3-dose series) 1985 Pneumococcal vaccine (50+ years) (2 of 2 - PCV) 06/14/2012 06/15/2011 Zoster Vaccines (1 of 2) 2016 Lipid (Cholesterol) Screening 07/01/2022 07/01/2021, 08/27/2020, 02/20/2020 Hemoglobin A1C 10/08/2022 07/08/2022, 06/14, 08/27/2020, Additional history exists Creatinine Level (Kidney Function Test) 07/22/2023 07/21/2022, 12/24/2021, 07/01/2021, Additional history exists Potassium Level 07/22/2023 07/21/2022, 12/15, 07/01/2021, Additional history exists Sodium Level 07/22/2023 07/21/2022, 12/15, 07/01/2021, Additional history exists COVID-19 Vaccine ( season) 2023 12/18/2020, 05/31/2020, 05/10/2020 Depression Screening (Annual PHQ-2) 02/15/2024 Dilated Eye Exam 04/27/2024 04/28/2023 Diabetic Office Visit with Foot Exam 01/05/2025 01/06/2024 Office Visit for Blood Pressure Check / Re-check 01/05/2025 01/06/2024 Visit: Chronic Disease, age 18+ 01/05/2025 01/06/2024, 01/06/2024 DTaP,Tdap,and Td Vaccines (3 - Td or Tdap) 11/25/2031 11/24/2021, 06/15/2011, 02/14/1998 Influenza Vaccine Completed 12/07/2023, , 11/30/2021, Additional history exists HPV Vaccines Aged Out No longer eligi ble based on patient's age to complete this topic IPV Vaccines Aged Out No longer eligi ble based on patient's age to complete this topic Procedures Procedure Name Priority Date/Time Associated Diagnosis [...] Grant Ren APRN, C.N.P., D.N.P. LAB BLOOD AD D-ON Final Result [facility] [address] [place] [id number], [facility] in [address] [address] from Last 3 Months or Most Recently Relevant to Health Maintenance Insurance [employer] Care Teams Vice President Of Talent Management Relationship Specialty Start Date End Date Viral Silva M.D. [address] [place] [address] [place] [phone] PCP - General Family Medicine 01/05/24
--- OUTSIDE RECORDS SUMMARY | 2024-02-25 18:59 | XMS_ITS | Continuity of Care Document ---
Author Name NwKENN User [id number] llowed Address Unknown Organization Unknown Address Unknown Procedures FILTER APPLIED:Only known Procedures with Onset Date within the last 5 years Procedure Date Procedure Provider Additiona l Information Status EMERGENCY DEPT VISIT LOW MDM (57650) Completed MANUAL THERAPY 1/> REGIONS (66427) Completed PT EVAL LOW COMPLEX 20 MIN (86800) Completed EMERGENCY DEPT VISIT LOW MDM (78664) Completed EMERGENCY DEPT VISIT MOD MDM (02214) Completed THER/PROPH/DIAG INJ SC/IM (03004) Completed EMERGENCY DEPT VISIT LOW MDM (73836) Completed CT HEAD/BRAIN W/O DYE (26067) Completed CT NECK SPINE W/O DYE (51591) Completed EMERGENCY DEPT VISIT LOW MDM (04235) Completed EMERGENCY DEPT VISIT MOD MDM (14048) Completed GLUCOSE BLOOD TEST (24188) Completed ANES COMP EMERGENCY COND (24143) Completed ANESTH SURG LOWER ABDOMEN (32924) Completed EMERGENCY DEPT VISIT HI MDM (29245) Completed LAPS SURG APPENDEC (85781) Completed ASSAY OF LACTIC ACID (88104) Completed ASSAY SPEC XCP UR BREATH IA (07249) Completed URINALYSIS AUTO W/SCOPE (78117) Completed HEPATIC FUNCTION PANEL (55483) Completed METABOLIC PANEL TOTAL CA (63328) Completed ROUTINE VENIPUNCTURE (58848) Completed CT ABD PELV W/CONTRAST (13331) Completed ELECTROCARDIOGRAM TRACING (38595) Completed ASSAY OF LIPASE (12998) Completed C-REACTIVE PROTEIN (76967) Completed RESP VIRUS 3-5 TARGETS (92033) Completed COMPLETE CBC W/AUTO DIFF WBC (53930) Completed ECHO EXAM OF ABDOMEN (93761) Completed TTE F-UP OR LMTD (22879) Completed EMERGENCY DEPT VISIT MOD MDM (01968) Completed CRITICAL CARE FIRST HOUR (00855) Completed US EXAM CHEST (43954) Co mpleted ELECTROCARDIOGRAM TRACING (29137) Completed X-RAY EXAM CHEST 2 VIEWS (47505) Completed EMERGENCY DEPT VISIT LOW MDM (78343) Completed X-RAY EXAM CHEST 2 VIEWS (81212) Completed Encounters FILTER APPLIED:Only known Encounters with Admission Date within the last 5 years Encounter Location Admission Discharge Billing Code [facility] Alec [facility] Outpatient Cara [place] [facility] Matt [facility] Emergency Simon skaggs Outpatient Yas JUÁREZ [facility] Emergency Matt Sampson Outpatient Yas agrawal [place] [facility] Outpatient Siena Varela ustafson Emergency Matt Sampson
--- OUTSIDE RECORDS SUMMARY | 2024-02-25 18:59 | XMS_ITS | Encounter Summary ---
Author Organization [facility] Address [address] [place] [address] Care Team Providers Care Coach Cleaner Name Role Phone Viral Silva M.D. Primary Care Provider + [phone] Reason for Visit * Reason Onset Date Comments Quality 01/19/2024 D5 Encounter Details Date Type Department Care Team (Late st Contact Info) Description 01/19/2024 Clinical Communication Department of Family Medicine, [facility], in [address] [address] Rosa Amado, RLenoreN. Quality (D5) Social History Tobacco Use Types Packs/Day Years [...] often do you attend chur ch or scientologist services? More than 4 times per year 11/24/2021 Do you belong to any clubs o r organizations such as pentecostal groups, unions, fraternal or athletic groups, or [...] Answer Date Recorded PHQ-2 Score 6 08/12/2022 [facility] of Occupat ional Health - [...] place to sleep or slept in a penitentiary (including now)? No 11/24/2021 Nutrition Answer Date [...] on file documented as of this encounter Miscellaneous Notes * Telephone Encounter - Pat Judd R.N. - 01/23/2024 2:44 PM CST Left message for patient to return call to clinic. Does the patient need to speak to nursing? yes Action needed: Per Dr. Silva: Please verify if the patient takes methotrexate that prescribed by another physician. I do not have on file that he has been taking it currently. Has not been prescribedrecently as well. Patient is due for lab work and an appointment w/ PCP ENSATION DIRECTOR * Telephone Encounter - Rosa Amado R.N. - 01/19/2024 11:25 AM COMPENSATION DIRECTOR Primary Care Diabetes Review Completed patient diabetes review on 01/19/2024, for Narciso Elmore, a 58 y.o. male, currently paneled to Viral Silva M.D. Summary of Chart Review Recent Labs 07/08/22 1409 07/01/21 0940 HGBA1C 8.9 H 9.2 H BP Readings from Last 2 Encounters: 01/06/24 137/80 05/19/23 119/72 Social History Tobacco Use Smoking Status Never Smokeless Tobacco Never Upon today's chart review, patient is not meeting the following D5 criteria: A1C LDL/statin use Patient does not have a visit scheduled in Primary Care within the next 3 months. Recent Updates to Diabetes Management Plan The following recommendations regarding patient's diabetes management plan have been made within the last 12 months: No changes to patient's diabetes management plan have been recommended within the last 12 months. Following provider visit on 01/06/24 it was recommended for patient to have lab workcompleted. Patient has not yet had lab work completed to determine next course of recommendations. Recommended follow-up RN will: continue to monitor patient in 2 weeks . Additional Notes Additional notes: None ENSATION DIRECTOR documented in this encounter Plan of Treatment Not on file documented as of this encounter Visit Diagnoses Not on filedocumented in this encounter Additional Health Concerns Infection Onset Date Last Indicated Resolved Time Protective Environment 01/06/2024 01/06/202402/06 6:09 AM COMPENSATION DIRECTOR documented as of this encounter Care Teams Coach Cleaner Relationship Specialty Start Date End Date Viral Silva M.D. [address] [place] [phone] PCP - General Family Medicine 01/05/24 documented as of this encounter
--- OUTSIDE RECORDS SUMMARY | 2024-02-25 18:59 | XMS_ITS | Referral Summary ---
Author Organization [facility] Address [address] [place] [id number] Care Team Providers Care Qa Automation Architect Name Role Phone Viral Silva M.D. Primary Care Provider [phone] Source Comments Patient records contain information from all sites at [facility]. For routine questions regarding patient records, call [phone] during business hours, M-F 8:00 AM - 5:00 PM Central Time. Record requests for emergency care only can be directed to [phone] at any time.[facility] Encounters Date Type Department Care Team Description 02/16/2024 Clinical Communication Department of [facility], [facility], in [place], [place] [address] [place] [address] Rosa Amado, R.N. Quality (D5) 01/19/2024 Clinical Communication Department of [facility], [facility], in [place], [place] [address] [place] [address] Rosa Amado R.NLenore Quality (D5) 01/07/2024 Orders Only Department of [facility], in [address] [address] Viral Silva M.D. Screening Cancer Colon 01/06/2024 3:00 PM WELDER EXPERIMENTAL Office Visit Department of [facility], in [address] [address] Viral Silva M.D. Diabetes Mellitus Type 2 (HCC) (Primary Dx); Hypertension Essential Primary; Hyperlipidemia; Screening Cancer Colon; Obesity Body Mass Index 30-39.9 Adult; Other Psoriasis from Last 3 Months Allergies No known active allergies Medications blood [...] any clubs o r organizations such as worship groups, unions, fraternal or athletic groups, or [...] Answer Date Recorded PHQ-2 Score 6 08/12/2022 [facility] - Occupational Stress Questionnaire Answer Date Recorded [...] Comments Blood Pressure 137/80 01/06/2024 3:08 PM WELDER EXPERIMENTAL Pulse 99 01/06/2024 3:08 PM WELDER EXPERIMENTAL Temperature 36.4 C (97.5 F) 01/06/2024 3:01 PM WELDER EXPERIMENTAL Respiratory Rate 16 01/06/2024 3:01 PM WELDER EXPERIMENTAL Oxygen Saturation 98% 09/10/2022 11:43 AM CDT Inhaled Oxygen Concentration - - Weight 80.9 kg (178 lb 5.6 oz) 01/06/2024 3:01 P M WELDER EXPERIMENTAL Height 164 cm (5' 4.57) 01/06/2024 3:01 PM WELDER EXPERIMENTAL Body Mass Index 30.08 01/06/2024 3:01 PM WELDER EXPERIMENTAL Plan of Treatment Not on file Procedures [...] D.N.P. LAB BLOOD AD D-ON Final Result Performing Organization Address City/State/[facility] Co de Phone Number [facility] [address] [place] [address], [facility] in [address] [address] from Last 3 Months or Most Recently Relevant to Health Maintenance Insurance [employer] Care Teams Qa Automation Architect Relationship Specialty Start Date End Date Viral Silva M.D. [address] [place], [place] [address] [phone] PCP - General Family Medicine 01/05/24
--- OUTSIDE RECORDS SUMMARY | 2024-02-25 18:59 | XMS_ITS ---
Author Organization [facility] Address [address] [place] [address] Care Team Providers Care Mortar Worker Name Role Phone Unavailable Unavailable Unavailable Surgery Details Not on file Complications Check Surgery Details section. Procedure Estimated Blood Loss Check Surgery Details section. Procedure Findings Check Surgery Details section. Procedure Specimens Taken Check Surgery Details section.
--- OUTSIDE RECORDS SUMMARY | 2024-02-25 18:59 | XMS_ITS | Encounter Summary ---
Author Organization [facility] Address [address] [place] [address] Care Team Providers Care Nuclear Weapons Custodian Name Role Phone Viral Silva M.D. Primary Care Provider + [phone] Encounter Details Date Type Department Care Team (Late st Contact Info) Description 01/07/2024 Orders Only Department of Family Medicine, [facility], in [place], [place] [address] [place] [address] Viral Silva M.D. [address] [place] [address] Screening Cancer Colon Social History Tobacco Use Types Packs/Day Years [...] often do you attend chur ch or mandaeism services? More than 4 times per year 11/24/2021 Do you belong to any clubs o r organizations such as orthodoxy groups, unions, fraternal or athletic groups, or [...] Answer Date Recorded PHQ-2 Score 6 08/12/2022 [facility] Occupat ional [facility] - Occupational Stress Questionnaire Answer Date [...] on file documented as of this encounter Plan of Treatment Not on file documented as of this encounter Visit Diagnoses Diagnosis Screening Cancer Colon documented in this encounter Additional Health Concerns Infection Onset Date Last Indicated Resolved Time Protective Environment 01/06/2024 01/06/202402/06 6:09 AM FOOD AND NUTRITION SERVICES ASSISTANT documented as of this encounter Care Teams Nuclear Weapons Custodian Relationship Specialty Start Date End Date Viral Silva M.D. [address] [place] [phone] PCP - General Family Medicine 01/05/24 documented as of this encounter
--- OUTSIDE RECORDS SUMMARY | 2024-02-25 18:59 | XMS_ITS | Encounter Summary ---
Author Organization [facility] Address [address] [place] [address] Care Team Providers Care Lubricator Granulator Name Role Phone Viral Silva M.D. Primary Care Provider + [phone] Reason for Visit * Reason Onset Date Comments Quality 02/16/2024 D5 Encounter Details Date Type Department Care Team (Late st Contact Info) Description 02/16/2024 Clinical Communication Department of Family Medicine, [facility], in [address] [address] Rosa Amado, RLenoreN. Quality (D5) [...] often do you attend chur ch or mu-ism services? More than 4 times per year 11/24/2021 Do you belong to any clubs o r organizations such as alevism groups, unions, fraternal or athletic groups, or [...] Answer Date Recorded PHQ-2 Score 6 08/12/2022 [facility] of Occupat ional Health - [...] encounter Miscellaneous Notes * Telephone Encounter - Rosa Amado R.N. - 02/16/2024 4:25 PM MAIL TRUCK DRIVER In reviewing the patient's diabetic metrics, I have found that the patient is not meeting all of their goals. Please note: A1C control not met, Patient is due for A1C, and Patient is not on Statin medication and/or LDL goal not met. Contacted patient, call response diabetes: spoke with patient, declined to schedule to schedule at this time, we will call again in 1 month. A man answered the phone and states wrong number. Wrong number. And hung up. TRUCK DRIVER documented in this encounter Plan of Treatment Not on file documented as of this encounter Visit Diagnoses Not on filedocumented in this encounter Care Teams Lubricator Granulator Relationship Specialty Start Date End Date Viral Silva M.D. [address] [place] [phone] PCP - General Family Medicine 01/05/24 documented as of this encounter
[2024-02-25 19:07] VITALS: BP 163/82; PULSE 84; RESP 18; TEMP 36.9; O2SAT 99
[2024-02-25 19:47] LABS: Strep A DNA Probe* NOT DETECTED (Not Detectd)
[2024-02-25 20:02] LABS: PCR FLU A Negative PCR FLU A (Negative); PCR FLU B Negative PCR FLU B (Negative); PCR RSV Negative PCR RSV (Negative); SARS PCR* Negative SARS-CoV-2 (Negative)
--- NOTE | 2024-02-25 20:22 | CRLHL7_ITS ---
For Patients: As a result of the Cures Act, medical imaging exams and procedure reports are released immediately into your electronic medical record. You may view this report before your referring provider. If you have questions, please contact your health care provider. INDICATION: Cough. TECHNIQUE: Chest 2 views. COMPARISON: March 04, 2022. FINDINGS: Cardiovascular and mediastinum: Heart size and vasculature are normal in caliber and appearance. Lungs and pleural spaces: Lungs are clear. No sign of infiltrate or mass. No sign of pleural effusion. No pneumothorax. Bones and soft tissues: No significant findings. IMPRESSION: No acute findings and no significant changes from the prior exam. Dictated by Wes Watson MD @ 02/25/2024 9:05:46 PM (Electronically Signed)
--- NOTE | 2024-02-25 20:22 | ED.GENADULT ---
HPI - General Adult General Date Seen: 02/25/24 Chief complaint: Cough Stated complaint: sore throat Time Seen by Provider: 02/25/24 20:13 History of Present Illness HPI narrative: Patient is a 58-year-old male, Senegalese speaking, history is obtained with the assistance of an motor vehicle parts interpreter. He has been sick for about a week with a cough and sore throat. His throat hurts mostly because of the cough. He had some leftover Robitussin with codeine which she says has been helping him but he is all out. Denies fevers, has not had chest pain or shortness of breath. Does not smoke, denies underlying lung disease such as asthma or COPD. Does have a history of diabetes and hypertension. Related Data Home Medications ?Medication ?Instructions ?Recorded ?Confirmed Insulin See Rx Instructions .Route .COMPLEX 10/03/21 06/13/23 metformin 1,000 mg tablet 1,000 mg 10/03/21 glyburide 5 mg tablet 10 mg PO BID 12/19/22 06/13/23 insulin NPH isoph U-100 human 100 20 unit subcut BID 12/19/22 02/25/24 unit/mL subcutaneous suspension (Humulin N NPH U-100 Insulin (isophane susp)) lisinopril 20 mg tablet 20 mg PO DAILY 12/19/22 02/25/24 metformin 1,000 mg tablet 1,000 mg PO BIDWMEAL 12/19/22 02/25/24 polyethylene glycol 3350 17 17 g PO DAILY PRN 12/19/22 06/13/23 gram/dose oral powder (Miralax) aspirin 81 mg tablet,delayed 81 mg PO DAILY diabetes mellitus 06/13/23 06/13/23 release clotrimazole-betamethasone 1 applic topical 06/13/23 %-0.05 % topical cream Previous Rx's ?Medication ?Instructions ?Recorded sennosides 8.6 mg capsule (senna) 8.6 mg PO DAILY PRN constipation 12/19/22 #90 caps cyclobenzaprine 10 mg tablet 10 mg PO TID #15 tabs 03/30/23 ketorolac 10 mg tablet 10 mg PO Q8H 5 days #15 tabs 03/30/23 cyclobenzaprine 10 mg tablet 10 mg PO TID #15 tabs 05/12/23 ketorolac 10 mg tablet 10 mg PO Q8H 5 days #15 tabs 05/12/23 codeine 10 mg-guaifenesin 100 mg/5 10 ml PO Q4-6H PRN #200 mL 06/13/23 mL oral liquid polymyxin B sulfate 10,000 1 drp ophthalmic (eye) Q3H 7 days 06/13/23 unit-trimethoprim 1 mg/mL eye drops #10 mL omeprazole 20 mg capsule,delayed 20 mg PO DAILY #20 caps 11/17/23 release ondansetron 4 mg disintegrating 4 mg PO Q6H #20 tabs 11/17/23 tablet albuterol sulfate 90 mcg/actuation 2 puff inhalation 6XD PRN 02/25/24 aerosol inhaler shortness of breath or wheezing #6.7 grams codeine 10 mg-guaifenesin 100 mg/5 5 ml PO Q6H PRN #120 mL 02/25/24 mL oral liquid (Guaifenesin AC) prednisone 20 mg tablet 20 mg PO BID #10 tabs 02/25/24 Allergies Allergy/AdvReac Type Severity Reaction Status Date / Time No Known Drug Allergies Allergy Verified 10/29/23 18:49 Review of Systems Status of ROS: Reports: 10 or more systems reviewed and unremarkable except as noted in History and below [facility] Medical History Psoriasis ?L40.9 - Psoriasis, unspecified (ICD-10) Diabetes ?E11.9 - Type 2 diabetes mellitus without complications (ICD-10) Hypertension ?I10 - Essential (primary) hypertension (ICD-10) Social History What is your current living situation?: I presently have a place to live Problems where you live: no known problems Problems where you live details: no known problems In the past 12 months, utilities in danger of being shut off: yes In past 12 months, lack of transportation kept you from medical appts, meetings, work, or getting things needed for daily living: no In the past 12 mos, have been you worried that your food would run out before you had money to buy more?: sometimes true In the past 12 mos, the food you bought just didn't last and you didn't have money to buy more?: sometimes true Smoking Status: Never smoker Do you use any of these nicotine containing products: None Second hand tobacco smoke exposure: No How often do you have a drink containing alcohol: never AUDIT-C Alcohol total score: 0 Non-prescribed substance use: denies use Caffeine: Yes (Coffee) How often does anyone, including family, friends and others, physically hurt you: never How often does anyone, including family, friends and others, insult or talk down to you: never How often does anyone, including family, friends and others, threaten you with harm: never How often does anyone, including family, friends and others, scream or curse at you: never service: No Health Related Social Needs: food insecurity (Z59.41) Exam Narrative: Exam Narrative: Vital signs reviewed In general, alert, nontoxic Head: Normocephalic, atraumatic. Eyes: Sclera clear. Pupils equal and reactive. ENT: Mucous membranes moist. Neck: Supple without adenopathy. Heart: Regular rate and rhythm without murmur. Lungs: Clear. No increased work of breathing, crackles or wheezes. Abdomen: Soft, nontender to palpation. Skin: Warm, dry well perfused. Affect: Normal. Const: Vital Signs, click to edit/add: Vital Signs - 24 hr 02/25/24 19:07 Temperature 98.5 F Pulse Rate [Right Pulse Oximeter] 84 Respiratory Rate 18 Blood Pressure [Ri ght Upper Arm] 163/82 H Pulse Oximetry 99 Oxygen Delivery Me thod Room Air Documenting provider has reviewed patient's vital signs: yes Course Course ED Course: Patient had a viral swab as well as a strep swab, these are all negative. He has a bronchospastic sounding cough although no significant wheezes. Will do a chest x-ray to rule out a pneumonia, if that is negative, would treat this with prednisone and an inhaler, I can prescribe more of his Robitussin with codeine for him as well. Chest x-ray by my review did not show any evidence of pneumonia, pleural fluid, pneumothorax, pulmonary edema. Read as unchanged by Radiology. Will treat for bronchitis with prednisone, albuterol, Robitussin with codeine. Return for worsening or new symptoms such as high fevers, shaking chills, shortness of breath, vomiting. Primary care follow-up if not improved over the next week. Vital Signs Vital signs: Initial Vital Signs Temperature 98.5 F 02/25/24 19:07 Temperature Source Temporal Artery Scan 02/25/24 19:07 Pulse Rate 84 02/25/24 19:07 Pulse Rhythm Regular 02/25/24 19:07 Respiratory Rate 18 02/25/24 19:07 Blood Pressure 163/82 H 02/25/24 19:07 Blood Pressure Mean 109 H 02/25/24 19:07 Blood Pressure Position Sitting 02/25/24 19:07 Pulse Oximetry 99 02/25/24 19:07 Oxygen Delivery Method Room Air 02/25/24 19:07 Vital Signs Temperature 98.5 F 02/25/24 19:07 Pulse Rate 84 02/25/24 19:07 Respiratory Rate 18 02/25/24 19:07 Blood Pressure 163/82 H 02/25/24 19:07 Pulse Oximetry 99 02/25/24 19:07 Oxygen Delivery Method Room Air 02/25/24 19:07 Temperature 98.5 F 02/25/24 19:07 Pulse Rate 84 02/25/24 19:07 Respiratory Rate 18 02/25/24 19:07 Blood Pressure 163/82 H 02/25/24 19:07 Pulse Oximetry 99 02/25/24 19:07 Oxygen Delivery Method Room Air 02/25/24 19:07 Medical Decision Making Lab Data Labs: Lab Results 02/25/24 Range/Units 19:15 SARS-CoV-2 (PCR) Negative SARS-CoV-2 (Negative) Influenza Type A (PCR) Negative PCR FLU A (Negative) Influenza Type B (PCR) Negative PCR FLU B (Negative) RSV (PCR) Negative PCR RSV (Negative) Group A Strep DNA NOT DETECTED (Not Detectd) Discharge Plan Discharge Clinical Impression: Bronchitis Patient Disposition: Home, Self-Care Condition: Stable Instructions: Acute Bronchitis (ED) Additional Instructions: Your chest x-ray does not show any evidence of pneumonia/bacterial infection. I a.m. sending prescriptions for you for prednisone, an inhaler, and more of your cough medicine. You should start to feel better over the next week. If not, see your primary doctor. If you are feeling worse, are significantly short of breath, have high fevers, shaking chills, vomiting or other new symptoms, return to the ER for re-evaluation. Be aware that prednisone may make your blood sugars a little harder to control. Prescriptions: New prednisone 20 mg tablet 20 mg PO BID Qty: 10 0RF codeine-guaifenesin [Guaifenesin AC] 10-100 mg/5 mL liquid 5 ml PO Q6H PRNQty: 120 0RF albuterol sulfate 90 mcg/actuation HFA aerosol inhaler 2 puff inhalation 6XD PRN (Reason: shortness of breath or wheezing) Qty: 6.7 0RF No Action cyclobenzaprine 10 mg tablet 10 mg PO TID Qty: 15 0RF ketorolac 10 mg tablet 10 mg PO Q8H 5 Days Qty: 15 0RF aspirin 81 mg tablet,delayed release (DR/EC) 81 mg PO DAILY clotrimazole-betamethasone 1-0.05 % cream topical polymyxin B sulf-trimethoprim 10,000 unit- 1 mg/mL drops 1 drp ophthalmic (eye) Q3H 7 Days Qty: 10 0RF Rx Instructions: while awake; do not exceed 6 doses in 24 hours codeine-guaifenesin 10-100 mg/5 mL liquid 10 ml PO Q4-6H PRNQty: 200 0RF metformin 1,000 mg tablet 1,000 mg Patient Comments: TAKE ONE TABLET BY MOUTH TWICE A DAY WITH MORNING AND EVENING MEALS Insulin See Rx Instructions .ROUTE .COMPLEX Rx Instructions: 10units each AM; 15 units at noc; polyethylene glycol 3350 [Miralax] 17 gram/dose powder 17 g PO DAILY PRN Humulin N NPH U-100 Insulin 100 unit/mL suspension 20 unit subcut BID metformin 1,000 mg tablet 1,000 mg PO BIDWMEAL lisinopril 20 mg tablet 20 mg PO DAILY glyburide 5 mg tablet 10 mg PO BID senna 8.6 mg capsule 8.6 mg PO DAILY PRN (Reason: constipation) Qty: 90 0RF cyclobenzaprine 10 mg tablet 10 mg PO TID Qty: 15 0RF ketorolac 10 mg tablet 10 mg PO Q8H 5 Days Qty: 15 0RF omeprazole 20 mg capsule,delayed release(DR/EC) 20 mg PO DAILY Qty: 20 2RF ondansetron 4 mg tablet,disintegrating 4 mg PO Q6H Qty: 20 0RF Follow Up/Referrals: Provider,Not a Local [Primary Care Provider] - Stand Alone Forms: [facility] Info Instructions
--- OUTSIDE RECORDS SUMMARY | 2024-02-25 20:45 | XMS_ITS | Continuity of Care Document ---
Author Name NwKENN User [email or web address] llowed Address Unknown Organization Unknown Address Unknown Procedures FILTER APPLIED:Only known Procedures with Onset Date within the last 5 years Procedure Date Procedure Provider Additiona l Information Status EMERGENCY DEPT VISIT LOW MDM (49649) Completed MANUAL THERAPY 1/> [facility] (26633) Completed PT EVAL LOW COMPLEX 20 MIN (94158) Completed EMERGENCY DEPT VISIT LOW MDM (57275) Completed EMERGENCY DEPT VISIT MOD MDM (81488) Completed THER/PROPH/DIAG INJ SC/IM (58574) Completed EMERGENCY DEPT VISIT LOW MDM (98192) Completed CT HEAD/BRAIN W/O DYE (34813) Completed CT NECK SPINE W/O DYE (72918) Completed EMERGENCY DEPT VISIT LOW MDM (40723) Completed EMERGENCY DEPT VISIT MOD MDM (35513) Completed GLUCOSE BLOOD TEST (63446) Completed ANES COMP EMERGENCY COND (31551) Completed ANESTH SURG LOWER ABDOMEN (57028) Completed EMERGENCY DEPT VISIT HI MDM (00695) Completed LAPS SURG APPENDEC (03524) Completed ASSAY OF LACTIC ACID (83637) Completed ASSAY SPEC XCP UR BREATH IA (44826) Completed URINALYSIS AUTO W/SCOPE (22848) Completed HEPATIC FUNCTION PANEL (11386) Completed METABOLIC PANEL TOTAL CA (48853) Completed ROUTINE VENIPUNCTURE (44593) Completed CT ABD PELV W/CONTRAST (43636) Completed ELECTROCARDIOGRAM TRACING (23603) Completed ASSAY OF LIPASE (11618) Completed C-REACTIVE PROTEIN (33383) Completed RESP VIRUS 3-5 TARGETS (41486) Completed COMPLETE CBC W/AUTO DIFF WBC (39629) Completed ECHO EXAM OF ABDOMEN (39013) Completed TTE F-UP OR LMTD (13046) Completed EMERGENCY DEPT VISIT MOD MDM (18061) Completed CRITICAL CARE FIRST HOUR (55291) Completed US EXAM CHEST (01714) Co mpleted ELECTROCARDIOGRAM TRACING (79046) Completed X-RAY EXAM CHEST 2 VIEWS (13173) Completed EMERGENCY DEPT VISIT LOW MDM (02568) Completed X-RAY EXAM CHEST 2 VIEWS (53014) Completed Encounters FILTER APPLIED:Only known Encounters with Admission Date within the last 5 years Encounter Location Admission Discharge Billing Code Private Mortgage Banker [facility] Yas JUÁREZ [facility] Matt [facility] Outpatient Yas agrawal [place] [facility] Outpatient Siena Varela ust[facility] Emergency Matt Sampson
--- OUTSIDE RECORDS SUMMARY | 2024-02-25 20:45 | XMS_ITS ---
Author Organization [facility] Address [address] [place] [address] Care Team Providers Care Kitchen Cleaner Name Role Phone Unavailable Unavailable Unavailable Surgery Details Not on file Complications Check Surgery Details section. Procedure Estimated Blood Loss Check Surgery Details section. Procedure Findings Check Surgery Details section. Procedure Specimens Taken Check Surgery Details section.
--- OUTSIDE RECORDS SUMMARY | 2024-02-25 20:45 | XMS_ITS | Referral Summary ---
Author Organization [facility] Address [address] [place] [id number] Care Team Providers Care Data Management Consultant Name Role Phone Viral Silva M.D. Primary Care Provider [phone] Source Comments Patient records contain information from all sites at [facility]. For routine questions regarding patient records, call [phone] during business hours, M-F 8:00 AM - 5:00 PM Central Time. Record requests for emergency care only can be directed to [phone] at any time.[facility] Encounters Date Type Department Care Team Description 02/16/2024 Clinical Communication Department of [facility], [facility], in [place], [place] [address] [place] [address] Rosa Amado, R.N. Quality (D5) 01/19/2024 Clinical Communication Department of [facility], [facility], in [place], [place] [address] [place] [address] Rosa Amado R.NLenore Quality (D5) 01/07/2024 Orders Only Department of [facility], in [address] [address] Viral Silva M.D. Screening Cancer Colon 01/06/2024 3:00 PM SCHOOL LUNCH MONITOR Office Visit Department of [facility], in [address] [address] Viral Silva M.D. Diabetes Mellitus Type 2 [...] How often do you attend chur or denominational services? More than 4 times per year 11/24/2021 Do you belong to any clubs o r organizations such as hinduism groups, unions, fraternal or athletic groups, or [...] Answer Date Recorded PHQ-2 Score 6 08/12/2022 [facility] - Occupational Stress Questionnaire Answer Date [...] Comments Blood Pressure 137/80 01/06/2024 3:08 PM SCHOOL LUNCH MONITOR Pulse 99 01/06/2024 3:08 PM SCHOOL LUNCH MONITOR Temperature 36.4 C (97.5 F) 01/06/2024 3:01 PM SCHOOL LUNCH MONITOR Respiratory Rate 16 01/06/2024 3:01 PM SCHOOL LUNCH MONITOR Oxygen Saturation 98% 09/10/2022 11:43 AM CDT Inhaled Oxygen Concentration - - Weight 80.9 kg (178 lb 5.6 oz) 01/06/2024 3:01 P M SCHOOL LUNCH MONITOR Height 164 cm (5' 4.57) 01/06/2024 3:01 PM SCHOOL LUNCH MONITOR Body Mass Index 30.08 01/06/2024 3:01 PM SCHOOL LUNCH MONITOR Plan of Treatment Not on file Procedures [...] AD D-ON Final Result Performing Organization Address City/State/[facility] Co de Phone Number [facility] [address] [place] [phone], [facility] in [address] [address] from Last 3 Months or Most Recently Relevant to Health Maintenance Insurance [employer] Care Teams Data Management Consultant Relationship Specialty Start Date End Date Viral Silva M.D. [address] [place], [place] [address] [phone] PCP - General Family Medicine 01/05/24
--- OUTSIDE RECORDS SUMMARY | 2024-02-25 20:45 | XMS_ITS | Encounter Summary ---
Author Organization [facility] Address [address] [place] [address] Care Team Providers Care Manager Transfer Name Role Phone Viral Silva M.D. Primary Care Provider + [phone] Reason for Visit * Reason Onset Date Comments Quality 02/16/2024 D5 Encounter Details Date Type Department Care Team (Late st Contact Info) Description 02/16/2024 Clinical Communication Department of Family Medicine, [facility], in [address] [address] Rosa Amado, RLenoreN. Quality (D5) [...] often do you attend chur ch or yazidism services? More than 4 times per year 11/24/2021 Do you belong to any clubs o r organizations such as mu-ism groups, unions, fraternal or athletic groups, or [...] Answer Date Recorded PHQ-2 Score 6 08/12/2022 [facility] - Occupational [...] Rosa Amado R.N. - 02/16/2024 4:25 PM UM RN In reviewing the patient's diabetic metrics, I [...] wrong number. Wrong number. And hung up. RN documented in this encounter Plan of Treatment Not on file documented as of this encounter Visit Diagnoses Not on filedocumented in this encounter Care Teams Manager Transfer Relationship Specialty Start Date End Date Viral Silva M.D. [address] [place] [phone] PCP - General Family Medicine 01/05/24 documented as of this encounter
--- OUTSIDE RECORDS SUMMARY | 2024-02-25 20:45 | XMS_ITS | Encounter Summary ---
Author Organization [facility] Address [address] [place] [address] Care Team Providers Care Corner Former Name Role Phone Viral Silva M.D. Primary Care Provider + [phone] Encounter Details Date Type Department Care Team (Late st Contact Info) Description 01/07/2024 Orders Only Department of Family Medicine, [facility], in [place], [place] [address] [place] [address] Viral Silva M.D. [address] [place] [address] Screening Cancer Colon Social History [...] often do you attend chur ch or yazidi services? More than 4 times per year 11/24/2021 Do you belong to any clubs o r organizations such as adventism groups, unions, fraternal or athletic groups, or [...] Answer Date Recorded PHQ-2 Score 6 08/12/2022 [facility] - Occupational Stress Questionnaire Answer Date Recorded [...] place to sleep or slept in a jail (including now)? No 11/24/2021 Nutrition Answer Date [...] Time Protective Environment 01/06/2024 01/06/202402/06 6:09 AM BACK UP MACHINE OPERATOR documented as of this encounter Care Teams Corner Former Relationship Specialty Start Date End Date Viral Silva M.D. [address] [place] [phone] PCP - General Family Medicine 01/05/24 documented as of this encounter
--- OUTSIDE RECORDS SUMMARY | 2024-02-25 20:45 | XMS_ITS | Clinical Summary ---
Author Organization [facility] Address [address] [place] [address] Care Team Providers Care Coverstitch Elastic Attacher Name Role Phone Viral Silva M.D. Primary Care Provider [phone] Source Comments Patient records contain information from all sites at [facility]. For routine questions regarding patient records, call [phone] during business hours, M-F 8:00 AM - 5:00 PM Central Time. Record requests for emergency care only can be directed to [phone] at any time.[facility] Allergies No known active allergies Medications blood [...] Team Description 02/16/2024 Clinical Communication Department of [facility], [facility], [address] [address] Rosa Amado, R.N. Quality (D5) 01/19/2024 Clinical Communication Department of [facility], [facility], [address] [address] Rosa Amado, R.N. Quality (D5) 01/07/2024 Orders Only Department of [facility], [address] [address] Viral Silva M.D. Screening Cancer Colon 01/06/2024 3:00 PM SENIOR HRIS ANALYST Office Visit Department of [facility], [facility], [address] [address] Viral Silva M.D. Diabetes Mellitus Type 2 [...] How often do you attend chur or temple services? More than 4 times per year 11/24/2021 Do you belong to any clubs o r organizations such as mandaen groups, unions, fraternal or athletic groups, or [...] Answer Date Recorded PHQ-2 Score 6 [facility]/12/2022 [facility] - Occupational Stress Questionnaire Answer Date [...] Comments Blood Pressure 137/80 01/06/2024 3:08 PM SENIOR HRIS ANALYST Pulse 99 01/06/2024 3:08 PM SENIOR HRIS ANALYST Temperature 36.4 C (97.5 F) 01/06/2024 3:01 PM SENIOR HRIS ANALYST Respiratory Rate 16 01/06/2024 3:01 PM SENIOR HRIS ANALYST Oxygen Saturation 98% 09/10/2022 11:43 AM CDT Inhaled Oxygen Concentration - - Weight 80.9 kg (178 lb 5.6 oz) 01/06/2024 3:01 P M SENIOR HRIS ANALYST Height 164 cm (5' 4.57) 01/06/2024 3:01 PM SENIOR HRIS ANALYST Body Mass Index 30.08 01/06/2024 3:01 PM SENIOR HRIS ANALYST Plan of Treatment Health Maintenance Due Date [...] D.N.P. LAB BLOOD AD D-ON Final Result [facility] [address] [place] [id number], [facility] in [address] [address] from Last 3 Months or Most Recently Relevant to Health Maintenance Insurance [employer] [place] Care Teams Coverstitch Elastic Attacher Relationship Specialty Start Date End Date Viral Silva M.D. [address] [place] [address] [place] [phone] PCP - General Family Medicine 01/05/24
--- OUTSIDE RECORDS SUMMARY | 2024-02-25 20:45 | XMS_ITS | Encounter Summary ---
Author Organization [facility] Address [address] [place] [address] Care Team Providers Care Head School Custodian Name Role Phone Viral Silva M.D. Primary Care Provider + [phone] Reason for Visit * Reason Onset Date Comments Quality 01/19/2024 D5 Encounter Details Date Type Department Care Team (Late st Contact Info) Description 01/19/2024 Clinical Communication Department of Family Medicine, [facility], in [address] [address] Rosa Amado, RLenoreN. Quality (D5) [...] often do you attend chur ch or druze services? More than 4 times per year 11/24/2021 Do you belong to any clubs o r organizations such as jehovah's witness groups, unions, fraternal or athletic groups, or [...] lab work and an appointment w/ PCP K GRADER * Telephone Encounter - Rosa Amado R.N. - 01/19/2024 11:25 AM CHECK GRADER Primary Care Diabetes Review Completed patient diabetes [...] weeks . Additional Notes Additional notes: None K GRADER documented in this encounter Plan of Treatment Not on file documented as of this encounter Visit Diagnoses Not on filedocumented in this encounter Additional Health Concerns Infection Onset Date Last Indicated Resolved Time Protective Environment 01/06/2024 01/06/202402/06 6:09 AM CHECK GRADER documented as of this encounter Care Teams Head School Custodian Relationship Specialty Start Date End Date Viral Silva M.D. [address] [place] [phone] PCP - General Family Medicine 01/05/24 documented as of this encounter
== END 2024-02-25 21:38 | disposition home or self-care (01) ==
PROVIDERS: Emergency Provider Emergency Medicine
DX: J20.9 Acute bronchitis, unspecified (principal)
CPT/HCPCS: 71046; 87631; 87651; 99284

== ENCOUNTER 2024-03-10 20:03 | Emergency (ER) | payer MEDICAID, SELFPAY ==
--- OUTSIDE RECORDS SUMMARY | 2024-03-10 20:05 | XMS_ITS | Clinical Summary ---
Author Organization [facility] Address [address] [place] [address] Care Team Providers Care Brush Washer Name Role Phone Viral Silva M.D. Primary Care Provider [phone] Source Comments Patient records contain information from all sites at [facility]. For routine questions regarding patient records, call [phone] during business hours, M-F 8:00 AM - 5:00 PM Central Time. Record requests for emergency care only can be directed to [phone] at any time.[facility] Allergies No known active allergies Medications blood [...] Team Description 02/16/2024 Clinical Communication Department of [facility], [facility], [address] [address] Rosa Amado, R.N. Quality (D5) 01/19/2024 Clinical Communication Department of [facility], [facility], [address] [address] Rosa Amado, R.N. Quality (D5) 01/07/2024 Orders Only Department of [facility], [address] [address] Viral Silva M.D. Screening Cancer Colon 01/06/2024 3:00 PM [employer] Office Visit Department of [facility], [facility], [address] [address] Viral Silva M.D. Diabetes Mellitus Type 2 (HCC) (Primary Dx); Hypertension Essential Primary; Hyperlipidemia; Screening Cancer Colon; Obesity Body Mass Index 30-39.9 Adult; Other Psoriasis from Last 3 Months Immunizations Immunization Administration Dates Next Due Influenza, Injectable, Quadrivalent [...] How often do you attend chur or sabianism services? More than 4 times per year 11/24/2021 Do you belong to any clubs o r organizations such as religion groups, unions, fraternal or athletic groups, or [...] Answer Date Recorded PHQ-2 Score 6 08/12/2022 [facility] - Occupational Stress Questionnaire Answer Date [...] Comments Blood Pressure 137/80 01/06/2024 3:08 PM [employer] Pulse 99 01/06/2024 3:08 PM [employer] Temperature 36.4 C (97.5 F) 01/06/2024 3:01 PM [employer] Respiratory Rate 16 01/06/2024 3:01 PM [employer] Oxygen Saturation 98% 09/10/2022 11:43 AM CDT Inhaled Oxygen Concentration - - Weight 80.9 kg (178 lb 5.6 oz) 01/06/2024 3:01 P M [employer] Height 164 cm (5' 4.57) 01/06/2024 3:01 PM [employer] Body Mass Index 30.08 01/06/2024 3:01 PM [employer] Plan of Treatment Health Maintenance Due Date [...] D.N.P. LAB BLOOD AD D-ON Final Result [facility] [address] [place] [id number], [facility] CNFL [facility] in [address] [address] from Last 3 Months or Most Recently Relevant to Health Maintenance Insurance [employer] Care Teams Brush Washer Relationship Specialty Start Date End Date Viral Silva M.D. [address] [place] [address] [place] [phone] PCP - General Family Medicine 01/05/24
--- OUTSIDE RECORDS SUMMARY | 2024-03-10 20:05 | XMS_ITS | Encounter Summary ---
Author Organization [facility] Address [address] [place] [address] Care Team Providers Care Certified Anesthesiologist Assistant Name Role Phone Viral Silva M.D. Primary Care Provider + [phone] Reason for Visit * Reason Onset Date Comments Quality 01/19/2024 D5 Encounter Details Date Type Department Care Team (Late st Contact Info) Description 01/19/2024 Clinical Communication Department of Family Medicine, [facility], in [address] [address] Rosa Amado, RLenoreN. Quality (D5) [...] often do you attend chur ch or buddhist services? More than 4 times per year 11/24/2021 Do you belong to any clubs o r organizations such as confucianist groups, unions, fraternal or athletic groups, or [...] Date Recorded PHQ-2 Score 6 08/12/2022 [facility] [...] place to sleep or slept in a snf (including now)? No 11/24/2021 Nutrition Answer Date [...] lab work and an appointment w/ PCP [employer] * Telephone Encounter - Rosa Amado R.N. - 01/19/2024 11:25 AM [employer] Primary Care Diabetes Review Completed patient diabetes [...] weeks . Additional Notes Additional notes: None [employer] documented in this encounter Plan of Treatment Not on file documented as of this encounter Visit Diagnoses Not on filedocumented in this encounter Additional Health Concerns Infection Onset Date Last Indicated Resolved Time Protective Environment 01/06/2024 01/06/202402/06 6:09 AM [employer] documented as of this encounter Care Teams Certified Anesthesiologist Assistant Relationship Specialty Start Date End Date Viral Silva M.D. [address] [place] [phone] PCP - General Family Medicine 01/05/24 documented as of this encounter
--- OUTSIDE RECORDS SUMMARY | 2024-03-10 20:05 | XMS_ITS ---
Author Organization [facility] Address [address] [place] [address] Care Team Providers Care Clay Washer Name Role Phone Unavailable Unavailable Unavailable Surgery Details Not on file Complications Check Surgery Details section. Procedure Estimated Blood Loss Check Surgery Details section. Procedure Findings Check Surgery Details section. Procedure Specimens Taken Check Surgery Details section.
--- OUTSIDE RECORDS SUMMARY | 2024-03-10 20:05 | XMS_ITS | Encounter Summary ---
Author Organization [facility] Address [address] [place] [address] Care Team Providers Care Temporary Office Assistant Name Role Phone Viral Silva M.D. Primary Care Provider + [phone] Reason for Visit * Reason Onset Date Comments Quality 02/16/2024 D5 Encounter Details Date Type Department Care Team (Late st Contact Info) Description 02/16/2024 Clinical Communication Department of Family Medicine, [facility], in [address] [address] Rosa Amado, RLenoreN. Quality (D5) [...] often do you attend chur ch or episcopal services? More than 4 times per year [...] Rosa Amado R.N. - 02/16/2024 4:25 PM REEL SLITTER In reviewing the patient's diabetic metrics, I [...] wrong number. Wrong number. And hung up. SLITTER documented in this encounter Plan of Treatment Not on file documented as of this encounter Visit Diagnoses Not on filedocumented in this encounter Care Teams Temporary Office Assistant Relationship Specialty Start Date End Date Viral Silva M.D. [address] [place] [phone] PCP - General Family Medicine 01/05/24 documented as of this encounter
--- OUTSIDE RECORDS SUMMARY | 2024-03-10 20:05 | XMS_ITS | Referral Summary ---
Author Organization [facility] Address [address] [place] [address] Care Team Providers Care Transit Mixer Operator Name Role Phone Viral Silva M.D. Primary Care Provider [phone] Source Comments Patient records contain information from all sites at [facility]. For routine questions regarding patient records, call [phone] during business hours, M-F 8:00 AM - 5:00 PM Central Time. Record requests for emergency care only can be directed to [phone] at any time.[facility] Encounters Date Type Department Care Team Description 02/16/2024 Clinical Communication Department of [facility], [facility], in [place], [place] [address] [place] [address] Rosa Amado, R.N. Quality (D5) 01/19/2024 Clinical Communication Department of [facility], [facility], in [address] [address] Rosa mAado R.NLenore Quality (D5) 01/07/2024 Orders Only Department of [facility], [facility], in [address] [phone] Viral Silva M.D. Screening Cancer Colon 01/06/2024 3:00 PM SCOREBOARD OPERATOR Office Visit Department of [facility], in [address] [phone] Viral Silva M.D. Diabetes Mellitus Type 2 [...] 01/22/2010 Neuroma 02/27/2008 Other Psoriasis 05/25/2006 Immunizations Immunization Administration Dates Next Due Influenza, [...] any clubs o r organizations such as mormon groups, unions, fraternal or athletic groups, or [...] Answer Date Recorded PHQ-2 Score 6 08/12/2022 [facility] Occupational Stress Questionnaire Answer Date [...] Comments Blood Pressure 137/80 01/06/2024 3:08 PM SCOREBOARD OPERATOR Pulse 99 01/06/2024 3:08 PM SCOREBOARD OPERATOR Temperature 36.4 C (97.5 F) 01/06/2024 3:01 PM SCOREBOARD OPERATOR Respiratory Rate 16 01/06/2024 3:01 PM SCOREBOARD OPERATOR Oxygen Saturation 98% 09/10/2022 11:43 AM CDT Inhaled Oxygen Concentration - - Weight 80.9 kg (178 lb 5.6 oz) 01/06/2024 3:01 P M SCOREBOARD OPERATOR Height 164 cm (5' 4.57) 01/06/2024 3:01 PM SCOREBOARD OPERATOR Body Mass Index 30.08 01/06/2024 3:01 PM SCOREBOARD OPERATOR Plan of Treatment Not on file Procedures [...] AD D-ON Final Result Performing Organization Address City/State/[facility] Co de Phone Number [facility] [address] [place] [id number], [facility] CN[facility] in [address] [address] from Last 3 Months or Most Recently Relevant to Health Maintenance Insurance [employer] Care Teams Transit Mixer Operator Relationship Specialty Start Date End Date Viral Silva M.D. [address] [place], [place] [address] [phone] PCP - General Family Medicine 01/05/24
--- OUTSIDE RECORDS SUMMARY | 2024-03-10 20:06 | XMS_ITS | Data Portability ---
Author Organization [place] [facility]du[facility] Address [address] [place] [address] [facility] [place] [address] Assessment Encounter Date Assessment Date Assessment LastModified by Organization Details LastModified Time 05/05/2023 05/05/2023 patient needs to follow up with in-person within 1 month Not available 05/05/2023 12:06:20 09/15/2023 09/15/2023 patient needs to follow up with in-person within 1 month [email or web address] Not available 09/14/2023 15:19:28 Plan of Treatment Reminders Order Date Submit Date Provider Last Modified By Organization Details Last Modified Time Details Appointments None recorded . Lab HbA1c (hemoglo bin A1c), blood 2022 023 [facility], [address] [place] [address], [phone], 3 12:43:26 hemoglob in A1c, QN, blood 2023 024 [facility], [address] [place] [address], [phone], 4 12:50:30 BMP, serum or plasma 2023 024 [facility], [address] [place] [address], [phone], 4 14:19:08 microalb umin, urine 2023 024 [facility], [address] [place] [address], [phone], 4 14:15:38 hemoglob in A1c, QN, blood [address]- Lab, [address] [place], [address], 4 22:28:01 CMP, serum or plasma 2023 024 [facility]- Lab, [address] [place], [address], 4 13:56:50 Referral director of casework services/ care coordina tor referral 2023 024 [email or web address] Not available 4 16:07:13 communit y health worker referral - patient [facility]? can he connect with CHW at that time 2023 024 [email or web address] Not available 4 16:39:04 Procedures None recorded . Surgeries None recorded . Imaging None recorded . Medication Orders metformi n 1,000 mg tablet [address], [address], 3 14:42:38 clotrima zole-bet amethaso ne 1 %-0.05 % topical cream [address], [address], 4 14:10:57 lisinopr il 20 mg tablet [address], [address], 4 13:41:01 triamcin olone acetonid e 0.1 % topical cream [address] [place], [address], 4 14:12:12 Humulin N NPH U-100 Insulin KwikPen 100 unit/mL (3 mL) subcutan eous 2023 [email or web address] Not available 12:24:57 triamcin olone acetonid e 0.5 % topical ointment [address], [address], 4 12:16:15 methotre xate sodium 2.5 mg tablet [address], [address], 17:25:12 folic acid 1 mg tablet [address], [address], 17:25:11 Patient TargetsNo targets recorded. Patient Instructions Encounter Date Encounter Id Patient Instructions Last Modified By Organization Details Last Modified Time 05/05/2023 [id number] dental referral list Not available 05/05/2023 12:05:57 - discussed treatment options, risk vs benefits, importance of life style modification which includes healthy diet (low carbs, high vegs, portion control, calorie/carb count, etc.) and daily exercise (30 mins 5 days a week). Patient understands, will improve and adhere to better lifestyle changes.- discussed with patient complications that will occur if condition is not controlled which includes organ failure (heart attack, stroke, kidney failure, vision loss, etc.), amputations, infections, DKA, coma, and . Patient understands and has agreed to plan. patient agreed and verbalized understanding Not available 05/05/2023 11:59:44 11/24/2023 [id number] sent for phototherapy at [facility] from appt at [place] [id number] Not available 11/27/2023 20:27:22 Reason for Referral Clinical Rehabilitation Liaison/care Coordinato r Referral for Uncontrolled type 2 diabetes mellitus Referring Physician: Gracie Lezama [facility], Internal Medicine, Encounter Date: 05/05/2023 Community Health Worker Refe rral for Uncontrolled type 2 diabetes mellitus elevated BP at visit - monitor with CHW at [place] and also review home glucose reading/med lidna patient [facility]? can he connect with CHW at that time Referring Physician: Alina Valverde, Family Medicine, Encounter Date: 09/15/2023 Results Created Date Observation Date Name Description Value Unit Range Abnormal Flag Note LastModifiedBy Organization Detail LastModifiedTime 01/22/20 22 01/21/2022 HbA1c (hemo globi n A1c), blood HbA1c 9.9 Not Available [place] [facility] [address] [facility] [place], [address], 01/21/2022 14:53:07 07/09/19 23 07/08/2022 HbA1c (hemo globi n A1c), blood A1C 8.9 high Not Available [facility] [address], [place], [address], 07/09/2022 12:22:29 05/06/19 24 05/06/2023 BMP, serum or plasm a creatinine 0.9 Not Available [facility] [address] [facility] [place], [address], 05/06/2023 14:10:03 05/06/19 24 05/06/2023 BMP, serum or plasm a microalbumin 1130 high Not Available [facility] [address] [facility] [place], [address], 05/06/2023 14:10:03 05/06/19 24 05/06/2023 micro album in, urine creatinine 0.9 Not Available [facility] [address] [facility] [place], [address], 07/06/2023 14:15:38 05/06/19 24 05/06/2023 micro album in, urine microalbumin 1130 high Not Available [facility] [address] [facility], [address], 07/06/2023 14:15:38 09/26/19 24 09/26/2023 hemog lobin A1c, QN, blood A1C 11.8 abnormal Not Available [address], [address], 09/26/2023 13:48:58 Result Notes None recorded. Problems Name Problem SNOMED Code Status Onset Date Resolution Date Notes Provider Name and Address Organization Details Recorded Time Albuminuria 388314872 Active 2020 Shaneka Winkler NP [address] [place], [address], [facility] [employer] 2 16:15:48 Essential hypertension 23239583 Active 2021 Shaneka Winkler NP [address] [place], [address], [email or web address] 2 16:18:38 Type 2 diabetes mellitus 92238857 Active 2019 Shaneka Winkler NP [address] [place] [address], [address], [facility] [employer] 2 16:15:53 Psoriasis 1761145 Active 2019 [place] [address] [place] [address], [address], [facility] [employer] 2 16:15:52 Nonulcer dyspepsia 1622979 Active 2019 [place] [address] [place] [address], [address], [facility] [employer] 2 16:15:50 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 Medical Equipment None Reported. Allergies No known drug allergies Medications Name Sig Start Date Stop Date Status Note LastModified by Organization Details LastModified Time cyclobenz aprine 10 mg tablet TAKE 1 TABLET BY MOUTH THREE TIMES DAILY 09/14 completed Not Available Not Available Not Available glyburide 5 mg tablet take 1 tablet by oral route 2 times every day before breakfas t 11/29 completed Not Available Not Available Not Available Novolin N NPH U-100 Insulin isophane 100 unit/mL subcutane ous susp 20 units in the morning and 20 units in the evening 05/22 completed 03/18/20 (MJN): 11/05 [id number] (x2). Not Available Not Available Not Available sucralfat e 1 gram tablet TAKE 1 TABLET (1 G) BY MOUTH FOUR TIMES DAILY BEFORE MEALS AND AT BEDTIME FOR 7 DAYS. active Not Available Not Available No t Available lisinopri l 20 mg tablet TAKE 1 TABLET BY MOUTH EVERY DAY active Not Available Not Available No t Available prednison e 20 mg tablet TAKE DIRECTED 02/04 completed Not Available Not Available Not Available triamcino lone acetonide 0.5 % topical ointment APPLY A THIN LAYER TO THE AFFECTED AREA(S) BY TOPICAL ROUTE 2 TIMES PER DAY NEEDED FOR PSORIASI S active Not Available Not Available No t Available fluocinon archana 0.05 % topical ointment APPLY TO AFFECTED AREA(S) TWO TIMES DAILY DIRECTED BUT NOT ON FACE 02/04 completed Not Available Not Available Not Available aspirin 81 mg tablet,de layed release TAKE 1 TABLET BY MOUTH EVERY DAY DIRECTED , FOR DIABETES /PREVENT HEART DISEASE. active Not Available Not Available No t Available triamcino lone acetonide 0.1 % topical cream active Not Available Not Available Not Available ketorolac 10 mg tablet TAKE 1 TABLET BY MOUTH EVERY 8 HOURS FOR 5 DAYS. active Not Available Not Available No t Available prednisol one acetate 1 % eye drops,jarrod pension 1 DROP IN BOTH EYES TWICE DAILY, CONTINUE DIRECTED . 09/01 completed Not Available Not Available Not Available methotrex ate sodium 2.5 mg tablet TAKE TWO TABLETS BY MOUTH WEEKLY FOR 2 MONTHS. active Not Available Not Available No t Available simvastat in 20 mg tablet take 1 tablet by oral route every day in the evening 11/29 completed Not Available Not Available Not Available metformin 1,000 mg tablet TAKE 1 TABLET BY MOUTH 2 TIMES EVERY DAY WITH MORNING AND EVENING MEALS active Not Available Not Available No t Available neomycin- polymyxin -dexameth 3.5 mg/mL-10, 000 unit/mL-0 .1% eye drops INSTILL ONE DROP IN BOTH EYES THREE TIMES A DAY FOR 3 DAYS AFTER INJECTIO N 02/04 completed Not Available Not Available Not Available triamcino lone acetonide 0.1 % topical ointment apply by topical route 2 times every day a thin layer to the affected area(s) 01/09 completed Not Available Not Available Not Available clotrimaz ole-betam ethasone 1 %-0.05 % topical cream APPLY TO THE AFFECTED TOPICALL Y AND SURROUND ING AREAS OF SKIN 2 TIMES PER DAY IN THE MORNING AND EVENING FOR 2 WEEKS 12/12 completed Not Available Not Available Not Available lisinopri l 10 mg tablet TAKE ONE TABLET BY MOUTH ONCE DAILY 05/18 completed Not Available Not Available Not Available polymyxin B sulfate 10,000 unit-trim ethoprim 1 mg/mL eye drops INSTILL 1 DROP INTO THE EYE/S EVERY THREE HOURS WHILE AWAKE FOR 7 DAYS; DO NOT EXCEED 6 DOSES IN 24 HOURS active Not Available Not Available No t Available docusate sodium 100 mg capsule TAKE 1 CAPSULE (100 MG) BY MOUTH ONCE DAILY FOR 14 DAYS. 12/12 completed Not Available Not Available Not Available omeprazol e 20 mg capsule,d elayed release TAKE 1 CAPSULE BY MOUTH DAILY. active Not Available Not Available No t Available folic acid 1 mg tablet TAKE ONE TABLET BY MOUTH EVERY DAY EXCEPT FOR TUESDAY FOR 2 MONTHS. active Not Available Not Available No t Available codeine 10 mg-guaife nesin 100 mg/5 mL oral liquid TAKE 10ML BY MOUTH EVERY 4 TO 6 HOURS NEEDED active Not Available Not Available No t Available triamcino lone acetonide 0.1 % lotion apply by topical route 2 times every day a thin layer to the affected area(s) 09/01 completed Not Available Not Available Not Available polyethyl darryl glycol 3350 17 gram/dose oral powder MIX 17GM IN 80Z LIQUID AND GIVE VIA J-TUBE TWICE A DAY active Not Available Not Available No t Available ondansetr on 4 mg disintegr ating tablet TAKE 1 TABLET BY MOUTH EVERY 6 HOURS. active Not Available Not Available No t Available lisinopri l 2.5 mg tablet TAKE ONE TABLET BY MOUTH ONCE DAILY 04/09 completed Not Available Not Available Not Available Humulin N NPH U-100 Insulin per pt 2022 active Pt has active UCARE - DVD 01/05/20 AM: lot [id number] Exp 01/14/24 x2 07/06/23 (LRB): [id number] x 1 vial 05/30/23 REJI: Lot:[id number] Exp:02/16X2 04/21/23 LRB: Lot: [id number] EXP. x 1 prefille d [facility] 03/03/23 Lot [id number] x2 vials. Exp. 5DVD 08/07/22 Lot [id number] X2 vials. Exp: 5DVD 11/15/22 Lot [id number] X2 vials. Exp:09/13 ASM 10/06/22 Lot: [id number] Exp: 5 x2 vialsASM 08/11/22 lot:[id number] EXP: 12/15/23 [id number] CA 07/15/2022 : Lot:[id number] EXP: 03/16/19 25 X2LCA 05/19/2022 : Lot [id number] EXP02/13 x2 VialsAO 03/09/22 Lot: [id number] X2 Vials EXP: 03/16/19 25LS 01/27/22 Lot: [id number] Exp: 4 x vial // Lot: [id number] Exp: 12-15-19 24 x1 vialGT X2 vials lot:[id number] exp:01/16 03/09 JT 02/14/20 24 [id number] - 2 Vials ASM 08/27/21 : [id number] Exp: 24 [id number] CA 07/15/21: LOT [id number] EXP. 4 Not Available Not Available Not Available Levemir U-100 Insulin 100 unit/mL subcutane ous solution inject 35 Unit by Subcutan eous route once 10/27 completed Not Available Not Available Not Available Humulin N NPH U-100 Insulin KwikPen 100 unit/mL (3 mL) subcutane ous Inject 20 units twice a day by subcutan eous route before meal(s). 2023 active Pt has active UCARE - DVD 01/05/20DO NOT FILL INSULIN AT [facility] AM- pt stated he applied but is waiting to hear back. Checked Minutes with pt did not pop up. 1 box given out- LOT:[id number] EXP: WS - pt stated he has not renewed insuranc e and out of insulin. Pt advised to reapply, and last box of insulin given. [id number] 11.23.24 01/05/24 (LRB): [id number] Exp, 11/23/24 x 1 box. Patient has an upcoming appt. schedule d to [facility] and get a new script. Patient is aware that this is the last box we are able to give him. 11/15/23 AM- Lot: [id number] exp: nov 2309/15/23 REJI lot:[id number] exp:03/2024 1 boxUses about 1200 U per month - 1 box should last about 5 weeks Not Available Not Available Not Available Afluria Qd 2019- (36 mos up)(PF)60 mcg (15 mcg x4)/0.5 mL IM syringe ADM 0.5ML IM UTD 07/06 completed Not Available Not Available Not Available Vitals Date Recorded Body weight Heart rate Systolic blood pressure Diastolic blood pressure Provider Name and Address Organization Details Last Updated DateTime 03/18/2022 56630.27 g 88 /min 160 mm[Hg] 84 mm[Hg] CLAYTON MENENDEZ ANP-[address] [place], [address] , [facility] [facility] 03/18/2022 12:03:27 Date Recorded Body weight Systolic blood pressure Diastolic blood pressure Provider Name and Address Organization Details Last Updated DateTime 05/05/2023 68054.1 g 116 mm[Hg] 70 mm[Hg] Karolina Mcmillan [facility] 05/05/2023 11:48:38 Date Recorded Body weight Body temperature Oxygen saturation Oxygen saturation in Arterial blood by Pulse oximetry Heart rate Systolic blood pressure Diastolic blood pressure Provider Name and Address Organization Details Last Updated DateTime 4 94336.6 6 g 96.5 [degF] 95 % 95 % 89 /min 168 mm[Hg] 84 mm[Hg] Akua SmithLaxmi riggs [facility] 4 11:32:38 Date Recorded Body height Body mass index (BMI) Body weight Body temperature Oxygen saturation Oxygen saturation in Arterial blood by Pulse oximetry Respiratory rate Heart rate Systolic blood pressure Diastolic blood pressure Provider Name and Address Organization Details Last Updated DateTime 4 165.1 cm 30 kg/m2 79504.3 5 g 97.7 [degF] 98 % 98 % 22 /min 92 /min 132 mm[Hg] 74 mm[Hg] Brittany Bonilla [facility] [employer] [facility] 4 17:04:20 Social History Question Answer Notes LastModified by Organizat ion Details LastModified Time Tobacco Smoking Status Never Smoker Not Available [facility] 12/18/2019 03:52:53 What Is Your Level Of Alcohol Consumption? None [id number] Information not available 12/18/2019 What Is Your Level Of Caffeine Consumption? Moderate [id number] Information not available 12/18/2019 Sex: Unknown Functional Status None recorded. Mental Status None recorded. Family History Relationship Description Onset Age of this Age Resolved Age Notes LastModified by Organization Details LastModified Time Sister Malignant neoplasm of uterus [email or web address] Not available 2019 15:06:51 Medical History No medical history recorded. Immunizations Vaccine Type Date Status Note Provider Nam e and Address Organization Details Recorded Time COVID-19, mRNA, LNP-S, PF, 30 mcg/0.3 mL dose 12/18/2020 completed ALBINO MCDONALD [address] [place], [address], [facility] 12/18/2020 18:47:15 Past Encounters Encounter ID Performer Location Encounter Start Date Encounter Closed Date Diagnosis/Indication Diagnosis SNOMED-CT Code Diagnosis ICD10 Code Diagnosis Note [id number] Lisa Nolan NP [facility] [address] [place] [address] 12/05/2019 14:49:29 12/05/2019 17:50:58 Nonulcer dyspepsia 7311471 K30 Test for H. pylori, may start Omeprazole after he returns stool sample. Follow up pending H. pylori results. [id number] [facility] [address] [place] [address] 02/13/2020 10:03:55 02/13/2020 14:56:51 Type 2 diabetes mellitus without complication 037559662 E11.9 Refill metformin. DM2 labs - follow up via phone. Psoriasis 9683545 L40.9 Nonulcer dyspepsia 92524 07 K30 Continue omeprazole . [place] PRN. [id number] ALBINO MCDONALD [facility] [address] [place] [address] 12/18/2020 18:23:02 03/04/2021 03:52:43 Administration of SARS-CoV-2 mRNA vaccine 7010580624 Z23 [id number] [facility] [address] [place] [address] 04/02/2021 10:04:12 04/02/2021 11:48:02 Hypertensive disorder 85552071 I10 Increase lisinopril from 2.5mg daily to 10mg daily. Check BMP prior to next visit. Type 2 duke betes mellitus without complication 842009965 E11.9 AM BGs 145; QHS 160-5.. Cont NPH, metformin. Will refill metformin today. He states he has enough NPH. REcheck A1C and pt requesting f/u with Lisa Type 2 duke betes mellitus 38427614 E11.9 Psoriasis 6618349 L40.9 Refill triamcinol one cream Visual impairment 110917 003 H54.7 Will ask staff to assist with interpreti ng to see if pt can get into opth sooner. [id number] WHITNEY ECHOLS [place] [facility] [address] [place] [address] 04/09/2021 11:30:44 04/09/2021 17:57:13 Type 2 diabetes mellitus 55539953 E11.9 1) Split NPH from 40U daily to 20U bid. Cont to log BG and report next call2) Cont metformin3 ) DM eye exam4) We reviewed risks of high BG (vascular, eye, nephropath y, cVA)5) CHW referral for individual health coaching (pt amenable) Diabetes mellitus 990165 09 E11.8 [id number] WHITNEY ECHOLS [place] [facility] [address] [place] [address] 04/23/2021 10:26:25 04/23/2021 11:28:56 Type 2 diabetes mellitus 72332911 E11.9 1) Change NPH to increased 23U in am (from 20U; cont 20 Units in the evening). Cont to log BG and bring in next visit. Olga hutchins2) Cont metformin- will refill today3) Commended on diet changes [id number] [facility]NEY [facility]OLS [facility] [address] [place] [address] 05/05/2021 16:10:37 05/05/2021 17:23:45 Type 2 diabetes mellitus 73927078 E11.9 1) Cont 20/22U per his account2) Cont metformin3 ) Commended on diet changes4) Give BG log and record am AND before evening meals.5) check BG readings w/dizzines s. HOld off on further lisinopril increase until dizziness sorted out. CAn trial hs lisinopril dosing. [id number] Shaneka Winkler, [facility] [place] [facility] [address] [place] [address] 09/21/2021 11:07:16 09/21/2021 11:41:07 COVID-19 582736622 U07.1 With comorbidit ies of T2DM, HTN and obesity. Vaccinated and boosted x 1. Patient is day #6 and doing well; mostly recovered. He feels well enough to work. We agreed that he will test on the morning of day #7. If he is negative, he may end his isolation. If he is positive, he should remain home until day 10 and wear a well-fitte d mask if he absolutely needs to be around other people. Letter provided for work indicating he return after day #10 of illness. Given 2 home tests. Essential hypertension 76854852 I10 Updating problem list. On ACEI. [id number] [facility] [address] [place] [address] 02/04/2022 12:28:57 02/04/2022 13:05:04 Type 2 diabetes mellitus 69406378 E11.9 1) Cont 25/20U per his account2) Cont metformin3 ) Discussed substantia l A1C and BG discrepanc y and arranged for a verificati on with another meter at [facility] . He said he will change batteries first and then come in next week if numberes are still off4) We discussed importance of close monitoring of BG AND a follow-up commmittme nt to both provider and CHW (JT is new CHW, replacing AC) . Of note, he has not had follow-up since April.5) He needs either NPH adjustment or an addition of an CASSIDY, but I need verificati on that he can collect accurate BG in order to safely titrate. Warm hand off to CHWs [id number] and routine labs will be ordered after next visit once changes have been made. [id number] WHITNEY ECHOLS [facility] [address] [place] [address] 03/18/2022 11:13:47 03/18/2022 12:21:35 Hypertensive disorder 19439786 I10 Has not been taking his lisinopril as he did not shredder picker. Connected with CHW while at visit and she will provide him with vouchers and try to re-establi sh DM f/u. Psoriasis 0741923 L40.9 Severe. Trial of clotri-bet a or pharmacy-p rovided alternativ e to see if itching can be controlled . This would ideally be treated in dermatolog y with more expensive drugs which are not currently an option for this pt.. Uncontroll ed type 2 diabetes mellitus 495817153 E11.65 Poorly controlled . Pt awaiting dental appt, but CHW has not been able to reach, and pt has not been taking advised insulin d/t perceived hypoglycem ia (readings were 90). We discussed importance of trying some strategy or it is likely he won't be able to receive needed dental treatments .Trial NPH . Pt should be switched to 70/30, but not stable enough to do so yet given sensitivit y to even NPH. Type 2 duke betes mellitus 94223649 E11.9 1) Trial of in lieu of to see if smaller dose more tolerable. 2) Cont metformin3 ) Discussed substantia l A1C and BG discrepanc y4) We discussed importance of close monitoring of BG AND a follow-up commmittme nt to both provider and CHW Neglect of dental care 499689269 R46.89 Previously referred by dental to get A1C low enough to perform dental procedure. Patient communicat ion/follow through has been a continued challenge and we keep working with him on options. [id number] GRACIE CARRANZA MD [facility] [address] [facility] [place] [address] 05/05/2023 10:41:50 05/05/2023 12:13:30 Uncontrolled type 2 diabetes mellitus 145101231 E11.65 continue with metformin and insulin, refer to renal social worker Hypertensive disorder 38 262046 I10 will refill lisinopril 20mg daily. Psoriasis 6609616 L40.9 Refill triamcinol one cream Preventive dental procedure 74793847 Z01.20 [id number] MD [facility] [address] [facility] [place] [address] 09/15/2023 10:47:58 09/15/2023 14:49:50 Uncontrolled type 2 diabetes mellitus 280628051 E11.65 taking medication as directedmo rning blood glucose readings excellent but does not fit with most recent A1c in April that was HIGHwill have patient connect with CHW - possibly at [employer] to bring in home readingsCh waqar over to kwik pen insulin - may need to titrate does up depending on blood glucose readingsLa bs to be done at [place] in the coming week - will call with results Hypertensive disorder 38 867423 I10 did not take med todayconti nue lisinopril 20mg daily.Chec k BP at [facility] Psoriasis 5232168 L40.9 try stronger steroidref er to see Dr Caputo [id number] ALINA VALVERDE MD [place] [facility] [address] [facility] [address] 11/24/2023 16:56:56 12/06/2023 16:38:56 Psoriasis 0045852 L40.9 Present upon examinatio n. Reviewed previous labwork. Discussed oral methotrexa te as treatment option. Patient recalled hearing about photo/lase r treatment for psoriasis. Photo/lase r treatments are available at [facility], which accepts the patient's insurance. In the interim of starting photo/lase r treatments , will start patient on methotrexa te 2.5 mg twice weekly for 2 months, along with folic acid 1 mg daily EXCEPT for Sundays.MT X lab followup through PCP Health Concerns Section Related Observation LastModified by Organization Detai ls LastModified Time None Recorded Concern Status LastModified by Organization Details LastModified Time None Recorded Advance Directives Directive None Recorded Payers Encounter Date Sequence Insurance Name Policy Number Policy Watkins Covered Member ID Watkins Member ID Guarantor Name 02/04/2022 SLIDING FEE SCHEDULE - DISCOUNT Narciso Ramírez Solares 03/18/2022 SLIDING FEE SCHEDULE - DISCOUNT Narciso Ramírez Solares 05/05/2023 SLIDING FEE SCHEDULE - DISCOUNT Narciso Ramírez Solares 09/15/2023 SLIDING FEE SCHEDULE - DISCOUNT Narciso Ramírez Solares 11/24/2023 SLIDING FEE SCHEDULE - DISCOUNT Narciso Ramírez Solares Notes Date Note Type Note Provider Name and Address Organization Details Recorded Time 02/04/2022 text/html Author called pt d/t simone with Elke ji. His only questions pertain to tooth extraction, of which he was generally referred to dentist to answer. We did review why his BG need to be controlled for extraction. His BGs are noted to be 130-140 prior to eating; 135 after. This is inconsistent with an A1C of 9.9% of which the average is 280. CLAYTON MENENDEZ, ANP- [address] [place], [phone], [facility] - [facility] 02/04/2022 13:36:12 03/18/2022 text/html Pt presents for follow-up of DM. He notes needing dental care and as we do each appt, he was reminded that his DM needs to be in better control. CHW has had difficulty reaching at times. He requests new medication for psoriasis as triamcinolone cream not working. He is unable to afford any medications currently as he has no money. He needs more insulin. He tried higher insulin dose, but got very shaky. Rx lisinopril notes refilled but pt states he did not shredder picker as he did not have any money. CLAYTON MENENDEZ, ANP- [address] [facility] [place], [phone], [email or web address] 03/19/2022 14:44:16 05/05/2023 text/html patient is here to follow up on BP and refill on psoriasis meds.patient describes no new issues except for running out of medications.he has not been taking the medicines for the past few days. Blood pressure been within good range.he has not checked his DM for a while. meds are adequate. most recent labs reviewed.patient has been taking care of feet regularly. will need to schedule for in-person visit in 1 month. GRACIE CARRANZA MD [address] [facility] [place], [address], [email or web address] 05/05/2023 12:06:37 09/15/2023 text/html 58 yo male here for follow up of diabetes and psoriasis Patient also reports that he was in the ER at [facility]. Cut his thumb Diabetes - last A1c was April.7Meds include NPH insulin dose: 20 U in Am and 20U at pmOral meds: metformin 1000 mg BIDChecks in the morning - 90 Psoriasis: diffuse plaques over torso ALINA VALVERDE MD [address] [facility] [place] [place], [address], [facility] [employer] 09/26/2023 22:22:12 11/24/2023 text/html 58 yo here with severe plaque psoriasisHas not had improvement with topical steroids and would like to consider other therapiesPMH significant for DM(poor control A1c 11.8) Baseline renal function Cr normal 05/07ALT 2020 WNL ALINA VALVERDE MD [address] [facility] [place], [address], [facility] - [facility] 12/13/2023 17:42:05
[2024-03-10 20:19] VITALS: BP 118/64; PULSE 109; RESP 22; TEMP 36.8; O2SAT 97; BMI 30.9
[2024-03-10 21:23] LABS: Basophils Absolute Auto 0.04 K/uL (0.00-0.30); Basophils Percent Auto 0.5 % (0.0-3.0); Eosinophils Absolute Auto 0.11 K/uL (0.00-0.50); Eosinophils Percent Auto 1.4 % (0.0-7.0); Hematocrit 39.3 % (37.0-53.0); Hemoglobin* 13.6 gm/dL (13.5-17.5); Immature Granulocytes Abs Auto 0.03 K/uL (0.00-0.30); Immature Granulocytes Pct Auto 0.4 %; Lymphocytes Percent Auto 14.2 % (20-44); Mean Corpuscular HGB Conc 35 gm/dL (32-36); Mean Corpuscular Hemoglobin 29 pg (26-34); Mean Corpuscular Volume 84 fL (80-100); Neutrophils Absolute Auto 5.42 K/uL (1.7-7.0); Neutrophils Percent Auto 69.5 % (42.0-72.0); Platelet Count* 198 K/uL (140-440); RDW Coefficient of Variation % 12.5 % (11.5-15.5); Red Blood Count 4.67 m/uL (4.30-5.90)
[2024-03-10 21:24] LABS: Slide Review Reflex No
--- NOTE | 2024-03-10 21:30 | ED_ITS ---
HPI - General Adult General Time Seen by Provider: 21:31 Date Seen: 03/10/24 Chief complaint: Cough Stated complaint: cough/stomach Time Seen by Provider: 03/10/24 20:58 Source: patient, RN notes reviewed and old records reviewed Mode of arrival: ambulatory Limitations: no limitations History of Present Illness HPI narrative: 58-year-old male who presents today with cough, nausea, sore throat, and runny nose this been going on for about 2 weeks. Patient was seen in the emergency department and prescribed prednisone and albuterol with minimal improvement so return today. He denies chest pain, does note some shortness of breath. No lower extremity swelling. No abdominal pain but does have nausea and did vomit a couple of times. Has not taken any other medications for this. Denies fevers or chills. Related Data Home Medications ?Medication ?Instructions ?Recorded ?Confirmed Insulin See Rx Instructions .Route .COMPLEX 10/03/21 06/13/23 metformin 1,000 mg tablet 1,000 mg 10/03/21 glyburide 5 mg tablet 10 mg PO BID 12/19/22 06/13/23 insulin NPH isoph U-100 human 100 20 unit subcut BID 12/19/22 02/25/24 unit/mL subcutaneous suspension (Humulin N NPH U-100 Insulin (isophane susp)) lisinopril 20 mg tablet 20 mg PO DAILY 12/19/22 02/25/24 metformin 1,000 mg tablet 1,000 mg PO BIDWMEAL 12/19/22 02/25/24 polyethylene glycol 3350 17 17 g PO DAILY PRN 12/19/22 06/13/23 gram/dose oral powder (Miralax) aspirin 81 mg tablet,delayed 81 mg PO DAILY diabetes mellitus 06/13/23 06/13/23 release clotrimazole-betamethasone 1 applic topical 06/13/23 %-0.05 % topical cream Previous Rx's ?Medication ?Instructions ?Recorded sennosides 8.6 mg capsule (senna) 8.6 mg PO DAILY PRN constipation 12/19/22 #90 caps cyclobenzaprine 10 mg tablet 10 mg PO TID #15 tabs 03/30/23 ketorolac 10 mg tablet 10 mg PO Q8H 5 days #15 tabs 03/30/23 cyclobenzaprine 10 mg tablet 10 mg PO TID #15 tabs 05/12/23 ketorolac 10 mg tablet 10 mg PO Q8H 5 days #15 tabs 05/12/23 codeine 10 mg-guaifenesin 100 mg/5 10 ml PO Q4-6H PRN #200 mL 06/13/23 mL oral liquid polymyxin B sulfate 10,000 1 drp ophthalmic (eye) Q3H 7 days 06/13/23 unit-trimethoprim 1 mg/mL eye drops #10 mL omeprazole 20 mg capsule,delayed 20 mg PO DAILY #20 caps 11/17/23 release ondansetron 4 mg disintegrating 4 mg PO Q6H #20 tabs 11/17/23 tablet albuterol sulfate 90 mcg/actuation 2 puff inhalation 6XD PRN 02/25/24 aerosol inhaler shortness of breath or wheezing #6.7 grams codeine 10 mg-guaifenesin 100 mg/5 5 ml PO Q6H PRN #120 mL 02/25/24 mL oral liquid (Guaifenesin AC) prednisone 20 mg tablet 20 mg PO BID #10 tabs 02/25/24 Allergies Allergy/AdvReac Type Severity Reaction Status Date / Time No Known Drug Allergies Allergy Verified 10/29/23 18:49 [facility] PFSH Medical History Psoriasis ?L40.9 - Psoriasis, unspecified (ICD-10) Diabetes ?E11.9 - Type 2 diabetes mellitus without complications (ICD-10) Hypertension ?I10 - Essential (primary) hypertension (ICD-10) Social History What is your current living situation?: I presently have a place to live Problems where you live: no known problems Problems where you live details: no known problems In the past 12 months, utilities in danger of being shut off: yes In past 12 months, lack of transportation kept you from medical appts, meetings, work, or getting things needed for daily living: no In the past 12 mos, have been you worried that your food would run out before you had money to buy more?: sometimes true In the past 12 mos, the food you bought just didn't last and you didn't have money to buy more?: sometimes true Smoking Status: Never smoker Do you use any of these nicotine containing products: None Second hand tobacco smoke exposure: No How often do you have a drink containing alcohol: never AUDIT-C Alcohol total score: 0 Non-prescribed substance use: denies use Caffeine: Yes (Coffee) How often does anyone, including family, friends and others, physically hurt you : never How often does anyone, including family, friends and others, insult or talk down to you: never How often does anyone, including family, friends and others, threaten you with harm: never How often does anyone, including family, friends and others, scream or curse at you: never service: No Health Related Social Needs: food insecurity (Z59.41) Exam Narrative: Exam Narrative: General: Well-developed and well-nourished, no acute distress Head: Atraumatic and normocephalic Eyes: Pupils are equal reactive, extraocular motions intact, conjunctiva clear ENT: External nose and ears are normal, posterior pharynx without erythema or exudate Neck: No midline cervical tenderness, full spontaneous range of motion the neck, trachea midline, no adenopathy Heart: Tachycardic but regular Lungs: Trace inspiratory wheezes bilaterally with coarse expiratory wheezes Abdomen: Soft, nontender, nondistended with active bowel sounds Musculoskeletal: No tenderness, deformity, or edema Neurologic: Awake, alert, and oriented x3, no gross focal neurologic deficits, cranial nerves intact as tested Psych: Mood and affect are appropriate Skin: No rashes Const: Vital Signs, click to edit/add: Vital Signs - 24 hr 03/10/24 20:19 03/10/24 22:09 Temperature 98.3 F Pulse Rate [Pulse Oximeter] 109 H 100 Respiratory Rate 22 24 Blood Pressure [Ri ght Upper Arm] 118/64 128/80 Pulse Oximetry 97 96 Oxygen Delivery Me thod Room Air Room Air Course Course ED Course: Reviewed prior emergency department visit from February 24 when patient was seen with cough and sore throat which is been going on about a week at that time, no fevers, no shortness of breath at that time. Respiratory panel was negative, chest x-ray negative, patient discharged with prednisone, Robitussin, albuterol and instructions for outpatient follow-up. Patient returns with ongoing upper respiratory symptoms as well as vomiting. On exam here, patient is little tachycardic, no hypoxia, course bronchial expiratory wheezes and trace inspiratory wheezes. DuoNeb is ordered, labs ordered prior to my initial evaluation independently interpreted by me demonstrate normal white blood cell count normal hemoglobin, remaining labs are pending. Anticipate CT scan but will wait for D-dimer to see if this needs to be done as a PE study or not. DuoNeb ordered. Reevaluation(s) Time of Reevaluation #1: 22:13 Reevaluation #1: Labs ordered and independently interpreted by me with normal white blood cell count, normal hemoglobin, D-dimer negative, CT scan without contrast ordered due to elevated creatinine. Labs also showed creatinine 1.99 which is up from baseline of around 1, IV fluids initiated Time of Reevaluation #2: 22:44 Reevaluation #2: Labs independently interpreted by me with normal BNP, normal hepatic panel. CT scan of the chest independently interpreted by me with mild bronchial wall thickening, no acute infiltrate or effusion, no pericardial effusion. Time of Reevaluation #3: 22:56 Reevaluation #3: Reviewed radiology interpretation of CT scan, multiple pulmonary nodules that do not require follow-up this patient has no history of smoking. Patient is stable for discharge, will be started on doxycycline for possible atypical infection, no evidence for acute pneumonia, sepsis, heart failure, pulmonary embolism. Vital Signs Vital signs: Initial Vital Signs Temperature 98.3 F 03/10/24 20:19 Temperature Source Temporal Artery Scan 03/10/24 20:19 Pulse Rate 109 H 03/10/24 20:19 Respiratory Rate 22 03/10/24 20:19 Blood Pressure 118/64 03/10/24 20:19 Blood Pressure Mean 82 03/10/24 20:19 Blood Pressure Position Sitting 03/10/24 20:19 Pulse Oximetry 97 03/10/24 20:19 Oxygen Delivery Method Room Air 03/10/24 20:19 Vital Signs Temperature 98.3 F 03/10/24 20:19 Pulse Rate 109 H 03/10/24 20:19 Respiratory Rate 22 03/10/24 20:19 Blood Pressure 118/64 03/10/24 20:19 Pulse Oximetry 97 03/10/24 20:19 Oxygen Delivery Method Room Air 03/10/24 20:19 Temperature 98.3 F 03/10/24 20:19 Pulse Rate 100 03/10/24 22:09 Respiratory Rate 24 03/10/24 22:09 Blood Pressure 128/80 03/10/24 22:09 Pulse Oximetry 96 03/10/24 22:09 Oxygen Delivery Method Room Air 03/10/24 22:09 Medications Administered Medications: Generic Name Dose Route Start Last Admin Trade Name Olvin PRN Reason Stop Dose Admin Albuterol/Ipratropium 1 neb 03/10/24 21:43 03/10/24 21:49 Iprat-Albut 0.5-2.5 Mg/3 Ml Neb IH 03/10/24 21:44 1 neb ONCE ONE Administration Sodium Chloride 1,000 mls @ 1,000 mls/hr 03/10/24 22:15 03/10/24 22:20 0.9 % Sodium Chloride 1000 Ml IV 03/10/24 23:14 1,000 mls/hr .Q1H DAMIR Administration Medical Decision Making Lab Data Labs: Lab Results 03/10/24 Range/Units 21:15 WBC 7.80 (4.50-11.00) K/uL RBC 4.67 (4.30-5.90) m/uL Hgb 13.6 (13.5-17.5) gm/dL Hct 39.3 (37.0-53.0) % MCV 84 (80-100) fL MCH 29 (26-34) pg MCHC 35 (32-36) gm/dL RDW Coeff of Brendan 12.5 (11.5-15.5) % Plt Count 198 (140-440) K/uL Neut % (Auto) 69.5 (42.0-72.0) % Lymph % (Auto) 14.2 L (20-44) % [place] % (Auto) 14.0 H (0.0-11.0) % Eos % (Auto) 1.4 (0.0-7.0) % Baso % (Auto) 0.5 (0.0-3.0) % Neut # (Auto) 5.42 (1.7-7.0) K/uL Lymph # (Auto) 1.10 (0.90-2.90) K/uL [place] # (Auto) 1.10 H (0.00-0.90) K/UL Eos # (Auto) 0.11 (0.00-0.50) K/uL Baso # (Auto) 0.04 (0.00-0.30) K/uL Abs Immat Gran (auto) 0.03 (0.00-0.30) K/uL Imm/Tot Granulo (auto) 0.4 % D-Dimer Quant (PE/DVT) 0.47 (0.00-0.50) ug/ml Sodium 137 (135-149) mmol/L Potassium 4.1 (3.6-5.1) mmol/L Chloride 103 (96-114) mmol/L Carbon Dioxide 23 (20-32) mmol/L Anion Gap 11 (7-15) mEq/L BUN 30 (7-30) mg/dL Creatinine 1.9 H (0.5-1.5) mg/dL Estimated Creat Clear 35.92 Estimated GFR 41 ml/min Glucose 199 H (60-115) mg/dL Calcium 9.4 (8.4-10.6) mg/dL Magnesium 2.2 (1.5-2.6) mg/dL Total Bilirubin 0.5 (0.1-1.5) mg/dL Direct Bilirubin 0.2 (0.0-0.5) mg/dL AST 20 (12-35) U/L ALT 25 (4-50) U/L Alkaline Phosphatase 120 (40-150) U/L NT-Pro-B Natriuret Pep 138 pg/mL Total Protein 7.5 (6.0-8.3) g/dL Albumin 4.5 (3.3-5.0) g/dL Lipase 37 (23-300) U/L Discharge Plan Discharge Clinical Impression: Bronchitis Patient Disposition: Home, Self-Care Instructions: Acute Bronchitis (ED) Additional Instructions: Continue inhaler every 4 hours Take doxycycline as prescribed Activity Level: Activity as Tolerated Discharge Diet: Regular Prescriptions: No Action cyclobenzaprine 10 mg tablet 10 mg PO TID Qty: 15 0RF ketorolac 10 mg tablet 10 mg PO Q8H 5 Days Qty: 15 0RF aspirin 81 mg tablet,delayed release (DR/EC) 81 mg PO DAILY clotrimazole-betamethasone 1-0.05 % cream topical polymyxin B sulf-trimethoprim 10,000 unit- 1 mg/mL drops 1 drp ophthalmic (eye) Q3H 7 Days Qty: 10 0RF Rx Instructions: while awake; do not exceed 6 doses in 24 hours codeine-guaifenesin 10-100 mg/5 mL liquid 10 ml PO Q4-6H PRNQty: 200 0RF metformin 1,000 mg tablet 1,000 mg Patient Comments: TAKE ONE TABLET BY MOUTH TWICE A DAY WITH MORNING AND EVENING MEALS Insulin See Rx Instructions .ROUTE .COMPLEX Rx Instructions: 10units each AM; 15 units at noc; polyethylene glycol 3350 [Miralax] 17 gram/dose powder 17 g PO DAILY PRN Humulin N NPH U-100 Insulin 100 unit/mL suspension 20 unit subcut BID metformin 1,000 mg tablet 1,000 mg PO BIDWMEAL lisinopril 20 mg tablet 20 mg PO DAILY glyburide 5 mg tablet 10 mg PO BID senna 8.6 mg capsule 8.6 mg PO DAILY PRN (Reason: constipation) Qty: 90 0RF cyclobenzaprine 10 mg tablet 10 mg PO TID Qty: 15 0RF ketorolac 10 mg tablet 10 mg PO Q8H 5 Days Qty: 15 0RF omeprazole 20 mg capsule,delayed release(DR/EC) 20 mg PO DAILY Qty: 20 2RF ondansetron 4 mg tablet,disintegrating 4 mg PO Q6H Qty: 20 0RF prednisone 20 mg tablet 20 mg PO BID Qty: 10 0RF codeine-guaifenesin [Guaifenesin AC] 10-100 mg/5 mL liquid 5 ml PO Q6H PRNQty: 120 0RF albuterol sulfate 90 mcg/actuation HFA aerosol inhaler 2 puff inhalation 6XD PRN (Reason: shortness of breath or wheezing) Qty: 6.7 0RF Follow Up/Referrals: Provider,Not a Local [Primary Care Provider] - Stand Alone Forms: [employer] Info Instructions
[2024-03-10] MEDS: IPRAT-ALBUT 0.5-2.5 MG/3 ML NEB 1 NEB IH (21:49)
[2024-03-10 21:50] LABS: Albumin* 4.5 g/dL (3.3-5.0)
[2024-03-10 21:51] LABS: Chloride* 103 mmol/L (96-114); Potassium* 4.1 mmol/L (3.6-5.1); Sodium* 137 mmol/L (135-149)
[2024-03-10 21:53] LABS: Alkaline Phosphatase* 120 U/L (40-150); Anion Gap 11 mEq/L (7-15); Aspartate Amino Transferase* 20 U/L (12-35); Bilirubin Direct* 0.2 mg/dL (0.0-0.5); Bilirubin Total* 0.5 mg/dL (0.1-1.5); Blood Urea Nitrogen* 30 mg/dL (7-30); Carbon Dioxide* 23 mmol/L (20-32); Creatinine* 1.9 mg/dL (0.5-1.5); Est. Creatinine Clearance* 35.92; Estimated Glomerular Filt Rate 41 ml/min; Glucose* 199 mg/dL (60-115); Lipase* 37 U/L (23-300); Total Protein* 7.5 g/dL (6.0-8.3)
[2024-03-10 21:54] LABS: Alanine Aminotransferase* 25 U/L (4-50); Calcium* 9.4 mg/dL (8.4-10.6); Magnesium* 2.2 mg/dL (1.5-2.6)
[2024-03-10 21:55] LABS: D Dimer Quantitative* 0.47 ug/ml (0.00-0.50)
[2024-03-10 22:04] LABS: NT Pro B Type NatriureticPept* 138 pg/mL
[2024-03-10 22:09] VITALS: BP 128/80; PULSE 100; RESP 24; O2SAT 96
--- NOTE | 2024-03-10 22:14 | CRLHL7_ITS ---
For Patients: As a result of the Century Cures Act, medical imaging exams and procedure reports are released immediately into your electronic medical record. You may view this report before your referring provider. If you have questions, please contact your health care provider. INDICATION: Cough, dyspnea, vomiting. TECHNIQUE: CT chest without contrast. COMPARISON: None. FINDINGS: Lungs and pleura: No acute infiltrate. 5 mm middle lobe nodule (3/63) and 3 mm left lower lobe nodule (3/55). No pleural effusions, pleural thickening, or pneumothorax. Heart and vasculature: Heart size is normal. Thoracic aorta and pulmonary artery are normal in caliber. Atherosclerotic calcifications of the aortic arch. Mild coronary artery calcifications. Lymph nodes/mediastinum: No mediastinal, hilar, or axillary adenopathy. Chest wall: No masses. Upper abdomen: No significant findings. Small splenule. Bones: Unremarkable for age. IMPRESSION: 1. No acute findings. 2. Sub 6 mm pulmonary nodules that do not require follow-up unless the patient is considered high risk for the development of lung cancer. If the patient is high risk, follow-up CT in 12 months could be considered to ensure stability. Please note that all CT scans at this facility use dose modulation, iterative reconstruction, and/or weight-based dosing when appropriate to reduce radiation dose to as low as reasonably achievable. Dictated by Grant Londono MD @ 03/10/2024 10:46:49 PM (Electronically Signed)
[2024-03-10] MEDS: 0.9 % SODIUM CHLORIDE 1000 ml 1,000 ML IV (22:20)
== END 2024-03-10 23:45 | disposition home or self-care (01) ==
LOC: ED 23:33
PROVIDERS: Emergency Provider Family Medicine
DX: J20.9 Acute bronchitis, unspecified (principal)
CPT/HCPCS: 36415; 71250; 80048; 80076; 83690; 83735; 83880; 85025; 85379; 99283; 99284; J7030